=== PATIENT | male | born 1930 | race Caucasian/White ===

== ENCOUNTER 2017-04-05 08:04 | Outpatient (CLI) | payer MEDICARE, BC ==
--- OUTSIDE RECORDS SUMMARY | 2017-04-05 08:07 | XMS | Clinical Summary ---
:1930 Author Organization [facility] Address [address] [place] [address] Phone Care Team Providers Name Role Phone , Primary Care Provider Unavailable Allergies Not on File Current Medications Not on file Active Problems Not on file Social History Tobacco Use Types Packs/Day Years Used Date Never Assessed Sex Assigned at Date Recorded Not on file Last Filed Vital Signs Not on file Plan of Treatment Not on file Results Not on filefrom Last 3 Months
--- OUTSIDE RECORDS SUMMARY | 2017-04-05 08:07 | XMS | Clinical Summary ---
:1930 Author Organization [facility] Address [address] [place] [address] Phone Care Team Providers Name Role Phone [...]
[2017-04-05 09:35] LABS: Hematocrit 47.5 % (42.0-52.0); Mean Platelet Volume 8.3 fL (7.4-10.4); Red Blood Cell (RBC) Count 5.05 mill/uL (4.70-6.10); White Blood Cell (WBC) Count 9.6 thou/uL (4.8-10.8)
[2017-04-05 09:42] LABS: PTT 30.8 SEC (22.9-36.1); Prothrombin Time 14.2 SEC (12.0-14.7)
[2017-04-05 09:47] LABS: Anion Gap 14 mmol/L (10-20); BUN (Urea Nitrogen) 27 mg/dL (8.4-25.7); Calc. Creatinine Clearance 0 mL/min (70-130); Carbon Dioxide 26 mmol/L (23-31); Chloride 105 mmol/L (98-107); Estimated GFR-MDRD 48
== END 2017-04-05 08:05 | disposition home or self-care (01) ==
LOC: LABBT 08:04
PROVIDERS: ATTEND Urology
DX: Z01.812 Encounter for preprocedural laboratory examination (principal); N28.1 Cyst of kidney, acquired; Z87.442 Personal history of urinary calculi
CPT/HCPCS: 80048; 84153; 85027; 85610; 85730

== ENCOUNTER 2017-04-08 06:50 | Day surgery (SDC) | payer MEDICARE, BC ==
[2017-04-05 08:28] VITALS: BMI 26.6
--- OUTSIDE RECORDS SUMMARY | 2017-04-08 06:53 | XMS | Clinical Summary ---
:1930 Author Organization [facility] Address [address] [place] [address] Phone Care Team Providers Name Role Phone [...]
--- OUTSIDE RECORDS SUMMARY | 2017-04-08 06:53 | XMS | Clinical Summary ---
:1930 Author Organization [facility] Address [address] [place] [address] Phone Care Team Providers Name Role Phone [...]
[2017-04-08] MEDS ORDERED: Levofloxacin 500 mg/D5W 100 ml Premix Bag ONE (08:14)
[2017-04-08] MEDS ORDERED: Iothalamate Meglumine 60% 50 ML VIAL FS ONE (08:57)
[2017-04-08] MEDS ORDERED: Fentanyl 100 MCG/2 ML VIAL ONE (09:27)
[2017-04-08] MEDS ORDERED: Ondansetron HCl/PF 4 MG/2 ML Vial ONE (09:42)
[2017-04-08] MEDS ORDERED: PHENYLEPHRINE-NS 100 MCG/ML 10 ML SYRINGE ONE (09:42)
[2017-04-08] MEDS ORDERED: Dexamethasone 20 MG/5 ML VIAL ONE (09:42)
[2017-04-08] MEDS ORDERED: Propofol 200 MG/20 ML VIAL ONE (09:42)
[2017-04-08] MEDS ORDERED: mitoMYcin 40 MG, Mitomycin 10 MG in Sodium Chloride 0.9% 50 ML I-VESIC SCH (10:15)
--- NOTE | 2017-04-08 11:26 | RAD ---
RETROGRADE IVP: Date: 04/08/17 HISTORY: Bladder tumor. COMPARISON: 01/14/17. FINDINGS: There is retrograde opacification of both ureters. No obvious filling defects. No evidence of calice al dilatation. IMPRESSION: Fluoroscopy as above. POS: HARRY
--- NOTE | 2017-04-08 11:48 | OP ---
DATE OF PROCEDURE: 04/08/2017 PREOPERATIVE DIAGNOSIS: History of transitional cell carcinoma of the bladder. POSTOPERATIVE DIAGNOSIS: Recurrent tumor. PROCEDURES PERFORMED: Cystoscopy of bilateral retrogrades, transurethral resection of bladder tumor , and transurethral resection of prostate. SURGEON: Ayan Dickson M.D. ANESTHETIC: General. ESTIMATED BLOOD LOSS: Probably 50 mL. FINDINGS: He had some meatal stenosis and was gently dilated up to 26 Azerbaijani with Valentin sounds. 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 He had a 0.5 cm tumor on the anterior wall, a 1 cm tumor on the posterior wall, a tiny tumor in the mid trigone and then normal retrograde studies. OPERATIVE TECHNIQUE: After obtaining written and verbal consent from the patient after receiving IV antibiotics, he was taken to the operating suite. He was placed in the supine position on the [facility] table. PlexiPulses were placed on his lower extremities and turned on. He was given a genera l anesthetic and oral obturator intubation. He was placed in the dorsal lithotomy position and ster ilely prepped and draped. He was gently dilated with Valentin sounds from 18 up to 26 Azerbaijani and t hen the 22-Azerbaijani resectoscope sheath was placed under direct vision and well lubricated through the male urethra into the bladder with aid of 30-degree lens and video camera and monitor. The bladder was filled and emptied a number of times and examined with both the 30- and the 70-degree lenses wi th the findings above. The 30-degree lens was then used again and a 5 Azerbaijani Pollack catheter was f lushed with contrast. A tube fitter KUB was taken with the fluoroscopy unit and catheter was placed in th e left ureteral orifice and contrast was injected in a retrograde manner filling out the left ureter and renal pelvis and caliceal system slowly about 12 mL used. Right side was done in the same way. There were no persistent filling defects noted and each side drained well. At this point, the ins truments were removed. A 24-Azerbaijani resectoscope sheath with Lincoln obturator was passed through the male urethra into the bladder. An SpokenLayer resectoscope with a bladder tumor currently and a g yrus generator and 30-degree lens were used. We resected the anterior wall tumor, sent this specime n off, the posterior wall tumor sent this specimen off, the tiny tumor on the trigone was resected, but not sent off because of the size. We then resected the prostatic urethra where these tumors wer e involved and then elliked these specimen out and sent that off and then cauterized to obtain moi aponte. At this point, Felipe catheter was placed. It was hand irrigated and was light pink and then cleared up nicely. Mitomycin C was placed 50 mg in 50 mL of saline and the catheter was plugged. A rectal exam was done. There was no prosthetic induration or nodularity noted. The patient was ta perry out of dorsal lithotomy position, awakened, extubated, and taken by stretcher to the recovery ro om.
== END 2017-04-08 14:00 | disposition home or self-care (01) ==
LOC: SDC 06:50
PROVIDERS: ATTEND Urology
PROC: 0TBB8ZZ Excision of Bladder, Via Natural or Artificial Opening Endoscopic (ICD-10-PCS; principal; 2017-04-08)
PROC: 0VT08ZZ Resection of Prostate, Via Natural or Artificial Opening Endoscopic (ICD-10-PCS; 2017-04-08)
DX: C67.8 Malignant neoplasm of overlapping sites of bladder (principal); N40.0 Benign prostatic hyperplasia without lower urinary tract symptoms; N41.0 Acute prostatitis; N41.1 Chronic prostatitis; Z90.49 Acquired absence of other specified parts of digestive tract; Z98.42 Cataract extraction status, left eye; Z98.41 Cataract extraction status, right eye; Z98.890 Other specified postprocedural states
CPT/HCPCS: 52354; 52601; 74420; 82962; 88305; 88307; C1758; J9280 ×2; 36416; J1100; J1956; J2405; J2704; J3010; J7050; Q9961

== ENCOUNTER 2017-10-11 09:38 | Outpatient (CLI) | payer MEDICARE, BC ==
[2017-10-11 11:02] LABS: Hemoglobin 15.2 g/dL (14.0-18.0); Mean Corpuscular HGB CONC 33.5 g/dL (32.0-36.0); Mean Corpuscular Hemoglobin 31.5 pg (27.0-31.0); Mean Corpuscular Volume 94.2 fl (80.0-94.0); Mean Platelet Volume 8.2 fL (7.4-10.4); Platelet Count 207 thou/uL (130-400); Red Blood Cell (RBC) Count 4.83 mill/uL (4.70-6.10); White Blood Cell (WBC) Count 8.4 thou/uL (4.8-10.8)
[2017-10-11 11:11] LABS: PTT 30.4 SEC (22.9-36.1); Prothrombin Time 13.5 SEC (12.0-14.7)
[2017-10-11 11:12] LABS: Anion Gap 11 mmol/L (10-20); BUN (Urea Nitrogen) 21 mg/dL (8.4-25.7); Calc. Creatinine Clearance 0 mL/min (70-130); Calcium 9.9 mg/dL (7.8-10.44); Carbon Dioxide 27 mmol/L (23-31); Chloride 106 mmol/L (98-107); Estimated GFR-MDRD 43; Glucose 215 mg/dL (83-110); Potassium 4.1 mmol/L (3.5-5.1); Sodium 140 mmol/L (136-145)
== END 2017-10-11 09:39 | disposition home or self-care (01) ==
LOC: LABBT 09:38
PROVIDERS: ATTEND Urology
DX: Z01.818 Encounter for other preprocedural examination (principal); C67.9 Malignant neoplasm of bladder, unspecified
CPT/HCPCS: 80048; 85027; 85610; 85730; 93005; 93010

== ENCOUNTER 2017-10-14 06:39 | Day surgery (SDC) | payer MEDICARE, BC ==
[2017-10-11 10:15] VITALS: BMI 25.8
[2017-10-14] MEDS ORDERED: CEFAZOLIN/Water 2 GM/20 ML SYRINGE ONE (08:20)
[2017-10-14] MEDS ORDERED: Fentanyl 100 MCG/2 ML VIAL ONE (08:22)
--- NOTE | 2017-10-14 11:24 | OP ---
DATE OF PROCEDURE: 10/14/2017 PREOPERATIVE DIAGNOSES: History of transitional cell carcinoma of the bladder, recent positive FISH and bladder lesion. POSTOPERATIVE DIAGNOSES: History of transitional cell carcinoma of the bladder, recent positive FISH and bladder lesion. PROCEDURE PERFORMED: Cystoscopy, biopsy, TURBT. SURGEON: Dr. Ayan Dickson ANESTHETIC: General. ESTIMATED BLOOD LOSS: Minimal. DRAINS PLACED: An 18-New Zealander Felipe 15 mL. PATH SENT: Right wall 1 cm TURBT. Two tiny lesions near left ureteral orifice and then random biops ies, 3 separate specimens. OPERATIVE TECHNIQUE: After obtaining written and verbal consent from the patient after receiving IV antibiotics, he was taken the operating suite. He was placed in the supine position on the treatment table. PlexiPulses were placed on his lower extremities and turned on. He was given a general anes thetic, oral intubation. He was placed in the dorsal lithotomy position, sterilely prepped and drape d. Cystoscopy was performed with a 22-New Zealander sheath. This was well lubricated and passed in direct vision through the male urethra into the urinary bladder with aid of a 30-degree lens and video camer a and monitor. The bladder was filled and emptied a number of times and examined with both a 30 and a 70 lens. The lesions were identified. We used a cold cup biopsy forceps to get the 2 lesions by t galina left UO and then to do some random biopsies. We then removed the instruments, gently dilated him up to 26 New Zealander with Valentin sounds and passed a 24-New Zealander resectoscope with visual obturator and a 30-degree lens through the urethra and into the bladder. We used initially the gyrus to cauterize jeremy mojica biopsy sites and then to resect the tumor high in the right wall and these specimens were sent off . We controlled hemostasis, found it to be good, removed the instruments, passed a Felipe catheter, i nflated the balloon. It was draining a clear to light pink urine. He was awakened, extubated, and t terra by stretcher to recovery room.
[2017-10-14] MEDS ORDERED: Lidocaine 1% PF 5 ML VIAL ONE (16:19)
[2017-10-14] MEDS ORDERED: PROPOFOL 200 MG/20 ML VIAL ONE (16:19)
[2017-10-14] MEDS ORDERED: PHENYLEPHRINE-NS 100 MCG/ML 10 ML SYRINGE ONE (16:19)
[2017-10-14] MEDS ORDERED: Ondansetron HCl/PF 4 MG/2 ML Vial ONE (16:19)
== END 2017-10-14 12:09 | disposition home or self-care (01) ==
LOC: SDC 06:39
PROVIDERS: ATTEND Urology
PROC: 0TBB8ZX Excision of Bladder, Via Natural or Artificial Opening Endoscopic, Diagnostic (ICD-10-PCS; principal; 2017-10-14)
DX: Z98.890 Other specified postprocedural states; C67.9 Malignant neoplasm of bladder, unspecified
CPT/HCPCS: 36416; 88305; J2001; J2405; J2704; J3010

== ENCOUNTER 2018-07-16 08:27 | Outpatient (CLI) | payer MEDICARE, BC ==
[2018-07-16 09:30] LABS: Hemoglobin 16.2 g/dL (14.0-18.0); Mean Corpuscular HGB CONC 33.6 g/dL (32.0-36.0); Mean Corpuscular Hemoglobin 30.8 pg (27.0-31.0); Mean Corpuscular Volume 91.7 fL (78.0-98.0); Mean Platelet Volume 8.4 fL (7.4-10.4); Platelet Count 208 thou/uL (130-400); RBC Distribution Width 13.1 % (11.5-14.5); Red Blood Cell (RBC) Count 5.26 mill/uL (4.70-6.10); White Blood Cell (WBC) Count 7.7 thou/uL (4.8-10.8)
[2018-07-16 09:38] LABS: PTT 31.1 SEC (22.9-36.1)
[2018-07-16 09:52] LABS: Anion Gap 12 mmol/L (10-20); BUN (Urea Nitrogen) 36 mg/dL (8.4-25.7); Calc. Creatinine Clearance 0 mL/min (70-130); Calcium 9.8 mg/dL (7.8-10.44); Carbon Dioxide 27 mmol/L (23-31); Chloride 105 mmol/L (98-107); Estimated GFR-MDRD 45; Glucose 168 mg/dL (83-110); Potassium 4.3 mmol/L (3.5-5.1); Sodium 140 mmol/L (136-145)
== END 2018-07-16 08:28 | disposition home or self-care (01) ==
LOC: LABBT 08:27
PROVIDERS: ATTEND Urology
DX: Z01.812 Encounter for preprocedural laboratory examination (principal); C67.9 Malignant neoplasm of bladder, unspecified

== ENCOUNTER 2018-07-21 05:35 | Day surgery (SDC) | payer MEDICARE, BC ==
[2018-07-16 08:53] VITALS: BMI 27.3
[2018-07-21] MEDS ORDERED: Levofloxacin 500 mg/D5W 100 ml Premix Bag ONE (06:19)
[2018-07-21] MEDS ORDERED: Fentanyl 100 MCG/2 ML VIAL ONE (06:41)
[2018-07-21] MEDS ORDERED: Iothalamate Meglumine 60% 50 ML VIAL FS ONE (07:10)
--- NOTE | 2018-07-21 09:10 | RAD ---
RETROGRADE URETEROGRAM: History: Bladder tumor. FINDINGS: Intraoperative fluoroscopy was provided for retrograde study as performed by Dr. Marte. Spot fluoros copic images show contrast opacification of each nondilated renal collecting system and ureter. No ev idence of leak. POS: HARRY
--- NOTE | 2018-07-21 15:26 | OP ---
DATE OF PROCEDURE: 07/21/2018 PREOPERATIVE DIAGNOSES: 1. Bladder lesion. 2. History of transitional cell carcinoma of the bladder. POSTOPERATIVE DIAGNOSES: 1. Bladder lesion. 2. History of transitional cell carcinoma of the bladder. PROCEDURE PERFORMED: Cysto bilateral retrogrades and biopsy and fulguration of bladder lesions, right wall ANESTHESIA: General. ESTIMATED BLOOD LOSS: Minimal. DRAINS: None. PATHOLOGY SENT: Right wall biopsies x4. FINDINGS: There is an area in the right wall that is raised and inflamed mucosa that was biopsied with a cold cup biopsy and then cauterized. Retrograde studies showed no evidence of persistent filling defects or obstruction hydronephrosis. DESCRIPTION OF PROCEDURE: Obtained written and verbal consent from the patient, after receiving IV antibiotics, he was taken to the OR and placed in a supine position on the treatment table.Cystoscopy was performed witha 22 fr sheath and 30 degree lens. It was passed well lubricated through the male urethra and into the bladder. The bladder was filled and emptied number of times and examined both the 30 and the 70-degree lens. The above findings are as mentioned. A 5-Nepali cone-tipped catheter was brought in and flushed with contrast. it was placed into the right uo and contrast was slowly injected in a retrograde manner. Images were taken with fluoroscopy unit. There was a little bit of reflex of the left side. The left side was done and in a similiar manner and drainage films were taken on both sides. At this point, a cold cup biopsy forceps was used to biopsy the area on the right wall and then a Bugbee was used to cauterize the biopsy sites and this surrounding area. The patient did not have a catheter left in. The instruments were removed. He was awakened and extubated and taken by a stretcher to the recovery room. Job ID: [id number] [facility]
[2018-07-21] MEDS ORDERED: Ondansetron PF 4 MG/2 ML Vial ONE (16:05)
[2018-07-21] MEDS ORDERED: Metoclopramide HCl 10 MG/2 ML VIAL ONE (16:05)
[2018-07-21] MEDS ORDERED: Rocuronium Bromide 10 MG/ML (10ML VIAL) ONE (16:05)
[2018-07-21] MEDS ORDERED: PHENYLEPHRINE-NS 100 MCG/ML 10 ML SYRINGE ONE (16:05)
[2018-07-21] MEDS ORDERED: Lidocaine 1% PF 5 ML VIAL ONE (16:05)
[2018-07-21] MEDS ORDERED: PROPOFOL 200 MG/20 ML VIAL ONE (16:05)
[2018-07-21] MEDS ORDERED: Glycopyrrolate 0.2 MG/ML 5 ML SYRINGE ONE (16:05)
== END 2018-07-21 13:00 | disposition home or self-care (01) ==
LOC: SDC 05:35
PROVIDERS: ATTEND Urology
PROC: 0TBB8ZX Excision of Bladder, Via Natural or Artificial Opening Endoscopic, Diagnostic (ICD-10-PCS; principal; 2018-07-21)
DX: N30.00 Acute cystitis without hematuria (principal); N30.20 Other chronic cystitis without hematuria; N32.89 Other specified disorders of bladder; I10 Essential (primary) hypertension; E11.9 Type 2 diabetes mellitus without complications; Z85.51 Personal history of malignant neoplasm of bladder; Z79.4 Long term (current) use of insulin; Z79.82 Long term (current) use of aspirin; Z79.899 Other long term (current) drug therapy
CPT/HCPCS: 52204; 74420; 82962; 88305; C1758; 36416; J1956; J2001; J2405; J2704; J2765; J3010; Q9961

== ENCOUNTER 2019-04-28 07:18 | Inpatient (IN) | payer MEDICARE, BC ==
[2019-04-28 08:08] LABS: #Basophils 0.1 thou/uL (0.0-0.2); #Eosinphils 0.1 thou/uL (0.0-0.7); #Monocytes 1.1 thou/uL (0.11-0.59); #Neutrophils 6.6 thou/uL (1.40-6.50); %Basophils 0.7 % (0.0-1.0); %Eosinophils 0.6 % (0.0-10.0); %Lymphocytes 20.1 % (21.0-51.0); %Monocytes 11.1 % (0.0-10.0); %Neutrophils 67.6 % (42.0-75.0); Hemoglobin 14.4 g/dL (14.0-18.0); Mean Corpuscular HGB CONC 33.1 g/dL (32.0-36.0); Mean Corpuscular Hemoglobin 30.5 pg (27.0-31.0); Mean Corpuscular Volume 92.2 fL (78.0-98.0); Platelet Count 224 thou/uL (130-400); RBC Distribution Width 12.8 % (11.5-14.5); Red Blood Cell (RBC) Count 4.71 mill/uL (4.70-6.10); White Blood Cell (WBC) Count 9.7 thou/uL (4.8-10.8)
[2019-04-28 08:18] LABS: PTT 33.5 SEC (22.9-36.1); Prothrombin Time 13.5 SEC (12.0-14.7)
[2019-04-28 08:38] LABS: ALT (SGPT) 10 U/L (8-55); AST (SGOT) 14 U/L (5-34); Alkaline Phosphatase 145 U/L (40-110); Anion Gap 10 mmol/L (10-20); BUN (Urea Nitrogen) 25 mg/dL (8.4-25.7); Bilirubin, Total 0.7 mg/dL (0.2-1.2); Calc. Creatinine Clearance 0 mL/min (70-130); Carbon Dioxide 30 mmol/L (23-31); Chloride 103 mmol/L (98-107); Estimated GFR-MDRD 53; Glucose 121 mg/dL (83-110); Potassium 3.7 mmol/L (3.5-5.1); Sodium 139 mmol/L (136-145)
[2019-04-28] MEDS ORDERED: Senokot S 8.6-50 MG TAB PO PRN (13:10)
[2019-04-28] MEDS ORDERED: Acetaminophen 325 MG TAB PO PRN (13:10)
--- NOTE | 2019-04-28 14:13 | HP ---
PRIMARY CARE PHYSICIAN: Dr. Yuen. CHIEF COMPLAINT: Hematochezia. HISTORY OF PRESENT ILLNESS: Mr. Espino is a very pleasant 89-year-old man who reported to the emergency room for hematochezia x1 week. Reports that he has gotten worse in the last 3 days. Describes bright red blood intermittent throughout the day and reports abdominal fullness, but denies any particular pain. Denies any dizziness or shortness of breath. He denies any symptoms of anything similar and denies a history of hemorrhoids. Reports that he has had a colonoscopy in the past, but it was quite some time ago. He denies taking any blood thinners. Reports that he was on Eliquis at some point, but has been taken off it by the EP doctor in [place]. The patient has a past medical history pertinent for diabetes type 2, hypertension, cardiac arrhythmias status post pacemaker, bladder cancer surgery x2. The patient was found to have normal hemoglobin 14.4, hematocrit 43.4, and platelet count is 224. Occult blood positive. Comprehensive metabolic panel unremarkable and PT and PTT also within normal limits. The patient was admitted to the medical floor for further management. REVIEW OF SYSTEMS: The patient denies any fever or chills. Reports hematochezia, stool changes. Denies any nausea, vomiting, or abdominal pain. Reports fullness. Denies any dysuria or hematuria. All other systems reviewed and negative unless mentioned in the HPI. PAST MEDICAL HISTORY: Diabetes, hypertension, arrhythmia status post pacemaker, gout, high cholesterol bladder cancer. PAST SURGICAL HISTORY: Bladder cancer x2, left leg surgery, pacemaker placement, cholecystectomy. PSYCHIATRIC HISTORY: None. SOCIAL HISTORY: Denies any alcohol or drug use. No smoking history. PHYSICAL EXAMINATION: VITAL SIGNS: Blood pressure 142/61, pulse 61, respirations 24, temperature 98.2, and O2 sats are 96% on room air. CONSTITUTIONAL: The patient is in no distress. He is alert and oriented to person, place, and time. Appears pain-free. HEENT: Head is atraumatic and normocephalic. Eyes, pupils are equally round and reactive to light. Extraocular muscles are intact. ENT, mouth exam is normal. Mucous membranes are moist. NECK: Normal range of motion. Trachea is midline. RESPIRATORY: Chest, breath sounds are clear. Chest expansion is equal. CARDIOVASCULAR: Regular rate and rhythm. Has a systolic murmur 2/6. ABDOMEN: Nontender. Bowel sounds are heard. Rectal exam performed in the ER. Stool red, prostate firm, no hemorrhoids were noted. BACK: Normal range of motion. No tenderness. EXTREMITIES: Upper extremity, normal inspection, normal range of motion. Motor strength is normal. Radial pulses are normal. Lower extremity, normal range of motion. Motor strength is normal. Pedal pulses are normal. There is no edema noted. NEUROLOGIC: The patient is oriented to person, place, and time. Speech is normal. SKIN: Warm, dry, normal in color. PLAN/ASSESSMENT: 1. Lower gastrointestinal bleed. Ask GI to consult. Iron studies have been placed. Repeat hemoglobin and hematocrit in 6 hours. 2. Protonix 40 mg q.12 hours. Hold any medications such as aspirin, clear liquid diet starting at dinner. 3. Diabetes, type 2. Restart home medications. Accu-Cheks before meals and at bedtime. Sliding scale as needed. 4. Hypertension. Restart home medications. We will trend. 5. Hospital course dependent on clinical findings. Job ID: [id number]
[2019-04-28 14:50] LABS: Iron 63 ug/dL (65-175); Iron Binding Capacity, Total 223 mcg/dL (261-462)
[2019-04-28] MEDS: Sodium Chloride 0.9% 1,000 ML IV SCH (16:05)
[2019-04-28 16:54] VITALS: BMI 23.3
[2019-04-28] MEDS ORDERED: traMADol HCl 50 MG TAB PO PRN (18:32)
[2019-04-28] MEDS ORDERED: HumaLOG 300 UNITS/3 ML VIAL SC PRN ×2 (18:32)
[2019-04-28] MEDS ORDERED: Dextrose 50% Abboject 50 ML SYRINGE SLOW IVP PRN (18:32)
[2019-04-28] MEDS ORDERED: Dextrose 5% in Water 1,000 ML IV PRN (18:32)
[2019-04-28 19:21] LABS: Hemoglobin 14.1 g/dL (14.0-18.0)
[2019-04-28] MEDS ORDERED: Non-Formulary Item 1 EACH (Amlodipine/Atorvastatin [Caduet] 1 TABLET) PO SCH (21:00)
[2019-04-28] MEDS: Allopurinol 300 MG TAB PO SCH (21:06)
[2019-04-28] MEDS: Atenolol 25 MG TAB PO SCH (21:06)
[2019-04-28] MEDS: Atorvastatin Calcium 10 MG TAB PO SCH (21:07)
[2019-04-28] MEDS: Famotidine 20 MG TAB PO SCH (21:07)
[2019-04-28] MEDS: Amlodipine 5 MG TAB PO SCH (21:07)
[2019-04-28] MEDS: Pantoprazole 40 MG VIAL IVP SCH (21:09)
[2019-04-29] MEDS: Sodium Chloride 0.9% 1,000 ML IV SCH ×4 (02:00→15:40)
[2019-04-29 07:27] LABS: #Eosinphils 0.1 thou/uL (0.0-0.7); #Monocytes 0.9 thou/uL (0.11-0.59); #Neutrophils 6.5 thou/uL (1.40-6.50); %Basophils 0.3 % (0.0-1.0); %Eosinophils 1.1 % (0.0-10.0); %Lymphocytes 21.3 % (21.0-51.0); %Monocytes 9.7 % (0.0-10.0); %Neutrophils 67.6 % (42.0-75.0); Hemoglobin 13.6 g/dL (14.0-18.0); Mean Corpuscular Hemoglobin 31.2 pg (27.0-31.0); Mean Corpuscular Volume 91.7 fL (78.0-98.0); Mean Platelet Volume 8.3 fL (7.4-10.4); Platelet Count 214 thou/uL (130-400); RBC Distribution Width 12.9 % (11.5-14.5); Red Blood Cell (RBC) Count 4.37 mill/uL (4.70-6.10); White Blood Cell (WBC) Count 9.6 thou/uL (4.8-10.8)
[2019-04-29 07:57] LABS: ALT (SGPT) 9 U/L (8-55); AST (SGOT) 13 U/L (5-34); Albumin 3.6 g/dL (3.4-4.8); Alkaline Phosphatase 127 U/L (40-110); Anion Gap 14 mmol/L (10-20); BUN (Urea Nitrogen) 20 mg/dL (8.4-25.7); Bilirubin, Total 1.3 mg/dL (0.2-1.2); Calc. Creatinine Clearance 56 mL/min (70-130); Calcium 9.1 mg/dL (7.8-10.44); Carbon Dioxide 25 mmol/L (23-31); Chloride 103 mmol/L (98-107); Estimated GFR-MDRD 67; Globulin 2.8 g/dL (2.4-3.5); Glucose 119 mg/dL (83-110); Potassium 3.9 mmol/L (3.5-5.1); Protein, Total 6.4 g/dL (5.8-8.1); Sodium 138 mmol/L (136-145)
[2019-04-29] MEDS: Famotidine 20 MG TAB PO SCH ×2 (08:54→20:42)
[2019-04-29] MEDS: Pantoprazole 40 MG VIAL IVP SCH ×2 (08:55→20:43)
[2019-04-29] MEDS: Hydrochlorothiazide 25 MG TAB PO SCH (08:55)
[2019-04-29] MEDS: Valsartan 80 MG TAB PO SCH (08:58)
[2019-04-29] MEDS ORDERED: Non-Formulary Item 1 EACH (Valsartan/Hydrochlorothiazide [Valsartan-Hctz 160-12.5 Mg Tab] PO SCH (09:00)
--- NOTE | 2019-04-29 13:58 | PDOC.HOSPP ---
- Subjective Encounter Date: 04/29/19 Encounter Time: 10:15 Subjective: Patient seen and examined. No new complaints. No overnight events now no bleeding but has urge to go but do not have BM - Objective Vital Signs & Weight: Vital Signs (12 hours) Temp Pulse Resp BP Pulse Ox 04/29/19 08:00 95 04/29/19 06:55 97.8 F 67 18 105/61 95 04/29/19 04:00 97.5 F L 60 15 123/65 95 Weight Weight 176 lb 9.6 oz Result Diagrams: 04/29/19 06:41 04/29/19 06:41 Additional Labs: Accuchecks 04/29/19 04/29/19 04/28/19 11:59 05:11 20:41 POC Glucose 134 H 109 166 H Hospitalist ROS - Review of Systems Constitutional: denies: fever, chills, sweats, weakness, malaise, other Eyes: denies: pain, vision change, conjunctivae inflammation, eyelid inflammation, redness, other ENT: denies: ear pain, ear discharge, nose pain, nose discharge, nose congestion , mouth pain, mouth swelling, throat pain, throat swelling, other Respiratory: denies: cough, dry, shortness of breath, hemoptysis, SOB with excertion, pleuritic pain, sputum, wheezing, other Cardiovascular: denies: chest pain, palpitations, orthopnea, paroxysmal noc. dyspnea, edema, light headedness, other Gastrointestinal: denies: nausea, vomiting, abdominal pain, diarrhea, constipation, melena, hematochezia, other Genitourinary: denies: dysuria, frequency, incontinence, hematuria, retention, other Musculoskeletal: denies: neck pain, shoulder pain, arm pain, back pain, hand pain, leg pain, foot pain, other Skin: denies: rash, lesions, jeny, bruising, other - Medication Medications: Active Medications Generic Name Dose Route Start Last Admin Trade Name Freq PRN Reason Stop Dose Admin Allopurinol 300 mg 04/28/19 21:00 04/28/19 21:06 Zyloprim PO 300 mg QPM TAMMY Administration Amlodipine Besylate 5 mg 04/28/19 21:00 04/28/19 21:07 Norvasc PO 5 mg HS TAMMY Administration Atenolol 25 mg 04/28/19 21:00 04/28/19 21:06 Tenormin PO 25 mg HS TAMMY Administration Atorvastatin Calcium 10 mg 04/28/19 21:00 04/28/19 21:07 Lipitor PO 10 mg HS TAMMY Administration Famotidine 20 mg 04/28/19 21:00 04/29/19 08:54 Pepcid PO 20 mg BID TAMMY Administration Hydrochlorothiazide 12.5 mg 04/29/19 09:00 04/29/19 08:55 Hydrochlorothiazide PO Not Given DAILY TAMMY Sodium Chloride 1,000 mls @ 75 mls/hr 04/28/19 13:15 04/29/19 05:05 Normal Saline 0.9% IV 1,000 mls .[id number] TAMMY Administration Pantoprazole Sodium 40 mg 04/28/19 21:00 04/29/19 08:55 Protonix IVP 40 mg Q12HR TAMMY Administration Valsartan 160 mg 04/29/19 09:00 04/29/19 08:58 Diovan PO Not Given DAILY TAMMY - Exam General Appearance: NAD, awake alert Eye: PERRL, anicteric sclera ENT: normocephalic atraumatic, no oropharyngeal lesions Neck: supple, symmetric, no JVD, no thyromegaly Heart: RRR, no murmur, no gallops, no rubs Respiratory: CTAB, no wheezes, no rales, no ronchi Gastrointestinal: soft, non-tender, non-distended, normal bowel sounds Extremities: no cyanosis, no clubbing, no edema Skin: normal turgor, no lesions, no rashes Neurological: cranial nerve grossly intact, normal sensation to touch, no focal deficits Musculoskeletal: normal tone, normal strength Psychiatric: normal affect, normal behavior Hosp A/P (1) Lower GI bleed Code(s): K92.2 - GASTROINTESTINAL HEMORRHAGE, UNSPECIFIED Status: Acute (2) Diabetes type 2, controlled Code(s): E11.9 - TYPE 2 DIABETES MELLITUS WITHOUT COMPLICATIONS Status: Chronic Qualifiers: Diabetes mellitus senior care insulin use: with intermediate accountant use Diabetes mellitus complication status: without complication Qualified Code(s): E11.9 - Type 2 diabetes mellitus without complications; Z79.4 - retirement (current) use of insulin (3) Gout Code(s): M10.9 - GOUT, UNSPECIFIED Status: Chronic Qualifiers: Laterality: unspecified laterality Presence of tophus: without tophus (4) HTN (hypertension) Code(s): I10 - ESSENTIAL (PRIMARY) HYPERTENSION Status: Chronic Qualifiers: Hypertension type: essential hypertension Qualified Code(s): I10 - Essential (primary) hypertension - Plan old records reviewed/req 04/29/19 H & H mild drop, no need for blood transfusion GI consulted May need colonoscopy continue IVF, clear liquid diet medication reviewed as above symptomatic treatment
[2019-04-29] MEDS ORDERED: GoLYTELY 4,000 ml Bottle PO SCH (15:00)
--- NOTE | 2019-04-29 16:39 | CON ---
DATE OF CONSULTATION: REASON FOR CONSULT: Rectal bleeding. HISTORY OF PRESENT ILLNESS: Mr. Espino is an 89-year-old man, who was admitted to the hospital with chief complaint of having rectal bleeding for the last 2 weeks. He reports having had rectal bleeding characterized as mostly bright red blood per rectum associated with bowel movement over the last 2 weeks. The stool frequency has increased 3 to 4 times daily during this time. He denies any diarrhea. He denies having any bloody diarrhea or passing clots. Other than having some fullness in the lower abdomen, he denies any localizing pain. Otherwise, he has been eating well with good appetite. There is no nausea or vomiting. There is no weight loss. He did have a colonoscopy by Dr. Forest Fleming 10 years ago, at which time, diffuse diverticulosis was noted. A benign transverse polyp was removed. PAST MEDICAL HISTORY: 1. Hypertension. 2. Diabetes. 3. Hyperlipidemia. 4. History of bladder cancer. 5. Status post pacemaker placement. 6. Status post cholecystectomy. FAMILY HISTORY: Negative for any known GI problem, liver disease, or GI malignancy. SOCIAL HISTORY: The patient has no tobacco or alcohol usage. REVIEW OF SYSTEMS: Ten-point review of systems did not show any other pertinent positives or negatives. ALLERGIES: NO KNOWN DRUG ALLERGY. MEDICATIONS: At home include; 1. Insulin. 2. Tenormin 25 mg at bedtime. 3. Allopurinol 200 mg daily. 4. Multivitamin. 5. Valsartan/hydrochlorothiazide 160/12.5 daily. 6. Aspirin 81 mg daily. 7. Caduet one p.o. at bedtime. 8. Tramadol p.r.n. pain. PHYSICAL EXAMINATION: VITAL SIGNS: Temperature is 97.8, blood pressure 105/61, and pulse of 67. GENERAL: He is alert, conversant, no distress. HEENT: Anicteric sclerae. Oropharynx is clear. NECK: Supple. CV: Shows normal S1 and S2. Regular rate and rhythm. CHEST: Shows a breath sounds. ABDOMEN: Mildly protuberant, but soft and nontender. No distention. No tympany. He has active bowel sounds. EXTREMITIES: Shows no edema. LABORATORY DATA: WBCs 9.6, hemoglobin 13.6, MCV of 91.7, and platelet count of 214. Electrolytes within normal range. Creatinine is 1.05, bilirubin 1.3, alkaline phosphatase 127, AST 13, and ALT 9. ASSESSMENT: Rectal bleeding x2 weeks with some change in bowel function during this time. He did have history of diverticulosis coli; however, his current bleeding is not typical for diverticular bleed. With history of having adenomatous polyp, a more aggressive process is a possibility. Alternatively, he could just have benign rectal outlet bleeding. The patient is not anemic. Currently, he feels fine without any bleeding over the last 36 hours. RECOMMENDATION: 1. Bowel prep today. 2. Proceed with colonoscopy in a.m. Job ID: [id number]
[2019-04-29] MEDS: Allopurinol 300 MG TAB PO SCH (20:41)
[2019-04-29] MEDS: Amlodipine 5 MG TAB PO SCH (20:42)
[2019-04-29] MEDS: Atenolol 25 MG TAB PO SCH (20:42)
[2019-04-29] MEDS: Atorvastatin Calcium 10 MG TAB PO SCH (20:43)
[2019-04-30] MEDS: Sodium Chloride 0.9% 1,000 ML IV SCH ×2 (05:41→17:25)
[2019-04-30] MEDS: Valsartan 80 MG TAB PO SCH (10:12)
[2019-04-30] MEDS: Pantoprazole 40 MG VIAL IVP SCH ×2 (10:12→20:33)
[2019-04-30] MEDS: Famotidine 20 MG TAB PO SCH ×2 (10:12→20:32)
[2019-04-30] MEDS: Hydrochlorothiazide 25 MG TAB PO SCH (10:12)
--- NOTE | 2019-04-30 10:35 | PDOC.HOSPP ---
- Subjective Encounter Date: 04/30/19 Encounter Time: 09:10 Subjective: Patient seen and examined. No new complaints. No overnight events - Objective Vital Signs & Weight: Vital Signs (12 hours) Temp Pulse Resp BP Pulse Ox 04/30/19 08:00 95 04/30/19 07:42 98.1 F 64 16 122/62 95 04/30/19 05:19 97.6 F 62 18 131/62 94 L 04/30/19 00:25 97.4 F L 59 L 18 114/60 94 L Weight Weight 176 lb 9.6 oz Result Diagrams: 04/29/19 06:41 04/29/19 06:41 Additional Labs: Accuchecks 04/30/19 04/29/19 04/29/19 04:47 19:11 15:35 POC Glucose 117 H 238 H 130 H 04/29/19 11:59 POC Glucose 134 H Hospitalist ROS - Review of Systems Eyes: denies: pain, vision change, conjunctivae inflammation, eyelid inflammation, redness, other ENT: denies: ear pain, ear discharge, nose pain, nose discharge, nose congestion , mouth pain, mouth swelling, throat pain, throat swelling, other Respiratory: denies: cough, dry, shortness of breath, hemoptysis, SOB with excertion, pleuritic pain, sputum, wheezing, other Cardiovascular: denies: chest pain, palpitations, orthopnea, paroxysmal noc. dyspnea, edema, light headedness, other Gastrointestinal: reports: hematochezia. denies: nausea, vomiting, abdominal pain, diarrhea, constipation, melena, other Genitourinary: denies: dysuria, frequency, incontinence, hematuria, retention, other Musculoskeletal: denies: neck pain, shoulder pain, arm pain, back pain, hand pain, leg pain, foot pain, other Skin: denies: rash, lesions, jeny, bruising, other - Medication Medications: Active Medications Generic Name Dose Route Start Last Admin Trade Name Freq PRN Reason Stop Dose Admin Allopurinol 300 mg 04/28/19 21:00 04/29/19 20:41 Zyloprim PO 300 mg QPM TAMMY Administration Amlodipine Besylate 5 mg 04/28/19 21:00 04/29/19 20:42 Norvasc PO 5 mg HS TAMMY Administration Atenolol 25 mg 04/28/19 21:00 04/29/19 20:42 Tenormin PO 25 mg HS TAMMY Administration Atorvastatin Calcium 10 mg 04/28/19 21:00 04/29/19 20:43 Lipitor PO 10 mg HS TAMMY Administration Famotidine 20 mg 04/28/19 21:00 04/30/19 10:12 Pepcid PO Not Given BID TAMMY Hydrochlorothiazide 12.5 mg 04/29/19 09:00 04/30/19 10:12 Hydrochlorothiazide PO Not Given DAILY TAMMY Sodium Chloride 1,000 mls @ 75 mls/hr 04/28/19 13:15 04/30/19 05:41 Normal Saline 0.9% IV 1,000 mls .[id number] TAMMY Administration Pantoprazole Sodium 40 mg 04/28/19 21:00 04/30/19 10:12 Protonix IVP Not Given Q12HR TAMMY Valsartan 160 mg 04/29/19 09:00 04/30/19 10:12 Diovan PO Not Given DAILY TAMMY - Exam General Appearance: NAD, awake alert Eye: PERRL, anicteric sclera ENT: normocephalic atraumatic, no oropharyngeal lesions Neck: supple, symmetric, no JVD, no thyromegaly Heart: RRR, no murmur, no gallops, no rubs Respiratory: CTAB, no wheezes, no rales, no ronchi Gastrointestinal: soft, non-tender, non-distended, normal bowel sounds Extremities: no cyanosis, no clubbing, no edema Skin: normal turgor, no lesions Neurological: cranial nerve grossly intact, no focal deficits Musculoskeletal: normal tone, normal strength Psychiatric: normal affect, normal behavior Hosp A/P (1) Lower GI bleed Code(s): K92.2 - GASTROINTESTINAL HEMORRHAGE, UNSPECIFIED Status: Acute (2) Diabetes type 2, controlled Code(s): E11.9 - TYPE 2 DIABETES MELLITUS WITHOUT COMPLICATIONS Status: Chronic Qualifiers: Diabetes mellitus mold yard worker insulin use: with mold yard worker use Diabetes mellitus complication status: without complication Qualified Code(s): E11.9 - Type 2 diabetes mellitus without complications; Z79.4 - tile sprayer (current) use of insulin (3) Gout Code(s): M10.9 - GOUT, UNSPECIFIED Status: Chronic Qualifiers: Laterality: unspecified laterality Presence of tophus: without tophus (4) HTN (hypertension) Code(s): I10 - ESSENTIAL (PRIMARY) HYPERTENSION Status: Chronic Qualifiers: Hypertension type: essential hypertension Qualified Code(s): I10 - Essential (primary) hypertension - Plan old records reviewed/req 04/29/19 H & H mild drop, no need for blood transfusion GI consulted May need colonoscopy continue IVF, clear liquid diet medication reviewed as above symptomatic treatment 04/30/19 today colonoscopy medication reviewed as above symptomatic treatment
[2019-04-30] MEDS ORDERED: ISOVUE-370 76%-LOCM 1 ML ONE (11:30)
[2019-04-30] MEDS ORDERED: HYDROmorphone 2 MG/ML VIAL SLOW IVP PRN (15:05)
[2019-04-30] MEDS ORDERED: Meperidine HCl/PF 25 MG/ML VIAL SLOW IVP PRN (15:05)
[2019-04-30] MEDS ORDERED: Promethazine HCl 25 MG/ML VIAL SLOW IVP PRN (15:05)
[2019-04-30] MEDS ORDERED: Morphine Sulfate 2 MG/ML SYRINGE SLOW IVP PRN (15:05)
[2019-04-30] MEDS ORDERED: Ondansetron HCl/PF 4 MG/2 ML Vial IVP PRN (15:05)
[2019-04-30] MEDS ORDERED: Ketorolac Tromethamine 30 MG/ML VIAL IVP PRN (15:05)
[2019-04-30] MEDS ORDERED: Promethazine HCl 25 MG/ML VIAL IM PRN (15:05)
[2019-04-30] MEDS ORDERED: PACU-Morphine 4MG/ML VIAL SLOW IVP PRN (15:05)
--- NOTE | 2019-04-30 18:22 | OP ---
DATE OF PROCEDURE: 04/30/2019 PREPROCEDURE DIAGNOSES: 1. Rectal bleeding for 2 weeks. 2. Associated change in bowel function. 3. Fullness in lower abdomen with pain. 4. History of bladder cancer. POSTPROCEDURE DIAGNOSES: 1. A 10-mm pedunculated polyp in the ascending colon, removed with snare polypectomy. 2. Rectal mass with induration and firmness in the anterior and left lateral wall of the rectum endoscopically. This extended for a distance of about 10 cm and showed a very contracted rectum with a feeling of induration of the rectal wall. It is unclear if this is a primary rectal lesion or something invading from the exterior or some type of radiation effect. Multiple biopsies were obtained. RECOMMENDATIONS: 1. CT scan of the abdomen and pelvis. 2. Transfuse. 3. Await biopsies. ANESTHESIA: TIVA. PROCEDURE IN DETAIL: After the patient was informed of the risks, benefits, and possible complications of endoscopy including perforation, bleeding, reaction to medication, and aspiration, informed consent was obtained. The patient was brought to endoscopy suite, where he was sedated in gradual fashion. He was placed in left lateral decubitus position. A rectal exam was performed. Rectal exam was grossly abnormal with narrowed constricted lumen, which was hard and fibrotic with a feeling of hardness and infiltration of the anterior and left lateral wall of the rectum. The posterior and right side were more soft. There was some scant blood on the examining glove. The endoscope was advanced to the anal canal for a distance of about 10 cm. Rectum was contracted with some signs of submucosal edema and hemorrhage. There was abnormal tissue in the very distal rectum and the appearance of a primary rectal cancer, something infiltrating in the wall. Again, the radiation effect or invading malignancy would be a concern for the prostate or bladder, although primary rectal cancer would be a thought as well. Multiple biopsies were taken from this area. The endoscope was then advanced to remainder of the colon, which was prepped well. There were a few small polyps in the ascending and cecal area, but these were not removed. There was a 1 cm semi-pedunculated polyp in the ascending colon, which was removed with a hot snare polypectomy. No other polyps, masses, or lesions were seen. Retroflexed views were not able to be obtained in the rectum due to the extreme compression. The scope was returned to forward position and removed. There was no evidence of perianal lesions. Job ID: [id number]
--- NOTE | 2019-04-30 19:09 | CT ---
CT ABDOMEN AND PELVIS WITH IV CONTRAST 04/30/2019 CLINICAL INFORMATION: Rectal mass COMPARISON: None. Technique: Multiple contiguous axial CT images are obtained through the abdomen and pelvis with IV contrast. Cor onal reformatted images are provided. FINDINGS: Lower Chest: There is prominent fat density at the right lung base which likely represents a pleural lipoma. Linear areas of atelectasis are seen at each lung base. There is a very tiny nonspecific 3 mm nodular density in the anterior aspect of the right middle lobe. Vessels: A dual-lead subclavian artery pacemaking device is noted in place. Vascular calcifications a nd atherosclerotic plaque are seen in the abdominal aorta and involving the iliac arteries. There is an infrarenal abdominal aortic aneurysm just above the level of the aortic bifurcation which measu res 3.9 cm x 3.5 cm with eccentric atherosclerotic plaque present. The aneurysm does not extend into the iliac arteries. Abdomen: Portal vein:Patent Gallbladder: Surgically absent. Liver: No focal hepatic lesions are seen. Spleen: Multiple splenic granulomata present. Pancreas: within normal limits. Adrenals: within normal limits. Kidneys: A 2.2 cm exophytic low-density lesion is seen at the posteromedial aspect superior pole righ t kidney which cannot be characterized as a simple cyst on this exam. There is a fluid attenuation approximately 2.2 cm hypodense lesion superior pole left kidney compatible with a cyst. Subcentimeter too small to characterize hypodense lesions are seen involving the kidneys bilaterally. There is no hydronephrosis. Bowel: There is a large rectal mass with extension of the mass into the adjacent perirectal fat with adjacent perirectal inflammatory changes. This large rectal mass measures approximately 11.4 cm craniocaudal x 4.9 cm transverse x 6.2 cm AP. The mass does not result in obstruction. There is colon ic diverticulosis present involving the descending colon. Appendix: The appendix is visualized and normal in caliber. Peritoneum: No ascites or free air; no fluid collection. Mesentery and Retroperitoneum: There is an enlarged lymph node to the right of the large rectal mass measuring 1.4 cm with enlarged lymph nodes along each iliac chain also measuring 1.4 cm in short axis dimension. There is an enlarged right paracaval lymph node seen inferiorly measuring 1.3 cm in s hort axis dimension. Additional small but nonenlarged aortocaval lymph nodes are present. Abdominal Wall: There is a small right inguinal hernia containing a small amount of fluid. Pelvis: Reproductive Organs: No pelvic masses. Pelvis within normal limits. Bladder: Minimal wall thickening, this is likely related to incomplete distention. Bones: Degenerative changes are seen in the visualized thoracic as well as lumbar spine. No suspiciou s lytic or sclerotic osseous lesions are seen. IMPRESSION: 1. Large irregular rectal mass with extension into the perirectal fat especially on the left and post erolaterally on the left with adjacent perirectal inflammatory stranding and fluid. Also an enlarged right perirectal lymph node with enlarged lymph nodes along each iliac chain and adjacent to the IVC. 2. Infrarenal abdominal aortic aneurysm. 3. Difficult to characterize hypodense superior pole right renal lesion. Follow-up CT scan following renal mass protocol is recommended. 4. Additional findings as described above.
[2019-04-30] MEDS: Atenolol 25 MG TAB PO SCH (20:31)
[2019-04-30] MEDS: Amlodipine 5 MG TAB PO SCH (20:32)
[2019-04-30] MEDS: Atorvastatin Calcium 10 MG TAB PO SCH (20:32)
[2019-04-30] MEDS: Allopurinol 300 MG TAB PO SCH (20:32)
[2019-05-01] MEDS: Pantoprazole 40 MG VIAL IVP SCH ×2 (09:22→20:13)
[2019-05-01] MEDS: Sodium Chloride 0.9% 1,000 ML IV SCH ×2 (09:29→20:18)
[2019-05-01] MEDS: Valsartan 80 MG TAB PO SCH (09:31)
[2019-05-01] MEDS: Hydrochlorothiazide 25 MG TAB PO SCH (09:31)
[2019-05-01] MEDS: Famotidine 20 MG TAB PO SCH ×2 (09:31→20:13)
[2019-05-01 10:17] LABS: Hemoglobin 13.7 g/dL (14.0-18.0)
--- NOTE | 2019-05-01 10:20 | PRG ---
DATE OF SERVICE: 05/01/2019 SUBJECTIVE: Mr. Espino is resting in bed. He is feeling well. He states that he is still having a little bit of rectal bleeding on and off. OBJECTIVE: VITAL SIGNS: Temperature is 97, pulse 65, and blood pressure 150/86. ABDOMEN: Soft and nontender. There is no suprapubic tenderness. LABORATORY DATA: None except for CEA of 9.6 yesterday. ASSESSMENT: 1. Rectal bleeding, ongoing. 2. Rectal mass, seems to be infiltrating from exterior, which favor either metastatic bladder cancer or primary rectal/anal squamous cancer. There was 11 cm mass in the pelvis on CT. RECOMMENDATIONS: 1. Consult Oncology. Consult Radiation/Oncology. I have done both. 2. Monitor H and H. 3. Await pathology. 4. We will follow from a distance from a GI standpoint. Dr. Keen be on-call over the weekend if needed. I have talked directly both with Radiation/Oncology and Oncology as they can evaluate him here or at least set up followup in the outpatient if his hemoglobin remained stable. He can probably go home and see them in the outpatient setting Saturday, however his fifth pathology comes back this evening that may be helpful. 5. If the patient has recurrent bleeding, he would need to stay in the hospital until he can have definitive treatment. Job ID: [id number]
--- NOTE | 2019-05-01 11:43 | PDOC.HOSPP ---
- Subjective Encounter Date: 05/01/19 Encounter Time: 09:15 Subjective: Patient seen and examined. No new complaints. No overnight events - Objective Vital Signs & Weight: Vital Signs (12 hours) Temp Pulse Resp BP Pulse Ox 05/01/19 08:00 95 05/01/19 07:22 97.8 F 65 18 150/86 H 95 05/01/19 05:14 97.5 F L 61 18 114/63 93 L 05/01/19 00:09 98.0 F 67 19 97/59 L 92 L Weight Weight 176 lb 9.6 oz Result Diagrams: 05/01/19 10:09 04/29/19 06:41 Additional Labs: Accuchecks 05/01/19 04/30/19 04/30/19 04:07 19:02 16:44 POC Glucose 189 H 134 H 97 04/30/19 11:26 POC Glucose 114 H Hospitalist ROS - Review of Systems Eyes: denies: pain, vision change, conjunctivae inflammation, eyelid inflammation, redness, other ENT: denies: ear pain, ear discharge, nose pain, nose discharge, nose congestion , mouth pain, mouth swelling, throat pain, throat swelling, other Respiratory: denies: cough, dry, shortness of breath, hemoptysis, SOB with excertion, pleuritic pain, sputum, wheezing, other Cardiovascular: denies: chest pain, palpitations, orthopnea, paroxysmal noc. dyspnea, edema, light headedness, other Gastrointestinal: denies: nausea, vomiting, abdominal pain, diarrhea, constipation, melena, hematochezia, other Genitourinary: denies: dysuria, frequency, incontinence, hematuria, retention, other Musculoskeletal: denies: neck pain, shoulder pain, arm pain, back pain, hand pain, leg pain, foot pain, other Skin: denies: rash, lesions, jeny, bruising, other - Medication Medications: Active Medications Generic Name Dose Route Start Last Admin Trade Name Freq PRN Reason Stop Dose Admin Allopurinol 300 mg 04/28/19 21:00 04/30/19 20:32 Zyloprim PO 300 mg QPM TAMMY Administration Amlodipine Besylate 5 mg 04/28/19 21:00 04/30/19 20:32 Norvasc PO 5 mg HS TAMMY Administration Atenolol 25 mg 04/28/19 21:00 04/30/19 20:31 Tenormin PO 25 mg HS TAMMY Administration Atorvastatin Calcium 10 mg 04/28/19 21:00 04/30/19 20:32 Lipitor PO 10 mg HS TAMMY Administration Famotidine 20 mg 04/28/19 21:00 05/01/19 09:31 Pepcid PO 20 mg BID TAMMY Administration Hydrochlorothiazide 12.5 mg 04/29/19 09:00 05/01/19 09:31 Hydrochlorothiazide PO 12.5 mg DAILY TAMMY Administration Sodium Chloride 1,000 mls @ 75 mls/hr 04/28/19 13:15 05/01/19 09:29 Normal Saline 0.9% IV 1,000 mls .[id number] TAMMY Administration Pantoprazole Sodium 40 mg 04/28/19 21:00 05/01/19 09:22 Protonix IVP 40 mg Q12HR TAMMY Administration Valsartan 160 mg 04/29/19 09:00 05/01/19 09:31 Diovan PO 160 mg DAILY TAMMY Administration - Exam General Appearance: NAD, awake alert Eye: PERRL, anicteric sclera ENT: normocephalic atraumatic, no oropharyngeal lesions Neck: supple, symmetric, no JVD, no thyromegaly Heart: RRR, no murmur, no gallops, no rubs Respiratory: CTAB, no wheezes, no rales, no ronchi Gastrointestinal: soft, non-tender, non-distended, normal bowel sounds Extremities: no cyanosis, no clubbing, no edema Skin: normal turgor, no lesions, no rashes Neurological: cranial nerve grossly intact, no focal deficits Musculoskeletal: normal tone, normal strength Hosp A/P (1) Lower GI bleed Code(s): K92.2 - GASTROINTESTINAL HEMORRHAGE, UNSPECIFIED Status: Acute (2) Diabetes type 2, controlled Code(s): E11.9 - TYPE 2 DIABETES MELLITUS WITHOUT COMPLICATIONS Status: Chronic Qualifiers: Diabetes mellitus assisted insulin use: with assisted use Diabetes mellitus complication status: without complication Qualified Code(s): E11.9 - Type 2 diabetes mellitus without complications; Z79.4 - custodial (current) use of insulin (3) Gout Code(s): M10.9 - GOUT, UNSPECIFIED Status: Chronic Qualifiers: Laterality: unspecified laterality Presence of tophus: without tophus (4) HTN (hypertension) Code(s): I10 - ESSENTIAL (PRIMARY) HYPERTENSION Status: Chronic Qualifiers: Hypertension type: essential hypertension Qualified Code(s): I10 - Essential (primary) hypertension (5) Rectal mass Code(s): K62.89 - OTHER SPECIFIED DISEASES OF ANUS AND RECTUM Status: Acute - Plan old records reviewed/req, plan discussed w/ family 04/29/19 H & H mild drop, no need for blood transfusion GI consulted May need colonoscopy continue IVF, clear liquid diet medication reviewed as above symptomatic treatment 04/30/19 today colonoscopy medication reviewed as above symptomatic treatment 05/01/19 oncology and radiation oncology consulted follow up on pathology report discharge later on
--- NOTE | 2019-05-01 13:54 | DIS ---
DATE OF ADMISSION: 04/28/2019 DATE OF DISCHARGE: 05/01/2019 PRIMARY CARE PHYSICIAN: Ramsey Yuen MD DISCHARGE DISPOSITION: Home. PRIMARY DISCHARGE DIAGNOSES: 1. Rectal bleeding due to rectal mass. 2. Ascending colon polyps, status post snare polypectomy. SECONDARY DISCHARGE DIAGNOSES: 1. Diabetes type 2. 2. Gout. 3. Hypertension. PRIMARY PROCEDURE/OPERATION: The patient underwent colonoscopy and found with a 10 mm pedunculated polyp in ascending colon, which was removed with snare polypectomy and rectal mass with induration and firmness in anterior and left lateral wall of the rectum, which was biopsied. RADIOLOGICAL INVESTIGATION: CT abdomen and pelvis was done, which showed large irregular rectal mass with extension into perirectal fat especially on the left with positive lymph node, infrarenal abdominal aortic aneurysm, difficult to characterize hypodense superior pole right renal lesion and that is why the patient will need a CT renal mass protocol after discharge. SIGNIFICANT LABORATORY DATA: WBC 9.6, hemoglobin 13.7, platelets 214. INR 1.0. CEA 9.68. Sodium 138, creatinine 1.05. LFT unremarkable. Stool for guaiac positive. DISCHARGE MEDICATIONS: 1. Allopurinol 300 mg p.o. daily. 2. Caduet (amlodipine with Lipitor) 5/10 one tablet at bedtime. 3. Aspirin 81 mg daily. 4. Tenormin 25 mg at bedtime. 5. NovoLog insulin 9 units subcutaneous in the evening and Tresiba 28 units subcutaneous at bedtime. 6. Multivitamin 1 tablet p.o. daily. 7. Potassium gluconate 1 tablet daily. 8. Tramadol 50 mg q.6 hourly p.r.n. 9. Valsartan with hydrochlorothiazide 1 tablet p.o. daily. CONTRAINDICATION: None. CODE STATUS: Full code. INPATIENT CASING FINISHER AND STUFFER: Gastroenterology, Dr. Humphries and Dr. Conley was following while in hospital. TEST RESULTS PENDING ON DISCHARGE: Pathology report for rectal mass and colon polyp. DISCHARGE PLAN: Posthospital, the patient is discharged to home and subsequently, he will need followup with Oncology and Radiation Oncology as well as primary care physician and GI as instructed. HOSPITAL COURSE: An 89-year-old male, who was admitted by Asha Sousa. The patient was having lower abdominal fullness, increased frequency of stool, but without any significant results and the patient was also having hematochezia and that is why he was admitted in the hospital. The patient was evaluated by [facility], and they did colonoscopy. Colonoscopy showed ascending colon polyp, which was removed with snare polypectomy, but also found with rectal mass and he also had a surrounding perirectal fat involvement as well as positive lymph node. The patient had CT abdomen and pelvis that confirmed above finding. The patient is waiting for pathology report before discharge. We are doing Oncology consultation and Radiation Oncology consultation. After confirmed pathology report, the patient will get appropriate treatment as an outpatient basis. Plan of care discussed with the patient and the patient's son. The patient is seen and examined at bedside today. At this point, after consultation with Oncology and Radiation Oncology, we will consider discharging him home and he will follow up with them as an outpatient basis. The patient is seen and examined at bedside today. Please see my progress note from today for further detail. Job ID: [id number]
--- NOTE | 2019-05-01 16:28 | CON ---
DATE OF CONSULTATION: 05/01/2019 REASON FOR CONSULTATION: Mr. Espino is an 89-year-old gentleman, who appears to have a possible rectal cancer. I was asked to see him to discuss his treatment options. HISTORY OF PRESENT ILLNESS: Mr. Espino has a history of a superficial bladder cancer. He apparently has been on maintenance intravesicular BCG. This last treatment was done several weeks ago by Dr. Dickson. Shortly after that last treatment, he began experiencing some rectal bleeding. He was having at least 4 to 5 bowel movements per day, and the bleeding was fairly significant. He subsequently came to the emergency room, where he was admitted for workup and evaluation. He did undergo a CT scan of the abdomen and pelvis. This showed an approximate 11.4 cm rectal mass that appeared to extend into the adjacent perirectal fat with perirectal inflammatory changes. Colonic diverticulosis was present. There was an enlarged lymph node to the right of the rectal mass as well as enlarged lymph nodes along each iliac chain measuring about 1.4 cm. There was a right common iliac lymph node measuring 1.3 cm. He did undergo a colonoscopy by Dr. Conley. This showed a contracted rectum for a distance of about 10 cm with induration of the rectal wall. Biopsies were obtained, which are currently pending. He has several polyps removed as well. The biopsy is currently pending. I have been asked to see him by Dr. Conley to discuss his treatment options. Presently, he reports that the bleeding has been less during the last 2 days, especially today. He has not had a bowel movement today. He denies any pain in the pelvis or any other areas of pain. He has no shortness of breath and denies any weight loss. He voices no other complaints. PAST MEDICAL HISTORY: 1. Hypertension. 2. Diabetes. 3. Hypercholesterolemia. 4. History of superficial bladder cancer with recurrence in the past 20 years, which have been treated with TURBT and BCG. He denies ever having had chemotherapy or radiation. 5. Status post pacemaker placement. 6. Status post cholecystectomy. 7. Status post ORIF of the left ankle from traumatic fracture. MEDICATIONS: 1. . 2. Tenormin. 3. Lipitor. 4. Pepcid. 5. Hydrochlorothiazide. 6. Protonix. 7. Senokot S. 8. Ultram. 9. Diovan. ALLERGIES: NO KNOWN MEDICAL ALLERGIES. SOCIAL HISTORY: He lives in [place], [place], very close to the hospital. He has no tobacco or alcohol use. He is retired. FAMILY HISTORY: His mother at age 85 from a perforated colon. His father at age 80 from a malignant brain tumor. There is no other family history of malignancy. REVIEW OF SYSTEMS: A 12-system review of systems is otherwise negative. PHYSICAL EXAMINATION: VITAL SIGNS: Height 61 inches. Weight 176 pounds. Blood pressure is 138/65, pulse is 61, respirations are 26, temperature is 98.2, and O2 saturation is 97% on room air. CONSTITUTIONAL: He is alert and oriented and in no apparent distress. He is well developed and well nourished. Karnofsky performance status is a 90%. HEENT: Eyes; pupils are equal, round, and reactive to light. Extraocular movements are intact. ENT, oral cavity and oropharynx normal without lesion or erythema. Palate elevates symmetrically. Gingiva is intact. NECK: Supple without preauricular, submandibular, cervical, or supraclavicular adenopathy. No thyromegaly. Larynx is midline. LUNGS: Breathing nonlabored. Clear to auscultation and percussion. CARDIOVASCULAR: Regular rate and rhythm with a 3/6 systolic murmur. No lower extremity edema. BACK: No tenderness on fist percussion of the spine. LYMPHATIC: No axillary or inguinal adenopathy. ABDOMEN: Bowel sounds present. Soft, nontender, nondistended without mass or hepatosplenomegaly. Liver percusses normal size. RECTAL: Deferred. SKIN: Without rash or purpura. NEUROLOGIC: Cranial nerves 2 through 12 are grossly intact. Motor strength is 5/5 in both upper and lower extremities in all muscle groups tested. Gait was not tested. LABORATORY DATA: Pathology is currently pending. CBC on 04/29/2019 revealed a white blood cell count of 9600 with a hemoglobin of 13.6, hematocrit of 40.1, and platelet count of 214,000. Hemoglobin today was 13.7. Chemistry group showed normal electrolytes on admission with a glucose of 119. Total bilirubin was 1.3. Alkaline phosphatase was 127. CEA was elevated at 9.68. RADIOLOGIC DATA: CT scan of the abdomen and pelvis on 04/30/2019 was personally reviewed. Again, he appears to have an 11.6 cm rectal mass with extension into the adjacent perirectal fat. This mass does not appear to be arising off the bladder. He does have colonic diverticulosis. He has a lymph node adjacent to the rectal mass measuring 1.4 cm. He also has a right external iliac and left external iliac lymph node measuring 1.4 cm. There is a right common iliac lymph node measuring 1.3 cm. No definite evidence of metastatic disease. He incidentally had a 3.9 cm abdominal aortic aneurysm. ASSESSMENT: Mr. Espino is an 89-year-old gentleman, who has been diagnosed with a rectal mass that is suspicious for malignancy. Whether this is a primary rectal cancer or not is unknown at this time as the biopsy is currently pending. There is some concern because the mass did not appear to be arising from the mucosa, but rather appeared to be more extrinsic and infiltrating into the rectum. By CT scan, it does look to be a primary rectal mass. It does not appear to be arising off the bladder. PLAN: I had a long discussion with Mr. Espino and his family regarding his diagnosis, prognosis, prognostic factors, and treatment options. We discussed significance of the CT findings. We discussed the concern for this being a rectal cancer. I did explain to them that we will need to await the biopsy report before determining how best to proceed. If the biopsy confirms malignancy, then we would proceed with the appropriate treatment for the malignancy. If the biopsy was to show some other cause for the rectal mass, then of course it would be treated appropriately according to the cause. The enlarged lymph nodes could be from the rectal mass and could represent metastatic disease to the lymph nodes or alternatively there can be some enlargement of the lymph nodes because of his recent treatment with BCG. If the biopsy confirms rectal cancer, then I think likely we are going to obtain a PET scan as an outpatient to help stage his disease before making a final treatment decision. I did discuss with them that if this is rectal cancer, the typical treatment is usually concurrent chemotherapy and radiation followed by surgical resection. If this was to show some other unusual histology such as lymphoma or something of that nature, then the treatment might be entirely different. I did briefly discuss with them that radiation is typically a daily treatment and may go over a number of weeks depending on what type of cancer it was to be. So, we will await the biopsy results before making a final determination on how best to proceed and how best to complete his staging. He does not from my perspective had to stay in the hospital until the biopsy results are known. His hemoglobin seems to be fairly stable. We can certainly follow him up as an outpatient next week once the biopsy results are obtained to make a final decision about his treatment. Time was taken to answer all of their questions regarding the present situation regarding our present knowledge of his situation. They are agreeable to follow up as an outpatient. These arrangements will be made after discharge. Thank you for this interesting consultation. Job ID: [id number]
[2019-05-01] MEDS: Allopurinol 300 MG TAB PO SCH (20:12)
[2019-05-01] MEDS: Atorvastatin Calcium 10 MG TAB PO SCH (20:13)
[2019-05-01] MEDS: Amlodipine 5 MG TAB PO SCH (20:13)
[2019-05-01] MEDS: Atenolol 25 MG TAB PO SCH (20:14)
[2019-05-02] MEDS: Valsartan 80 MG TAB PO SCH (07:59)
[2019-05-02] MEDS: Famotidine 20 MG TAB PO SCH (07:59)
[2019-05-02] MEDS: Hydrochlorothiazide 25 MG TAB PO SCH (07:59)
[2019-05-02] MEDS: Pantoprazole 40 MG VIAL IVP SCH (07:59)
--- NOTE | 2019-05-02 10:05 | PDOC.HOSPP ---
- Subjective Encounter Date: 05/02/19 Encounter Time: 08:45 Subjective: Patient seen and examined. No new complaints. No overnight events - Objective Vital Signs & Weight: Vital Signs (12 hours) Temp Pulse Resp BP Pulse Ox 05/02/19 07:37 96 05/02/19 07:20 97.7 F 60 18 119/56 L 96 Weight Weight 176 lb 9.6 oz I&O: 05/01/19 05/02/19 05/03/19 06:59 06:59 06:59 Intake Total 1140 Balance 1140 Result Diagrams: 05/01/19 10:09 04/29/19 06:41 Additional Labs: Accuchecks 05/02/19 05/01/19 05/01/19 04:37 19:36 18:11 POC Glucose 136 H 181 H 156 H 05/01/19 11:47 POC Glucose 155 H Hospitalist ROS - Review of Systems Eyes: denies: pain, vision change, conjunctivae inflammation, eyelid inflammation, redness, other ENT: denies: ear pain, ear discharge, nose pain, nose discharge, nose congestion , mouth pain, mouth swelling, throat pain, throat swelling, other Respiratory: denies: cough, dry, shortness of breath, hemoptysis, SOB with excertion, pleuritic pain, sputum, wheezing, other Cardiovascular: denies: chest pain, palpitations, orthopnea, paroxysmal noc. dyspnea, edema, light headedness, other Gastrointestinal: denies: nausea, vomiting, abdominal pain, diarrhea, constipation, melena, hematochezia, other Genitourinary: denies: dysuria, frequency, incontinence, hematuria, retention, other Musculoskeletal: denies: neck pain, shoulder pain, arm pain, back pain, hand pain, leg pain, foot pain, other Skin: denies: rash, lesions, jeny, bruising, other - Medication Medications: Active Medications Generic Name Dose Route Start Last Admin Trade Name Freq PRN Reason Stop Dose Admin Allopurinol 300 mg 04/28/19 21:00 05/01/19 20:12 Zyloprim PO 300 mg QPM TAMMY Administration Amlodipine Besylate 5 mg 04/28/19 21:00 05/01/19 20:13 Norvasc PO 5 mg HS TAMMY Administration Atenolol 25 mg 04/28/19 21:00 05/01/19 20:14 Tenormin PO Not Given HS TAMMY Atorvastatin Calcium 10 mg 04/28/19 21:00 05/01/19 20:13 Lipitor PO 10 mg HS TAMMY Administration Famotidine 20 mg 04/28/19 21:00 05/02/19 07:59 Pepcid PO 20 mg BID TAMMY Administration Hydrochlorothiazide 12.5 mg 04/29/19 09:00 05/02/19 07:59 Hydrochlorothiazide PO 12.5 mg DAILY TAMMY Administration Sodium Chloride 1,000 mls @ 75 mls/hr 04/28/19 13:15 05/01/19 20:18 Normal Saline 0.9% IV 1,000 mls .[id number] TAMMY Administration Insulin Human Lispro 0 units 04/28/19 18:32 05/01/19 18:36 Humalog SC 2 unit .MILD SLIDING SCALE PRN Administration Mild Correctional Scale Pantoprazole Sodium 40 mg 04/28/19 21:00 05/02/19 07:59 Protonix IVP 40 mg Q12HR TAMMY Administration Valsartan 160 mg 04/29/19 09:00 05/02/19 07:59 Diovan PO 160 mg DAILY TAMMY Administration - Exam General Appearance: NAD, awake alert Eye: PERRL, anicteric sclera ENT: normocephalic atraumatic, no oropharyngeal lesions Neck: supple, symmetric, no JVD, no thyromegaly Heart: RRR, no murmur, no gallops, no rubs, normal peripheral pulses Respiratory: CTAB, no wheezes, no rales, no ronchi Gastrointestinal: soft, non-tender, non-distended, normal bowel sounds Extremities: no cyanosis, no clubbing, no edema Skin: normal turgor, no lesions, no rashes Neurological: cranial nerve grossly intact, no focal deficits Musculoskeletal: normal tone, normal strength Psychiatric: normal affect, normal behavior, A&O x 3 Hosp A/P (1) Lower GI bleed Code(s): K92.2 - GASTROINTESTINAL HEMORRHAGE, UNSPECIFIED Status: Acute (2) Diabetes type 2, controlled Code(s): E11.9 - TYPE 2 DIABETES MELLITUS WITHOUT COMPLICATIONS Status: Chronic Qualifiers: Diabetes mellitus boom operator insulin use: with usp use Diabetes mellitus complication status: without complication Qualified Code(s): E11.9 - Type 2 diabetes mellitus without complications; Z79.4 - family services assistant (current) use of insulin (3) Gout Code(s): M10.9 - GOUT, UNSPECIFIED Status: Chronic Qualifiers: Laterality: unspecified laterality Presence of tophus: without tophus (4) HTN (hypertension) Code(s): I10 - ESSENTIAL (PRIMARY) HYPERTENSION Status: Chronic Qualifiers: Hypertension type: essential hypertension Qualified Code(s): I10 - Essential (primary) hypertension (5) Rectal mass Code(s): K62.89 - OTHER SPECIFIED DISEASES OF ANUS AND RECTUM Status: Acute - Plan old records reviewed/req 04/29/19 H & H mild drop, no need for blood transfusion GI consulted May need colonoscopy continue IVF, clear liquid diet medication reviewed as above symptomatic treatment 04/30/19 today colonoscopy medication reviewed as above symptomatic treatment 05/01/19 oncology and radiation oncology consulted follow up on pathology report discharge later on 05/02/19 medication reviewed as above symptomatic treatment see my discharge summery will discharge today
[2019-05-02 10:18] VITALS: BP 147/74; TEMP 97.6
--- NOTE | 2019-05-04 07:41 | DIS ---
DATE OF ADMISSION: 04/28/2019 DATE OF DISCHARGE: 05/02/2019 ADDENDUM: Please see my discharge summary dictated yesterday for more detail. After my discharge summary dictated, Dr. Maximilian Dumont saw this patient and he recommended outpatient radiation therapy. We have also received pathology report from rectal biopsy and that is consistent with squamous cell carcinoma well differentiated and polyp pathology is consistent with tubular adenoma. Rest of my discharge summary has not changed. The patient will continue all his previous medication as per discharge summary and he has already appointment with Oncology after discharge. Job ID: [id number]
--- NOTE | 2019-05-04 09:10 | CON ---
DATE OF CONSULTATION: REASON FOR CONSULT: Rectal mass. HISTORY OF PRESENT ILLNESS: Mr. Espino is a pleasant 89-year-old gentleman, who presented to the emergency room with hematochezia x1 week. He had intermittent episodes of rectal bleeding over the last several days. His hemoglobin was normal at 14.4, but his occult blood was positive. He was admitted for further workup. GI was consulted. He underwent a colonoscopy. There was a rectal mass with induration in the anterolateral wall of the rectum. Biopsies were taken. He then underwent a CT scan confirming the 11 cm mass. The patient has a history of bladder cancer being treated by Dr. Dickson. He had a treatment approximately 2 weeks ago. The patient states his bleeding has significantly decreased. He has no complaints of pain. PAST MEDICAL HISTORY: 1. Bladder cancer. 2. Hypertension. 3. Diabetes. 4. Hyperlipidemia. PAST SURGICAL HISTORY: 1. Pacemaker placement. 2. Cholecystectomy. ALLERGIES: NO KNOWN DRUG ALLERGIES. HOME MEDICATIONS: 1. Insulin. 2. Tenormin. 3. Allopurinol. 4. Valsartan/hydrochlorothiazide. 5. Aspirin. 6. Caduet. 7. Tramadol. FAMILY HISTORY: No history of GI malignancies. SOCIAL HISTORY: , [place] with his . No alcohol, tobacco, or illicit drug use. REVIEW OF SYSTEMS: A 10-point review of systems is negative except for noted in HPI. PHYSICAL EXAMINATION: VITAL SIGNS: Temperature is 98.2, pulse is 61, respiratory rate 18, blood pressure is 138/65, he is 97% on room air. GENERAL: This is a well-developed, well-nourished male, who appears younger than his stated age, in no acute distress. HEENT: Normocephalic, atraumatic. Pupils are equal and reactive to light. NECK: Supple. CARDIOVASCULAR: Regular rate and rhythm. He has a 3/6 murmur. LUNGS: Clear to anterior. ABDOMEN: Soft and nontender. Bowel sounds are positive. EXTREMITIES: No clubbing or cyanosis or edema. SKIN: No rash. HEMATOLOGICAL: There is no petechiae or purpura. NEUROLOGIC: Nonfocal. PSYCHIATRIC: He is alert, oriented, and appropriate. PERTINENT LABORATORY DATA AND X-RAYS: Current WBCs 9.6, hemoglobin 13.7, hematocrit 40.5, platelet count is 214,000, 67% neutrophils, 21% lymphocytes. PT 13.5, INR is 1.0, PTT 33.5. Sodium is 138, potassium 3.9, chloride 103, CO2 is 25, BUN is 20, creatinine 1.05, calcium 9.1, iron 263, TIBC is 223, iron saturation is 28, ferritin is 206, bilirubin is 1.3, AST is 13, ALT is 9, alkaline phosphatase is 127, serum total protein 6.4, albumin 3.6, globulin 2.8. CEA is 9.68. Radiology per HPI. ASSESSMENT: 1. Rectal mass consistent with malignancy. 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 DISCUSSION: The patient's pathology is currently pending. His bleeding is very minimal. He will likely be discharged within the next 24 hours. He will follow up in our clinic on May 11 to discuss treatment options. He has been seen by Dr. Dumont of Radiation Oncology, most likely have radiation with chemotherapy either Xeloda oral medication or infusional 5-FU. This was discussed briefly with the patient, who will see us in the outpatient setting. The patient has had biopsy of his rectal mass. He will have . Job ID: [id number]
== END 2019-05-02 10:15 | disposition home or self-care (01) | DRG 375 ==
LOC: ERS 07:18 → ERHOLD 09:44 → T4-B 13:27
PROVIDERS: ADMIT Internal Medicine; ATTEND Internal Medicine
PROC: 0DBH8ZZ Excision of Cecum, Via Natural or Artificial Opening Endoscopic (ICD-10-PCS; principal; 2019-04-30)
PROC: 0DBP8ZX Excision of Rectum, Via Natural or Artificial Opening Endoscopic, Diagnostic (ICD-10-PCS; 2019-04-30)
DX: C20 Malignant neoplasm of rectum (principal); K92.1 Melena; I10 Essential (primary) hypertension; E11.9 Type 2 diabetes mellitus without complications; M10.9 Gout, unspecified; E78.5 Hyperlipidemia, unspecified; C67.9 Malignant neoplasm of bladder, unspecified; D12.0 Benign neoplasm of cecum; Z95.0 Presence of cardiac pacemaker; Z90.49 Acquired absence of other specified parts of digestive tract
CPT/HCPCS: 36415; 36416; 74177; 80053; 82274; 82378; 82728; 83540; 83550; 85014; 85018; 85025; 85610; 85730; 86850; 86900; 86901; 88305; 99284; C9113; Q9966

== ENCOUNTER 2019-05-14 13:00 | Outpatient (CLI) | payer MEDICARE, BC ==
--- NOTE | 2019-05-14 16:17 | PET ---
Nuclear medicine FDG PET/CT: (Positron emission tomography and computed tomography) DATE: 05/14/2019 HISTORY: 89-year-old male with anal cancer ICD-10: C 21.1 Initial staging COMPARISON: none TECHNIQUE: IV injection of F-18 fluorodeoxyglucose (FDG) dose: 10.3 mCi. PET scan and attenuation correction CT performed from skull base to proximal thighs. FINDINGS: SUV (standard uptake values) numbers given are maximum SUVs. QCLR used. Approximately 1 cm right para-aortic retroperitoneal lymph node at L3-4 level, SUV 10.8. At L4-5 level, right common iliac enlarged lymph node, SUV 16.0.. Distal to that, right proximal external iliac chain lymph node, SUV 5.7. More inferiorly and more distally, 2 right external iliac chain lymph nodes clustered. The larger one SUV 11.1. On same axial image slice, right internal iliac chain lymph node SUV 5.1. More posteriorly, right obturator internus internal iliac chain lymph node SUV 3.8. Left proximal external iliac chain lymph node SUV 10.3. Large confluent region of high uptake contiguously involving much of the rectum and anus, with SUV 14 .7. 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 No evidence of hepatic metastasis, intrathoracic metastasis, or neck metastasis. IMPRESSION: 1. Large confluent malignant neoplastic tumor involving rectum and anus. 2. Metastatic iliac chain lymphadenopathy, numerous on the right, and one on the left. 3. A small, slightly enlarged right para-aortic retroperitoneal metastatic lymph node.
== END 2019-05-14 13:01 | disposition home or self-care (01) ==
LOC: PET 13:00
PROVIDERS: ATTEND Radiology Radiation Oncology
DX: C21.1 Malignant neoplasm of anal canal (principal); R59.0 Localized enlarged lymph nodes
CPT/HCPCS: 78815; A9552

== ENCOUNTER 2019-10-07 13:46 | Inpatient (IN) | payer MEDICARE, BC ==
[~2019-10-07 13:46] MED LIST: Heparin 1,000 UNITS/ML VIAL ONE; Iopamidol 370 76% 50 ML VIAL FS ONE
[2019-10-07 14:16] LABS: #Lymphocytes 1.4 thou/uL (1.20-3.40); #Monocytes 1.4 thou/uL (0.11-0.59); #Neutrophils 8.4 thou/uL (1.40-6.50); %Basophils 0.2 % (0.0-1.0); %Eosinophils 0.2 % (0.0-10.0); %Lymphocytes 12.2 % (21.0-51.0); %Monocytes 12.1 % (0.0-10.0); %Neutrophils 75.4 % (42.0-75.0); Mean Corpuscular HGB CONC 33.3 g/dL (32.0-36.0); Mean Corpuscular Hemoglobin 30.4 pg (27.0-31.0); Mean Corpuscular Volume 91.2 fL (78.0-98.0); Mean Platelet Volume 7.3 fL (7.4-10.4); Platelet Count 218 thou/uL (130-400); RBC Distribution Width 14.9 % (11.5-14.5); Red Blood Cell (RBC) Count 4.28 mill/uL (4.70-6.10); White Blood Cell (WBC) Count 11.2 thou/uL (4.8-10.8)
[2019-10-07 14:44] LABS: ALT (SGPT) 7 U/L (8-55); AST (SGOT) 9 U/L (5-34); Albumin 3.3 g/dL (3.4-4.8); Alkaline Phosphatase 88 U/L (40-110); Anion Gap 10 mmol/L (10-20); BUN (Urea Nitrogen) 36 mg/dL (8.4-25.7); Bilirubin, Total 0.3 mg/dL (0.2-1.2); Calc. Creatinine Clearance 0 mL/min (70-130); Calcium 9.4 mg/dL (7.8-10.44); Carbon Dioxide 30 mmol/L (23-31); Chloride 103 mmol/L (98-107); Estimated GFR-MDRD 48; Globulin 2.4 g/dL (2.4-3.5); Glucose 193 mg/dL (83-110); Lipase 4 U/L (8-78); Potassium 3.4 mmol/L (3.5-5.1); Protein, Total 5.7 g/dL (5.8-8.1); Sodium 140 mmol/L (136-145)
--- NOTE | 2019-10-07 15:52 | CT ---
CT OF THE BRAIN WITHOUT CONTRAST: 10/07/19 COMPARISON: 08/27/19 HISTORY: Change in mental status. History of colon cancer. TECHNIQUE: Multiple contiguous axial images were obtained in a CT of the brain without contrast. FINDINGS: Cerebral atrophy is seen. There is scattered hypodensities in the subcortical and periventricular whi te matter, likely secondary to small vessel ischemic disease. No large confluent infarction is seen. There is no evidence of hydrocephalus, intracranial hemorrhage or extra-axial fluid collection. The calvarium and overlying soft tissues are unremarkable. The visualized paranasal sinuses and masto id air cells are well aerated. IMPRESSION: No evidence of acute intracranial abnormality. POS: EAA
--- NOTE | 2019-10-07 16:03 | CT ---
CT OF THE ABDOMEN AND PELVIS WITH CONTRAST: 10/07/19 HISTORY: Altered mental status and abdominal pain. COMPARISON: 04/30/19 TECHNIQUE: Multiple contiguous axial images were obtained in a CT of the abdomen and pelvis with contrast. Sagit nazario and coronal reformats were performed. FINDINGS: The patient is status post cholecystectomy. Scattered calcified granulomas are seen in the spleen. Th ere are hypodensities in the bilateral kidneys which are stable in size and likely represent cysts. T he adrenal glands and pancreas are unremarkable. Mild intrahepatic biliary dilatation is likely a res ervoir effect from prior cholecystectomy. Moderate stool is seen throughout the colon. There is circumferential thickening of the wall of the r ectum. This has significantly improved compared to the prior examination. There are distended loops of small bowel measuring up to 4.3 cm in greatest dimension. No obvious decompression of the distal s mall bowel loops is seen. There is a normal appendix. There are a few scattered diverticula in the co yvrose. There is a stable ectasia of the infrarenal aorta which measures 3.9 cm in greatest dimension. Athero sclerotic calcifications are seen in the aorta. No abdominal or pelvic lymphadenopathy are seen. The patient has a small right inguinal hernia containing a small amount of fluid. No free air or free fluid are seen in the abdomen or pelvis. Degenerative changes are seen in the spine. The visualized inferior thorax is unremarkable. IMPRESSION: 1. There is a large amount of stool retention throughout the colon. This likely causes partial s mall bowel obstruction secondary to incomplete emptying of the small bowel. There may be narrowing of the rectum as a cause for the significant stool retention in the colon. Correlate with physical exam ination. The patient has a history of colonic malignancy in the rectal region. 2. Diverticulosis. 3. Bilateral renal cysts. 4. Ectasia of the infrarenal aorta. POS: EAA
[2019-10-07] MEDS ORDERED: Ondansetron PF 4 MG/2 ML Vial ONE (16:23)
[2019-10-07 17:00] LABS: Bilirubin Negative (Negative); Blood, Urine Trace (Negative); Clarity Clear (Clear); Glucose, Urine (Dipstick) Normal (Negative); Leukocyte Negative Leu/uL (Negative); Nitrite Negative (Negative); Protein, Urine (Dipstick) 30 mg/dL (Neg-Trace); Squamous Epithelial None Seen HPF (0-3)
[2019-10-07 17:10] LABS: Bacteria/HPF 2+ HPF (None Seen)
[2019-10-07] MEDS ORDERED: Dextrose 5% in Water 1,000 ML IV PRN (17:29)
[2019-10-07] MEDS ORDERED: Ondansetron PF 4 MG/2 ML Vial IVP PRN (17:29)
[2019-10-07] MEDS ORDERED: Acetaminophen 650 MG Suppository PR PRN (17:29)
[2019-10-07] MEDS ORDERED: HumaLOG 300 UNITS/3 ML VIAL SC PRN (17:29)
[2019-10-07] MEDS ORDERED: Zolpidem Tartrate 5 MG TAB PO PRN (17:29)
[2019-10-07] MEDS ORDERED: Dextrose 50% Abboject 50 ML SYRINGE SLOW IVP PRN (17:29)
--- NOTE | 2019-10-07 18:17 | HP ---
PRIMARY CARE PROVIDER: Dr. Yuen. ONCOLOGIST: Dr. Gonzalez. HISTORY OF PRESENT ILLNESS: The patient with a history of colon cancer, diagnosed in April of the last year. He has had chemotherapy, radiation therapy, but no surgery. Two weeks ago, he has had some nausea and vomiting, became anorectic with minimal fluids, solids. His weight is down 35 pounds with the present illness. Nausea and vomiting resolved. For about 4 to 5 days, he did take in some fluids and calories. Then for the past 12+ hours, he has had nausea and vomiting, he has had a distended abdomen. He has been vomiting up a brown liquid. He has had some BM. He has had diarrhea with his chemotherapy and has been receiving antidiarrheals. PAST MEDICAL HISTORY: Pertinent for diabetes mellitus, type 2; hypertension; arrhythmia, post pacemaker; dyslipidemia; bladder cancer. PAST SURGICAL HISTORY: Bladder cancer surgery x2, left leg surgery, pacemaker placement, cholecystectomy. CURRENT MEDICATIONS: 1. Flomax 0.4 mg a day. 2. [id number] Imodium. 3. He is off his antihypertensives and diabetes medicines. FAMILY HISTORY: No history of GI carcinoma. SOCIAL HISTORY: No tobacco. No alcohol. DNR code status, per his power of general utility maintenance repairer, his daughter, Mckenna, whom I have spoken with. ALLERGIES: NO KNOWN DRUG ALLERGIES. REVIEW OF SYSTEMS: Unobtainable. The patient is oriented to name only. PHYSICAL EXAMINATION: GENERAL: Chronic ill-appearing man, in no distress. VITAL SIGNS: Blood pressure 106/67, pulse 89, respirations 16, temperature 97.6. HEENT: Examination of his head, eyes, ears, nose, and throat reveals pupils are equal and round. Extraocular movements are intact. Sclerae are white. Tympanic membranes are clear. Nose is clear. Oral mucous membranes are very dry. NECK: No jugular venous distention, adenopathy, or thyromegaly. CHEST: Clear to auscultation and percussion. HEART: Had a regular rate and rhythm. First and second heart sounds are masked by 3/6 systolic murmur. ABDOMEN: Distended, tympanitic with increased bowel sounds. No bruits were heard. There is no palpable mass. There are no peritoneal findings. EXTREMITIES: No cyanosis, clubbing, or edema. PULSES: Carotid, radial, femoral, and dorsalis pedis pulses are intact. HEME/LYMPH: No tender or swollen lymph nodes in the axilla, inguinal, or cervical area. NEUROLOGIC: Cranial nerves 2 through 12 are intact. Deep tendon reflexes symmetric. Moves all extremities. IMAGING STUDIES: CT of his abdomen reveals evidence of a bowel obstruction with constipation as the findings, the induration in his rectal area is considered improved. Brain CT was done, which revealed no brain abnormality. Both were reviewed by me. EKG is pending. LABORATORY DATA: Hemoglobin 13.0, white count 11.2, platelet count 218,000. Creatinine 1.39, BUN 36, sodium 140, potassium 3.4. Lactic acid 2.3, followup 2.0. Blood sugar 193. Liver function test unremarkable. ADMITTING DIAGNOSES: 1. Bowel obstruction. 2. Colon cancer, post radiotherapy and chemotherapy. 3. Acute renal failure. 4. Leukocytosis. 5. Decreased mental status. PLAN: 1. Three-view abdomen to better evaluate the bowel obstruction and to get a chest x-ray. 2. Blood and urine cultures will be obtained. IV fluids will be given. CBC, basic metabolic profile will be repeated in the morning. I have had a discussion with the family, with power of general utility maintenance repairer, Mckenna, who confirms he is DNAR. We will attempt a Fleet Enema tonight, review in the morning. Job ID: [id number]
--- NOTE | 2019-10-07 18:41 | RAD ---
TWO VIEWS OF THE ABDOMEN AND UPRIGHT VIEW OF THE CHEST: 10/07/19 HISTORY: Abdominal pain with nausea and vomiting. Small bowel obstruction. COMPARISON: CT abdomen/pelvis 10/07/19. FINDINGS: Supine and decubitus views of the abdomen and upright view of the chest shows multiple air filled loo ps of small bowel. This is consistent with the findings on CT. No free air is seen on the decubitus f ilm. Multiple air fluid levels are seen consistent with a complete or partial small bowel obstruction . The heart is normal in size. There is a pacemaker with its leads in the right atrium and ventricle. IMPRESSION: Distended loops of small bowel are secondary to small bowel obstruction. POS: C
[2019-10-07] MEDS: cefTRIAXone\\ROCEPHIN 1 GM in Sodium Chloride 0.9% 100 ML IVPB SCH (19:00)
[2019-10-07] MEDS: Sodium Chloride 0.9% 1,000 ML IV SCH (19:01)
[2019-10-08] MEDS: Sodium Chloride 0.9% 1,000 ML IV SCH ×4 (03:20→20:41)
[2019-10-08 05:33] LABS: #Lymphocytes 1.2 thou/uL (1.20-3.40); #Monocytes 1.1 thou/uL (0.11-0.59); #Neutrophils 6.4 thou/uL (1.40-6.50); %Eosinophils 0.6 % (0.0-10.0); %Lymphocytes 14.1 % (21.0-51.0); %Monocytes 12.2 % (0.0-10.0); %Neutrophils 73.2 % (42.0-75.0); Hemoglobin 11.6 g/dL (14.0-18.0); Mean Corpuscular HGB CONC 33.4 g/dL (32.0-36.0); Mean Corpuscular Hemoglobin 31.1 pg (27.0-31.0); Mean Corpuscular Volume 93.2 fL (78.0-98.0); Mean Platelet Volume 7.5 fL (7.4-10.4); Platelet Count 192 thou/uL (130-400); Red Blood Cell (RBC) Count 3.73 mill/uL (4.70-6.10); White Blood Cell (WBC) Count 8.7 thou/uL (4.8-10.8)
[2019-10-08 05:57] LABS: Anion Gap 12 mmol/L (10-20); BUN (Urea Nitrogen) 37 mg/dL (8.4-25.7); Calc. Creatinine Clearance 41 mL/min (70-130); Calcium 8.6 mg/dL (7.8-10.44); Carbon Dioxide 23 mmol/L (23-31); Chloride 108 mmol/L (98-107); Estimated GFR-MDRD 55; Glucose 146 mg/dL (83-110); Potassium 3.7 mmol/L (3.5-5.1); Sodium 139 mmol/L (136-145)
--- NOTE | 2019-10-08 10:26 | PDOC.HOSPP ---
- Subjective Encounter Date: 10/08/19 Encounter Time: 10:21 Subjective: awake, oriented to person - Objective Vital Signs & Weight: Vital Signs (12 hours) Temp Pulse Resp BP Pulse Ox 10/08/19 07:18 97.4 F L 71 18 116/66 95 10/08/19 04:56 97.5 F L 77 18 105/60 94 L 10/08/19 00:53 98 F 82 18 125/64 92 L Weight Weight 152 lb 1.903 oz Result Diagrams: 10/08/19 04:56 10/08/19 04:56 Additional Labs: Accuchecks 10/08/19 10/07/19 05:00 21:14 POC Glucose 158 H 169 H Radiology Reviewed by me: Yes (cxr- SBO) Hospitalist ROS - Medication Medications: Active Medications Generic Name Dose Route Start Last Admin Trade Name Freq PRN Reason Stop Dose Admin Ceftriaxone Sodium 1 gm/ 100 mls @ 200 mls/hr 10/07/19 18:00 10/07/19 19:00 Sodium Chloride IVPB 100 mls Q24HR TAMMY Administration Sodium Chloride 1,000 mls @ 150 mls/hr 10/07/19 17:30 10/08/19 03:20 Normal Saline 0.9% IV 1,000 mls .[id number] TAMMY Administration Sodium Chloride 10 ml 10/07/19 21:00 10/07/19 21:24 Flush - Normal Saline IVF 10 ml Q12HR TAMMY Administration - Exam General Appearance: awake alert Neck: no JVD Heart: RRR, no murmur Respiratory: CTAB Gastrointestinal: no guarding, no rigidity, distended Gastrointestinal - other findings: hyperactive BS Extremities: no edema Hosp A/P (1) SBO (small bowel obstruction) Code(s): K56.609 - UNSP INTESTNL OBST, UNSP TO PARTIAL VERSUS COMPLETE OBST Status: Acute (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, UNSPECIFIED Status: Chronic (3) Acute kidney injury Code(s): N17.9 - ACUTE KIDNEY FAILURE, UNSPECIFIED Status: Acute (4) Diabetes mellitus Code(s): E11.9 - TYPE 2 DIABETES MELLITUS WITHOUT COMPLICATIONS Status: Chronic Qualifiers: Diabetes mellitus type: type 2 Diabetes mellitus intermediate insulin use: with document preparation specialist use Diabetes mellitus complication status: with kidney complications Diabetes mellitus complication detail: with chronic kidney disease Chronic kidney disease stage: stage 3 (moderate) Qualified Code(s): E11.22 - Type 2 diabetes mellitus with diabetic chronic kidney disease; N18.3 - Chronic kidney disease, stage 3 (moderate); Z79.4 - detention (current) use of insulin (5) HTN (hypertension) Code(s): I10 - ESSENTIAL (PRIMARY) HYPERTENSION Status: Chronic Qualifiers: Hypertension type: essential hypertension Qualified Code(s): I10 - Essential (primary) hypertension - Plan NGT to suction. enemas cont accu/ss cont iv fluids renal fcn improved with fluids Cultures neg to date- cont rocephin discussed with oncology
--- NOTE | 2019-10-08 12:20 | CON ---
DATE OF CONSULTATION: REASON FOR CONSULTATION: Anal cancer. HISTORY OF PRESENT ILLNESS: Mr. 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 He struggled with both diarrhea and constipation during treatment and was taking Imodium and milk of magnesia. He was last seen in July by Dr. Gonzalez. Apparently over the last week, he began to have some nausea and vomiting with increased weight loss. He had some abdominal distention and was brought to the ER for evaluation. He underwent an abdominal and pelvis CT, which showed circumferential thickening of the wall of the rectum significantly improved from the prior exam in April. He had distended loops of small bowel. There was a large amount of stool retention , possibly causing a small bowel obstruction. The patient was confused so a brain CT was performed that showed no evidence of acute intracranial abnormality. He was admitted for treatment, started on IV fluids. Last night, he had one episode of a small amount of diarrhea. He was seen at bedside. He denies any significant complaints. He is oriented to person only. He is on IV fluids. He has distention of his abdomen with only mild tenderness to palpation. PAST MEDICAL HISTORY: 1. 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 2. History of bladder cancer. 3. Diabetes mellitus, type 2. 4. Hypertension. 5. Hyperlipidemia. 6. Atrial fibrillation. PAST SURGICAL HISTORY: 1. Pacemaker placement. 2. Cholecystectomy. 3. Ankle surgery. ALLERGIES: NO KNOWN DRUG ALLERGIES. HOME MEDICATIONS: Imodium, Megace, Milk of magnesia, Flomax, and tramadol. FAMILY HISTORY: His father had brain cancer. SOCIAL HISTORY: and has 3 children. Lives with his spouse. No alcohol , tobacco, or illicit drug use. REVIEW OF SYSTEMS: Ten-point review of systems is negative except for noted in HPI. PHYSICAL EXAMINATION: VITAL SIGNS: Temperature 97.4, pulse is 71, respiratory rate 18, blood pressure is 116/66. He is 95% on room air. GENERAL: Thin male, in no acute distress. HEENT: Normocephalic, atraumatic. Pupils are equal and reactive to light. CV: Regular rate and rhythm. LUNGS: Clear. ABDOMEN: Distended. Hypoactive bowel sounds. Mildly tender to palpation. EXTREMITIES: No clubbing or cyanosis. SKIN: No rash. HEMATOLOGIC: He has scattered bruising. NEUROLOGIC: Nonfocal. PSYCH: He is oriented to person only. PERTINENT LABS AND X-RAYS: Current WBCs are 8.7, hemoglobin 11.6, hematocrit 34.7, platelet count is 192,000. He has 73% neutrophils, 14% lymphocytes, 12% monocytes. Sodium 139, potassium 3.7, chloride 108, CO2 is 23, BUN is 37, creatinine 1.24, lactic acid is 2, calcium 8.6, bilirubin is 0.3, AST is 9, ALT 7, and alkaline phosphatase is 88. albumin 3.3, globulin 2.4, lipase 4. Urine showed 2+ bacteria. Radiology, per HPI. ASSESSMENT: 1. 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 2. Partial small bowel obstruction, possibly secondary to retained stool. DISCUSSION: The case has been discussed with Dr. Gonzalez and Dr. Brian. The patient's CT shows no evidence of disease. He does have a large amount of retained stool causing a bowel obstruction as well as occasional nausea and vomiting. Fleet Enema and NG tube have been ordered. IV fluids continue. It is unclear why he has altered mental status, hopefully it is metabolic and once his abdominal distention improves so his mentation. Thank you for the consult. We will follow along with his hospitalization. Job ID: [id number] [facility]
[2019-10-08 14:15] VITALS: BMI 21.8
[2019-10-08] MEDS ORDERED: Fleet Enema 133 ML BOT PR PRN (16:21)
[2019-10-08] MEDS: cefTRIAXone\\ROCEPHIN 1 GM in Sodium Chloride 0.9% 100 ML IVPB SCH (18:49)
[2019-10-08] MEDS ORDERED: Metoclopramide HCl 10 MG/2 ML VIAL IVP SCH (23:59)
[2019-10-09] MEDS: Sodium Chloride 0.9% 1,000 ML IV SCH ×3 (03:38→15:52)
[2019-10-09] MEDS ORDERED: Metoclopramide HCl 10 MG/2 ML VIAL IVP SCH (05:00)
[2019-10-09] MEDS ORDERED: chlorproMAZINE HCl 25 MG in Sodium Chloride 0.9% 50 ML IVPB SCH (05:30)
--- NOTE | 2019-10-09 10:19 | PDOC.HOSPP ---
- Subjective Encounter Date: 10/09/19 Encounter Time: 10:12 Subjective: awake, no complaints, orientad to person - Objective Vital Signs & Weight: Vital Signs (12 hours) Temp Pulse Resp BP Pulse Ox 10/09/19 07:56 95 10/09/19 07:36 98.2 F 90 18 135/67 95 10/09/19 04:00 97.4 F L 82 20 114/56 L 95 10/09/19 00:00 97.4 F L 84 20 125/66 93 L Weight Admit Weight 152 lb 1.903 oz Weight 152 lb 1.903 oz I&O: 10/08/19 10/09/19 10/10/19 06:59 06:59 06:59 Intake Total 1800 Output Total 325 Balance 1475 Result Diagrams: 10/08/19 04:56 10/08/19 04:56 Additional Labs: Accuchecks 10/09/19 10/08/19 10/08/19 04:26 19:19 15:30 POC Glucose 126 H 139 H 130 H 10/08/19 10:54 POC Glucose 157 H Hospitalist ROS - Medication Medications: Active Medications Generic Name Dose Route Start Last Admin Trade Name Freq PRN Reason Stop Dose Admin Ceftriaxone Sodium 1 gm/ 100 mls @ 200 mls/hr 10/07/19 18:00 10/08/19 18:49 Sodium Chloride IVPB 100 mls Q24HR TAMMY Administration Sodium Chloride 1,000 mls @ 150 mls/hr 10/07/19 17:30 10/09/19 10:01 Normal Saline 0.9% IV 1,000 mls .Q6H40M TAMMY Administration Sodium Biphosphate/Sodium Phosphate 133 ml 10/08/19 16:21 10/08/19 17:30 Fleet Enema IA 10/09/19 16:22 133 ml NOW PRN Administration . 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, UNSPECIFIED Status: Chronic (3) Acute kidney injury Code(s): N17.9 - ACUTE KIDNEY FAILURE, UNSPECIFIED Status: Acute (4) Diabetes mellitus Code(s): E11.9 - TYPE 2 DIABETES MELLITUS WITHOUT COMPLICATIONS Status: Chronic Qualifiers: Diabetes mellitus type: type 2 Diabetes mellitus fpc insulin use: with buttermaker helper use Diabetes mellitus complication status: with kidney complications Diabetes mellitus complication detail: with chronic kidney disease Chronic kidney disease stage: stage 3 (moderate) Qualified Code(s): E11.22 - Type 2 diabetes mellitus with diabetic chronic kidney disease; N18.3 - Chronic kidney disease, stage 3 (moderate); Z79.4 - care home (current) use of insulin (5) HTN (hypertension) Code(s): I10 - ESSENTIAL (PRIMARY) HYPERTENSION Status: Chronic Qualifiers: Hypertension type: essential hypertension Qualified Code(s): I10 - Essential (primary) hypertension - Plan cont accu/ss cont iv fluids renal fcn improved with fluids Cultures neg to date- cont rocephin discussed with oncologWill attempt to resolve impaction with lactulose per NGT
--- NOTE | 2019-10-09 10:25 | PDOC.EVN ---
Event Note - Event Note Event Note: discussed status, plans with POA
--- NOTE | 2019-10-09 12:05 | RAD ---
Radiograph abdomen one view: DATE: 10/09/2019 Time: 11:20 AM HISTORY: 89-year-old male status post NG tube placement. FINDINGS: Pacemaker leads are noted at the left thoracic base. There is no NG tube in the stomach or duodenum. A portion of a vertically oriented linear density projects over the left thoracoabdominal junction. It is uncertain whether this is artifact or the distal tip of the nasogastric tube at the esophagogas tric junction. Multiple dilated small bowel loops are present. IMPRESSION: 1. NG tube is not in the stomach. Recommend chest radiograph for location of nasogastric tube. 2. Abnormal bowel gas pattern with multiple dilated small bowel loops.
--- NOTE | 2019-10-09 12:43 | RAD ---
EXAM: XR Abdomen 1 View/KUB PROVIDED CLINICAL HISTORY: Nasogastric tube placement. COMPARISON: 10/09/2019 at 1120 hours. FINDINGS: The nasogastric tube has been advanced with tip overlying left upper quadrant and overlying the expec cris location of the fundus of the stomach. Partial visualization of cardiac pacemaking leads are noted. Surgical clips are again seen overlying the right upper quadrant. Dilated and distended gas-fi lled loops of small bowel are seen throughout the visualized abdomen similar to prior exam. IMPRESSION: Interval advancement of the nasogastric tube with tip overlying expected location of the gastric fund us. Multiple dilated loops of small bowel are again seen worrisome for partial small bowel obstruction.
--- NOTE | 2019-10-09 15:00 | PDOC.MOPN ---
Interval History: Patient doesn't like NGT, still disoriented. - Vital Signs Vital Signs: Vital Signs (12 hours) Temp Pulse Resp BP Pulse Ox 10/09/19 07:56 95 10/09/19 07:36 98.2 F 90 18 135/67 95 10/09/19 04:00 97.4 F L 82 20 114/56 L 95 Weight Admit Weight 152 lb 1.903 oz Weight 152 lb 1.903 oz - Physical Exam General: Alert HEENT: Atraumatic, PERRLA, EOMI, Mucous membr. moist/pink Lungs: Clear to auscultation, Normal air movement Cardiovascular: Regular rate, Normal S1, Normal S2, No murmurs, Gallops, Rubs Abdomen: Other (distended) Neurological: Normal speech - Labs Result Diagrams: 10/08/19 04:56 10/08/19 04:56 Lab results: Laboratory Results - last 24 hr 10/09/19 11:35: POC Glucose 130 H 10/09/19 04:26: POC Glucose 126 H 10/08/19 19:19: POC Glucose 139 H 10/08/19 15:30: POC Glucose 130 H Status: lab reviewed by me A/P - Problem (1) SBO (small bowel obstruction) Current Visit: Yes Code(s): K56.609 - UNSP INTESTNL OBST, UNSP TO PARTIAL VERSUS COMPLETE OBST Status: Acute (2) Anal carcinoma Current Visit: Yes Code(s): C21.0 - MALIGNANT NEOPLASM OF ANUS, UNSPECIFIED Status: Chronic - Plan Plan: appreciate Hospitalists management of constipation no evidence of disease will follow along remotely.
--- NOTE | 2019-10-09 15:45 | PQF ---
Date: 10-09-19 ATTN : DR. CALIN MATA Please exercise your independent, professional judgment in responding to the clarification form. Clinical indicators are provided on the bottom of this form for your review Please check appropriate box(s): [ ] Protein Calorie Malnutrition: [ ] Mild [ ] Moderate [ ] Severe [ ] Other Malnutrition (please specify) __ [ x ] Other diagnosis ____acute weight loss due to 2 weeks minimal intake [ ] Unable to determine In addition, please specify: Present on Admission (POA): [ ] Yes [ ] No [ ] Unable to determine CLINICAL INDICATORS - SIGNS / SYMPTOMS / LABS / RESULTS AND LOCATION IN MR: CONSULT NOTE ZIGGY HERZOG 10-08-19: BEGAN TO HAVE SOME NAUSEA AND VOMITING WITH INCREASED WEIGHT LOSS CONSTRUCTION ADMINISTRATIVE ASSISTANT CONSULT 10-08-19: Per MD note, the past week pt has had emesis and during cancer treatment struggled with diarrhea/constipation. CONSTRUCTION ADMINISTRATIVE ASSISTANT CONSULT 10-08-19: -19% x wt loss x 5 months per MD note; -5% x 1 mo per pt report; mild to moderate orbital fat loss and temporalis muscle wasting; limited intake the past 1 week likely meeting less than 50% estimated nutrient needs suggesting severe malnutrition in the context of chronic illness RISK FACTORS / RESULTS AND LOCATION IN MR: CONSTRUCTION ADMINISTRATIVE ASSISTANT CONSULT 10-08-19: PMH: BLADDER CA SX X2, LEFT LEG SX, POOR APPETITE , UNSURE WEIGHT LOSS H&P 10-07-19: HX DM 2, BLADDER CA, HIS WEIGHT IS DOWN 35 POUNDS WITH THE PRESENT ILLNESS, N, V FOR THE PAST 12 HRS, HE HAS HAD DIARRHEA WITH CHEMO TREATMENT / RESULTS AND LOCATION IN MR: CONSTRUCTION ADMINISTRATIVE ASSISTANT CONSULT 10-08-19: 1. Continue NPO status. Once medically feasible, recommend ADAT Fiber Restricted/2000 Consistent Carbohydrate diet. Leave off Heart Healthy restrictions to promote intake. 2. Once diet advanced, recommend adding Glucerna Shakes PRN for meal trays less than 75%. 3. As pt has not been meeting needs for ~week ASSISTANT EDITOR per MD note, consider initiating PN. Standard bag of TPN at rate 70 mL/hr is adequate to meet needs. Moderate Malnutrition (in acute illness) Energy Intake: <75% of estimated energy requirement for > 7 days SAP Administrative Support Specialist Crystal Reports Winform ViewerWeight Loss: 1-2%/1 week; 5%/ 1 month; 7.5%/3 months Other: mild body fat loss; mild muscle mass loss; mild fluid accumulation; Severe Malnutrition (in acute illness) Energy Intake: < 50% of estimated energy requirement for > 5 days Weight Loss: >1-2%/1 week; >5%/1 month; >7.5%/3 months Other: moderate body fat loss; moderate muscle mass loss; moderate- severe fluid accumulation; measurably reduced financial writer strength Moderate Malnutrition (in chronic illness) Energy Intake: <75% of estimated energy requirement for >1 month Weight Loss: 5%/1 month; 7.5%/3 months; 10%/6 months; 20%/1 year Other: mild body fat loss; mild muscle mass loss; mild fluid accumulation Severe Malnutrition (in chronic illness) Energy Intake: <75% of estimated energy requirement for >1 month Weight Loss: >5%/1 month; >7.5%/3 months; >10%/6 months; >20%/1 year Other: severe body fat loss; severe muscle mass loss; severe fluid accumulation ; measurably reduced financial writer strength (This form is maintained as a part of the permanent medical record) 2014 [employer] All Rights Reserved [email or web address]
[2019-10-09] MEDS: Morphine 2 MG/ML SYRINGE SLOW IVP PRN (15:52)
[2019-10-09] MEDS: cefTRIAXone\\ROCEPHIN 1 GM in Sodium Chloride 0.9% 100 ML IVPB SCH (17:05)
[2019-10-10] MEDS: Sodium Chloride 0.9% 1,000 ML IV SCH ×4 (00:09→19:34)
[2019-10-10] MEDS: Morphine 2 MG/ML SYRINGE SLOW IVP PRN ×2 (00:36→23:43)
--- NOTE | 2019-10-10 14:32 | PDOC.HOSPP ---
- Subjective Encounter Date: 10/10/19 Encounter Time: 10:40 Subjective: abd discomfort, received pain med. NGT putting out bilious over 100ml, pt looks quite fatigued. talk to RN, will consult GI. - Objective Vital Signs & Weight: Vital Signs (12 hours) Temp Pulse Resp BP Pulse Ox 10/10/19 12:00 98.4 F 86 16 159/82 H 96 10/10/19 09:00 94 L 10/10/19 08:00 98.0 F 84 20 152/77 H 94 L Weight Admit Weight 152 lb 1.903 oz Weight 152 lb 1.903 oz I&O: 10/09/19 10/10/19 10/11/19 06:59 06:59 06:59 Intake Total 1800 1650 Output Total 325 900 Balance 1475 750 Result Diagrams: 10/08/19 04:56 10/08/19 04:56 Additional Labs: Accuchecks 10/10/19 10/09/19 10/09/19 11:38 19:54 16:03 POC Glucose 88 107 105 Hospitalist ROS - Medication Medications: Active Medications Generic Name Dose Route Start Last Admin Trade Name Freq PRN Reason Stop Dose Admin Ceftriaxone Sodium 1 gm/ 100 mls @ 200 mls/hr 10/07/19 18:00 10/09/19 17:05 Sodium Chloride IVPB 100 mls Q24HR TAMMY Administration Sodium Chloride 1,000 mls @ 150 mls/hr 10/07/19 17:30 10/10/19 12:45 Normal Saline 0.9% IV 1,000 mls .Q6H40M TAMMY Administration Lactulose 20 gm 10/09/19 13:00 10/10/19 14:08 Lactulose PER TUBE 20 gm QID TAMMY Administration Morphine Sulfate 2 mg 10/07/19 17:30 10/10/19 00:36 Morphine SLOW IVP 2 mg Q4H PRN Administration Pain Sodium Chloride 10 ml 10/07/19 21:00 10/10/19 08:58 Flush - Normal Saline IVF Not Given Q12HR TAMMY - Exam General Appearance: ill appearing Eye: PERRL ENT: normocephalic atraumatic Neck: supple Heart: RRR Respiratory: CTAB, normal chest expansion Gastrointestinal: distended, diminished bowl sounds Hosp A/P - Plan (1) SBO (small bowel obstruction) Code(s): K56.609 - UNSP INTESTNL OBST, UNSP TO PARTIAL VERSUS COMPLETE OBST Status: Acute -NGT -NPO _IVF - Cultures neg to date- cont rocephin (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 constipation/impaction - tired lactulose via NGT. (3) Acute kidney injury -improving (4) Diabetes mellitus - SSI (5) HTN (hypertension) --not on BP meds
--- NOTE | 2019-10-10 15:13 | CON ---
DATE OF CONSULTATION: 10/10/2019 HISTORY OF PRESENT ILLNESS: Mr. Espino is an 89-year-old man, who was admitted several days ago with what appeared to be a bowel obstruction, he has been treated with intravenous fluids and nasogastric suction. He has not made any significant improvement in that time. A Surgical consultation was requested regarding the possibility of operative intervention. Mr. Espino has a history of colon cancer and had chemotherapy and radiation therapy, but no operative procedure. He has been loosing weight and has lost about 35 pounds. His past history is remarkable for diabetes, hypertension, arrhythmia, pacemaker, hyperlipidemia, bladder cancer, and colon cancer, type not specified. He has also had a cholecystectomy. ALLERGIES: NONE KNOWN. PHYSICAL EXAMINATION: GENERAL: He appears to be comfortable. He does respond to my speaking with him. He appears to be chronically ill. LUNGS: Clear. HEART: Regular rhythm. ABDOMEN: Markedly distended. Bowel sounds are present. No tenderness. RECTAL: I do not find any obstruction at the anal orifice. EXTREMITIES: Muscle wasting, no edema. NEUROLOGIC: No focal findings. DIAGNOSTIC STUDIES: Lab studies were reviewed. X-rays were reviewed. IMPRESSION: This gentleman is currently a do not resuscitate status. His current findings and his history would suggest that operative intervention is possible, but the likelihood of improving his overall condition or even the possibility of his surviving the operative procedure to return to a functional status is extremely low. I have called his and have explained all of this to her. She is in agreement that operation in the current situation would be futile. As such, I would recommend continuing nasogastric suction, intravenous fluids, and providing comfort measures to Mr. Espino. Job ID: [id number]
[2019-10-10] MEDS: cefTRIAXone\\ROCEPHIN 1 GM in Sodium Chloride 0.9% 100 ML IVPB SCH (17:18)
[2019-10-11] MEDS: Sodium Chloride 0.9% 1,000 ML IV SCH ×3 (02:42→13:45)
[2019-10-11] MEDS ORDERED: hydrALAZINE 20 MG/ML VIAL SLOW IVP SCH (10:00)
--- NOTE | 2019-10-11 13:15 | PDOC.HOSPP ---
- Subjective Encounter Date: 10/11/19 Encounter Time: 10:40 Subjective: Looks slightly better than y'day, NGT still putting out bilious, abd. distension less than y'day, pt talking to the family over the phone, BP high, d/ w RN, will provide hydralazine PRN as pt mostly NPO. - Objective Vital Signs & Weight: Vital Signs (12 hours) Temp Pulse Resp BP Pulse Ox 10/11/19 12:00 97.5 F L 98 20 144/84 H 97 10/11/19 11:24 92 10/11/19 08:00 94 L 10/11/19 07:41 97.6 F 92 18 137/77 94 L Weight Admit Weight 152 lb 1.903 oz Weight 152 lb 1.903 oz I&O: 10/10/19 10/11/19 10/12/19 06:59 06:59 06:59 Intake Total 1650 3430 Output Total 900 2600 Balance 750 830 Result Diagrams: 10/08/19 04:56 10/08/19 04:56 Additional Labs: Accuchecks 10/11/19 10/11/19 10/10/19 12:16 04:03 19:21 POC Glucose 119 H 99 99 10/10/19 16:33 POC Glucose 90 Hospitalist ROS - Medication Medications: Active Medications Generic Name Dose Route Start Last Admin Trade Name Freq PRN Reason Stop Dose Admin Ceftriaxone Sodium 1 gm/ 100 mls @ 200 mls/hr 10/07/19 18:00 10/10/19 17:18 Sodium Chloride IVPB 100 mls Q24HR TAMMY Administration Sodium Chloride 1,000 mls @ 150 mls/hr 10/07/19 17:30 10/11/19 09:08 Normal Saline 0.9% IV 1,000 mls .Q6H40M TAMMY Administration Lactulose 20 gm 10/09/19 13:00 10/11/19 09:10 Lactulose PER TUBE 20 gm QID TAMMY Administration Morphine Sulfate 2 mg 10/07/19 17:30 10/10/19 23:43 Morphine SLOW IVP 2 mg Q4H PRN Administration Pain Sodium Chloride 10 ml 10/07/19 21:00 10/11/19 09:10 Flush - Normal Saline IVF Not Given Q12HR TAMMY - Exam General Appearance: ill appearing General - other findings: NGT --bilious Eye: PERRL, anicteric sclera ENT: normocephalic atraumatic Neck: supple Heart: RRR Respiratory: CTAB, rhonchi Gastrointestinal: distended, diminished bowl sounds Neurological: no focal deficits Hosp A/P - Plan (1) SBO (small bowel obstruction) Code(s): K56.609 - UNSP INTESTNL OBST, UNSP TO PARTIAL VERSUS COMPLETE OBST Status: Acute -NGT -NPO _IVF5th - -NGT still putting out bilious, abd. distension less than y'day, -appreciate the sux input. 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 --though pt may be a sux candidate, given his current functional status, that option not explored further - both pt and family are agreeable in this matter. constipation/impaction - tried lactulose via NGT. (3) Acute kidney injury -improving (4) Diabetes mellitus - SSI (5) HTN (hypertension) --not on BP meds --BP high prob stress induced, d/w RN, will provide hydralazine PRN as pt mostly NPO. Given the severe comorbidity, overall not so good prognosis, palliative consult placed to consider for either home or inpt hospice. DNR
[2019-10-11] MEDS: cefTRIAXone\\ROCEPHIN 1 GM in Sodium Chloride 0.9% 100 ML IVPB SCH (17:00)
[2019-10-11] MEDS: hydrALAZINE 20 MG/ML VIAL SLOW IVP PRN (17:39)
[2019-10-11] MEDS: Morphine 2 MG/ML SYRINGE SLOW IVP PRN ×2 (17:46→22:21)
[2019-10-12] MEDS: Sodium Chloride 0.9% 1,000 ML IV SCH ×4 (00:43→20:43)
--- NOTE | 2019-10-12 09:20 | PQF ---
DATE: 10-12-19 ATTN: DR. INDRA FUNEZ Please exercise your independent, professional judgment in responding to the clarification form. Clinical indicators are provided on the bottom of this form for your review Please check appropriate box(s): [ x ] Encephalopathy: Type: [ x] Acute [ ] Subacute [ ] Chronic Etiology: [ ] Metabolic [ ] Toxic [ ] Other (please specify) [ ] Transient Alteration of Awareness [ ] Other diagnosis [ ] Unable to determine In addition, please specify: Present on Admission (POA): [ ] Yes [ ] No [ ] Unable to determine For continuity of documentation, please document condition throughout progress notes and discharge summary. Thank You. CLINICAL INDICATORS - SIGNS / SYMPTOMS / LABS / RESULTS AND LOCATION IN EMR: ER NOTES 10-07-19: VOMITING CONFUSION, CHANGES IN MENTATION, NOTED TO HAVE INCREASING CONFUSION AND DIFFICULTY SPEAKING ER DX 10-07-19: BOWEL OBSTRUCTION, ALTERED MENTAL STATUS H&P 10-07-19: PATIENT ORIENTED TO NAME ONLY, DECREASED MENTAL STATUS CONSULT NOTE ZIGGY HERZOG APRN 10-08-19: IT IS UNCLEAR WHY HE HAS ALTERED MENTAL STATUS, HOPEFULLY IT IS METABOLIC AND ONCE HIS ABD DISTENTION IMPROVES SO HIS MENTATION, RISK FACTORS / RESULTS AND LOCATION IN EMR: CONSULT NOTE ZIGGY HERZOG APRN 10-08-19: HX RECTAL SQUAMOUS CELL CARCINOMA, IT IS UNCLEAR WHY HE HAS ALTERED MENTAL STATUS, HOPEFULLY IT IS METABOLIC AND ONCE HIS ABD DISTENTION IMPROVES SO HIS MENTATION, TREATMENTS / RESULTS AND LOCATION IN EMR: CONSULT NOTE ZIGGY HERZOG APRN 10-08-19: IVF CONTINUE MAR: 10-07-19: NS IVF, ROCEPHIN IV MTDD
--- NOTE | 2019-10-12 13:28 | PDOC.HOSPP ---
- Subjective Encounter Date: 10/12/19 Encounter Time: 08:20 Subjective: pt feels no nausea or abd pain and no appetite. NGT has not emptied since y' day am, and it appears almost over 900 ml. abd worse than y'day's distention, d/w nurse about close output monitoring. - Objective Vital Signs & Weight: Vital Signs (12 hours) Temp Pulse Resp BP Pulse Ox 10/12/19 08:00 96 10/12/19 07:40 97.7 F 91 22 H 128/66 96 Weight Admit Weight 152 lb 1.903 oz Weight 152 lb 1.903 oz I&O: 10/11/19 10/12/19 10/13/19 06:59 06:59 06:59 Intake Total 3430 1650 Output Total 2600 450 Balance 830 1200 Result Diagrams: 10/08/19 04:56 10/08/19 04:56 Additional Labs: Accuchecks 10/12/19 10/12/19 10/11/19 11:02 03:45 19:51 POC Glucose 121 H 125 H 125 H 10/11/19 10/10/19 16:22 04:49 POC Glucose 122 H 87 Hospitalist ROS - Medication Medications: Active Medications Generic Name Dose Route Start Last Admin Trade Name Freq PRN Reason Stop Dose Admin Hydralazine HCl 10 mg 10/11/19 11:28 10/11/19 17:39 Apresoline SLOW IVP 10 mg Q4H PRN Administration SBP>150 Ceftriaxone Sodium 1 gm/ 100 mls @ 200 mls/hr 10/07/19 18:00 10/11/19 17:00 Sodium Chloride IVPB 100 mls Q24HR TAMMY Administration Sodium Chloride 1,000 mls @ 150 mls/hr 10/07/19 17:30 10/12/19 07:25 Normal Saline 0.9% IV Not Given .Q6H40M TAMMY Lactulose 20 gm 10/09/19 13:00 10/12/19 08:51 Lactulose PER TUBE 20 gm QID TAMMY Administration Morphine Sulfate 2 mg 10/07/19 17:30 10/11/19 22:21 Morphine SLOW IVP 2 mg Q4H PRN Administration Pain Sodium Chloride 10 ml 10/07/19 21:00 10/12/19 08:52 Flush - Normal Saline IVF Not Given Q12HR TAMMY - Exam General Appearance: ill appearing Eye: PERRL ENT: normocephalic atraumatic Neck: supple Heart: RRR Respiratory: CTAB Gastrointestinal: distended, diminished bowl sounds Hosp A/P - Plan (1) SBO (small bowel obstruction) Code(s): K56.609 - UNSP INTESTNL OBST, UNSP TO PARTIAL VERSUS COMPLETE OBST Status: Acute -NGT -NPO _IVF5th - -NGT still putting out bilious, abd. distension less than y'day, -appreciate the sux input. 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 --though pt may be a sux candidate, given his current functional status, that option not explored further - both pt and family are agreeable in this matter. constipation/impaction - tried lactulose via NGT. - seems not helping, how pt also NPO - will check imaging study to see the extent of fluid and kub to r/o obstipation and if needed, provide enema. (3) Acute kidney injury -improving (4) Diabetes mellitus - SSI (5) HTN (hypertension) --not on BP meds --BP high prob stress induced, d/w RN, will provide hydralazine PRN as pt mostly NPO. Given the severe comorbidity, overall not so good prognosis, palliative consult placed to consider for either home or inpt hospice. DNR
--- NOTE | 2019-10-12 13:58 | RAD ---
Exam: 1 VIEW ABDOMEN COMPARISON: 10/09/2019. HISTORY: Distention. Evaluate for obstruction. FINDINGS: Portable supine radiograph demonstrates a nasogastric tube terminating in the epigastric re gion. Persistent multiple air-filled distended loops of small bowel. Paucity of gas in the colon. IMPRESSION: Radiographic evidence of a high-grade small bowel obstruction. General surgical consultat ion is recommended. CODE T Transcribed Date/Time: 10/12/2019 2:21 PM
--- NOTE | 2019-10-12 15:11 | ULT ---
LIMITED ABDOMINAL ULTRASOUND ASCITS SEARCH: DATE: 10/12/2019. HISTORY: Distention, assess for ascites. FINDINGS: Trace ascites noted in the right upper quadrant and left lower quadrant. Trace amount of right pleur al fluid noted as well. IMPRESSION: Trace right pleural effusion and trace ascites. POS: [facility]
--- NOTE | 2019-10-12 15:42 | PDOC.MOPN ---
Interval History: c/o abdominal pain, thirsty. - Vital Signs Vital Signs: Vital Signs (12 hours) Temp Pulse Resp BP Pulse Ox 10/12/19 08:00 96 10/12/19 07:40 97.7 F 91 22 H 128/66 96 Weight Admit Weight 152 lb 1.903 oz Weight 152 lb 1.903 oz - Physical Exam General: Alert Lungs: Clear to auscultation Cardiovascular: Regular rate Abdomen: Other (distended, ngt in place) Extremities: No clubbing, No cyanosis, No edema, Normal pulses, No tenderness/ swelling Neurological: Normal speech - Labs Result Diagrams: 10/08/19 04:56 10/08/19 04:56 Lab results: Laboratory Results - last 24 hr 10/12/19 11:02: POC Glucose 121 H 10/12/19 03:45: POC Glucose 125 H 10/11/19 19:51: POC Glucose 125 H 10/11/19 16:22: POC Glucose 122 H 10/10/19 04:49: POC Glucose 87 Status: lab reviewed by me A/P - Problem (1) SBO (small bowel obstruction) Current Visit: Yes Code(s): K56.609 - UNSP INTESTNL OBST, UNSP TO PARTIAL VERSUS COMPLETE OBST Status: Acute (2) Anal carcinoma Current Visit: Yes Code(s): C21.0 - MALIGNANT NEOPLASM OF ANUS, UNSPECIFIED Status: Chronic - Plan Plan: 1. agree with comfort care and pain management. 2. will sign off. Call if needed.
[2019-10-12] MEDS: cefTRIAXone\\ROCEPHIN 1 GM in Sodium Chloride 0.9% 100 ML IVPB SCH (17:17)
[2019-10-12] MEDS: Morphine 2 MG/ML SYRINGE SLOW IVP PRN (22:46)
[2019-10-13] MEDS: Sodium Chloride 0.9% 1,000 ML IV SCH ×3 (03:41→12:27)
--- NOTE | 2019-10-13 13:51 | PDOC.HOSPP ---
- Subjective Encounter Date: 10/13/19 Encounter Time: 11:20 Subjective: NGT reinserted, still it is draining bilious, US of abd...trace ascites. pt looks quite fragile and fatigued today than the last few days. no nausea and no appetite. - Objective Vital Signs & Weight: Vital Signs (12 hours) Temp Pulse Resp BP Pulse Ox 10/13/19 08:00 97 10/13/19 07:59 97.6 F 96 16 142/76 H 97 Weight Admit Weight 152 lb 1.903 oz Weight 152 lb 1.903 oz I&O: 10/12/19 10/13/19 10/14/19 06:59 06:59 06:59 Intake Total 1650 1850 Output Total 450 1200 Balance 1200 650 Result Diagrams: 10/08/19 04:56 10/08/19 04:56 Additional Labs: Accuchecks 10/13/19 10/13/19 10/12/19 11:57 05:54 19:42 POC Glucose 107 111 H 115 H 10/12/19 16:42 POC Glucose 115 H Hospitalist ROS - Medication Medications: Active Medications Generic Name Dose Route Start Last Admin Trade Name Freq PRN Reason Stop Dose Admin Hydralazine HCl 10 mg 10/11/19 11:28 10/11/19 17:39 Apresoline SLOW IVP 10 mg Q4H PRN Administration SBP>150 Ceftriaxone Sodium 1 gm/ 100 mls @ 200 mls/hr 10/07/19 18:00 10/12/19 17:17 Sodium Chloride IVPB 100 mls Q24HR TAMMY Administration Sodium Chloride 1,000 mls @ 150 mls/hr 10/07/19 17:30 10/13/19 12:27 Normal Saline 0.9% IV 1,000 mls .Q6H40M TAMMY Administration Lactulose 20 gm 10/09/19 13:00 10/13/19 12:27 Lactulose PER TUBE 20 gm QID TAMMY Administration Morphine Sulfate 2 mg 10/07/19 17:30 10/12/19 22:46 Morphine SLOW IVP 2 mg Q4H PRN Administration Pain Sodium Chloride 10 ml 10/07/19 21:00 10/13/19 07:53 Flush - Normal Saline IVF Not Given Q12HR TAMMY - Exam General Appearance: ill appearing Eye: PERRL ENT: normocephalic atraumatic Neck: supple Heart: RRR Respiratory: CTAB, normal chest expansion Gastrointestinal: distended, diminished bowl sounds Hosp A/P - Plan (1) SBO (small bowel obstruction) Code(s): K56.609 - UNSP INTESTNL OBST, UNSP TO PARTIAL VERSUS COMPLETE OBST Status: Acute -NGT -NPO -NGT still putting out bilious, abd. distension less than y'day, -appreciate the sux input. 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 --though pt may be a sux candidate, given his current functional status, that option not explored further - both pt and family are agreeable in this matter. constipation/impaction - tried lactulose via NGT. - seems not helping, how pt also NPO - will check imaging study to see the extent of fluid and kub to r/o obstipation and if needed, provide enema. (3) Acute kidney injury -improving (4) Diabetes mellitus - SSI (5) HTN (hypertension) --not on BP meds --BP high prob stress induced, d/w RN, will provide hydralazine PRN as pt mostly NPO. as he is NPO many days, need to start him on TPN until hospice on board and/or NGT drain less and pt starts some PO intake. Given the severe comorbidity, overall not so good prognosis, palliative consult placed to consider for either home or inpt hospice. DNR
--- NOTE | 2019-10-13 14:44 | EKG ---
Test Reason : Blood Pressure : / mmHG Vent. Rate : 090 BPM Atrial Rate : 089 BPM P-R Int : 000 ms QRS Dur : 182 ms QT Int : 496 ms P-R-T Axes : 000 -88 077 degrees QTc Int : 606 ms Electronic ventricular pacemaker Confirmed by CALVIN GREENE, MARSHA ([id number]), acquisition editor JODY CHRISTOPHER ([id number]) on 10/13/2019 2:44:05 PM Referred By: CALVIN Confirmed By:MARSHA SIMPSON MD
[2019-10-13 15:11] LABS: #Lymphocytes 0.9 thou/uL (1.20-3.40); #Monocytes 0.5 thou/uL (0.11-0.59); #Neutrophils 2.1 thou/uL (1.40-6.50); %Eosinophils 1.1 % (0.0-10.0); %Lymphocytes 26.5 % (21.0-51.0); %Monocytes 12.7 % (0.0-10.0); %Neutrophils 59.7 % (42.0-75.0); Hemoglobin 13.4 g/dL (14.0-18.0); Mean Corpuscular HGB CONC 32.5 g/dL (32.0-36.0); Mean Corpuscular Hemoglobin 29.9 pg (27.0-31.0); Mean Corpuscular Volume 91.8 fL (78.0-98.0); Mean Platelet Volume 7.5 fL (7.4-10.4); Platelet Count 152 thou/uL (130-400); RBC Distribution Width 14.9 % (11.5-14.5); Red Blood Cell (RBC) Count 4.49 mill/uL (4.70-6.10); White Blood Cell (WBC) Count 3.6 thou/uL (4.8-10.8)
[2019-10-13 15:35] LABS: Anion Gap 12 mmol/L (10-20); BUN (Urea Nitrogen) 24 mg/dL (8.4-25.7); Calc. Creatinine Clearance 43 mL/min (70-130); Calcium 8.3 mg/dL (7.8-10.44); Carbon Dioxide 19 mmol/L (23-31); Estimated GFR-MDRD 59; Glucose 112 mg/dL (83-110); Sodium 155 mmol/L (136-145)
[2019-10-13 15:52] LABS: Chloride 127 mmol/L (98-107); Potassium 2.9 mmol/L (3.5-5.1)
[2019-10-13] MEDS: D5W-AA 4.25% with LYTES 1,000 ML IV SCH (15:56)
[2019-10-13] MEDS: NS 0.9% w/ 20 MEQ KCL 1,000 ML IV SCH (17:22)
[2019-10-14] MEDS: Morphine 2 MG/ML SYRINGE SLOW IVP PRN (10:16)
--- NOTE | 2019-10-14 12:20 | PDOC.HOSPP ---
- Subjective Encounter Date: 10/14/19 Encounter Time: 09:20 Subjective: pt doing well, he had 100 ml NGT drain this am. talk to Palliative. tried to call miko Fitzpatrick. and left a message. had 2 Bms today. - Objective Vital Signs & Weight: Vital Signs (12 hours) Temp Pulse Resp BP Pulse Ox 10/14/19 11:39 97.7 F 84 12 144/83 H 96 10/14/19 08:00 96 10/14/19 07:08 97.4 F L 94 19 116/73 96 10/14/19 03:28 98.1 F 98 18 128/79 97 Weight Admit Weight 152 lb 1.903 oz Weight 152 lb 1.903 oz I&O: 10/13/19 10/14/19 10/15/19 06:59 06:59 06:59 Intake Total 1850 Output Total 1200 Balance 650 Result Diagrams: 10/13/19 15:03 10/13/19 15:03 Additional Labs: Accuchecks 10/14/19 10/13/19 10/13/19 05:31 19:49 16:39 POC Glucose 171 H 162 H 114 H 10/13/19 11:57 POC Glucose 107 Hospitalist ROS - Medication Medications: Active Medications Generic Name Dose Route Start Last Admin Trade Name Freq PRN Reason Stop Dose Admin Hydralazine HCl 10 mg 10/11/19 11:28 10/11/19 17:39 Apresoline SLOW IVP 10 mg Q4H PRN Administration SBP>150 Amino Acids/Electrolytes/Dextrose 1,000 mls @ 80 mls/hr 10/13/19 15:00 15:56 Clinimix E 4.25/5 IV 1,000 mls INF TAMMY Administration Potassium Chloride/Sodium Chloride 1,000 mls @ 40 mls/hr 10/13/19 17:30 10/12 17:22 Ns 0.9% W/ 20 Meq Kcl IV 1,000 mls .Q24H TAMMY Administration Lactulose 20 gm 10/09/19 13:00 10/14/19 09:11 Lactulose PER TUBE 20 gm QID TAMMY Administration Morphine Sulfate 2 mg 10/07/19 17:30 10/14/19 10:16 Morphine SLOW IVP 2 mg Q4H PRN Administration Pain Sodium Chloride 10 ml 10/07/19 21:00 10/14/19 09:11 Flush - Normal Saline IVF Not Given Q12HR TAMMY - Exam General Appearance: ill appearing Eye: PERRL ENT: normocephalic atraumatic Neck: supple Heart: RRR Respiratory: CTAB, normal chest expansion Gastrointestinal: distended, diminished bowl sounds Hosp A/P - Plan (1) SBO (small bowel obstruction) Code(s): K56.609 - UNSP INTESTNL OBST, UNSP TO PARTIAL VERSUS COMPLETE OBST Status: Acute -NGT -NPO -NGT still putting out bilious, abd. distension less than y'day, -appreciate the sux input. 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 --though pt may be a sux candidate, given his current functional status, that option not explored further - both pt and family are agreeable in this matter. constipation/impaction - tried lactulose via NGT. - seems not helping, how pt also NPO - will check imaging study to see the extent of fluid and kub to r/o obstipation and if needed, provide enema. (3) Acute kidney injury -improving (4) Diabetes mellitus - SSI (5) HTN (hypertension) --not on BP meds --BP high prob stress induced, d/w RN, will provide hydralazine PRN as pt mostly NPO. as he is NPO many days, need to start him on TPN until hospice on board and/or NGT drain less and pt starts some PO intake. Given the severe comorbidity, overall not so good prognosis, palliative consult placed to consider for either home or inpt hospice. 8th After talking to his dtr, yesterday, family wants him to be on full medical mgmt. Active hospice mgmt placed on hold. I also updated his PCP last evening. if his NGT ouput reduced to <100ml/8 hr period, we can consider CLD. h.e. not sure he would be able to handle it. PEG also out of qs given complete SBO. H.e. I will check with our GI colleaques on that as well. c/s placed and left a message for GI oncall. constipation -- pt on lactulose qid via NGT, hold if he had 2BMs a day for that day. DNR
[2019-10-14] MEDS ORDERED: MD-Gastroview 120 ML BOT ONE (13:06)
--- NOTE | 2019-10-14 14:31 | PDOC.HOSPP ---
- Objective Vital Signs & Weight: Vital Signs (12 hours) Temp Pulse Resp BP Pulse Ox 10/14/19 11:39 97.7 F 84 12 144/83 H 96 10/14/19 08:00 96 10/14/19 07:08 97.4 F L 94 19 116/73 96 10/14/19 03:28 98.1 F 98 18 128/79 97 Weight Admit Weight 152 lb 1.903 oz Weight 152 lb 1.903 oz I&O: 10/13/19 10/14/19 10/15/19 06:59 06:59 06:59 Intake Total 1850 Output Total 1200 Balance 650 Result Diagrams: 10/13/19 15:03 10/13/19 15:03 Additional Labs: Accuchecks 10/14/19 10/14/19 10/13/19 11:41 05:31 19:49 POC Glucose 158 H 171 H 162 H 10/13/19 16:39 POC Glucose 114 H Hospitalist ROS - Medication Medications: Active Medications Generic Name Dose Route Start Last Admin Trade Name Freq PRN Reason Stop Dose Admin Hydralazine HCl 10 mg 10/11/19 11:28 10/11/19 17:39 Apresoline SLOW IVP 10 mg Q4H PRN Administration SBP>150 Amino Acids/Electrolytes/Dextrose 1,000 mls @ 80 mls/hr 10/13/19 15:00 15:56 Clinimix E 4.25/5 IV 1,000 mls INF TAMMY Administration Potassium Chloride/Sodium Chloride 1,000 mls @ 40 mls/hr 10/13/19 17:30 10/12 17:22 Ns 0.9% W/ 20 Meq Kcl IV 1,000 mls .Q24H TAMMY Administration Lactulose 20 gm 10/09/19 13:00 10/14/19 13:46 Lactulose PER TUBE Not Given QID TAMMY Morphine Sulfate 2 mg 10/07/19 17:30 10/14/19 10:16 Morphine SLOW IVP 2 mg Q4H PRN Administration Pain Sodium Chloride 10 ml 10/07/19 21:00 10/14/19 09:11 Flush - Normal Saline IVF Not Given Q12HR TAMMY Hosp A/P - Plan (1) SBO (small bowel obstruction) Code(s): K56.609 - UNSP INTESTNL OBST, UNSP TO PARTIAL VERSUS COMPLETE OBST Status: Acute -NGT -NPO -NGT still putting out bilious, abd. distension less than y'day, -appreciate the sux input. 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 --though pt may be a sux candidate, given his current functional status, that option not explored further - both pt and family are agreeable in this matter. constipation/impaction - tried lactulose via NGT. - seems not helping, how pt also NPO - will check imaging study to see the extent of fluid and kub to r/o obstipation and if needed, provide enema. (3) Acute kidney injury -improving (4) Diabetes mellitus - SSI (5) HTN (hypertension) --not on BP meds --BP high prob stress induced, d/w RN, will provide hydralazine PRN as pt mostly NPO. as he is NPO many days, need to start him on TPN until hospice on board and/or NGT drain less and pt starts some PO intake. Given the severe comorbidity, overall not so good prognosis, palliative consult placed to consider for either home or inpt hospice. 8th After talking to his dtr, yesterday, family wants him to be on full medical mgmt. Active hospice mgmt placed on hold. I also updated his PCP last evening. if his NGT ouput reduced to <100ml/8 hr period, we can consider CLD. h.e. not sure he would be able to handle it. PEG also out of qs given complete SBO. H.e. I will check with our GI colleaques on that as well. c/s placed and left a message for GI oncall. constipation -- pt on lactulose qid via NGT, hold if he had 2BMs a day for that day. DNR
--- NOTE | 2019-10-14 16:50 | CON ---
DATE OF CONSULTATION: 10/14/2019 REQUESTING PHYSICIAN: Dr. Massey. 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 The patient is undergoing chemoradiation therapy. The patient had developed chemotherapy associated nausea and emesis, which is being managed with antiemetics. Over the last 2 weeks, the patient has had worsening episodes of nausea and emesis and has become intolerant to oral intake. Currently anorexic. He is having intermittent episodes of loose bowel movements. His abdomen has become progressively distended, though no significant abdominal pain. He has had multiple loose bowel movements today. On admission, a CT scan of the abdomen and pelvis was obtained which revealed multiple distended loops of small and large bowel, which appeared to taper in the rectum about the area of his rectal carcinoma. Subsequent x-ray of the abdomen, which was obtained 2 days ago revealed multiple distended loops of small bowel, although no large bowel gas was apparent in the images shown. Nasogastric tube which was placed on admission was initially returning high volume of bilious effluent. Over the last 24 to 36 hours, it has become moderate amount, which is now nonbilious in nature. By the patient and nursing account, there is a decrease in the abdominal distention. PAST MEDICAL HISTORY: Significant for type 2 diabetes mellitus, transition cell bladder cancer, well differentiated rectal and anal cancer, essential hypertension, and hyperlipidemia. PAST SURGICAL HISTORY: Pertinent for transurethral bladder tumor resection x4, transurethral resection of prostate, laparoscopic cholecystectomy, pacemaker insertion, and most recent colonoscopy with ascending colon polypectomy as well as multiple rectal biopsies in April of 2019. PRE-HOSPITAL MEDICATIONS: Includes; 1. Megace 40 mg p.o. daily. 2. Imodium p.r.n. for diarrhea. 3. Flomax 0.4 mg p.o. daily. 4. Tramadol 50 mg p.o. q.i.d. ALLERGIES: THE PATIENT HAS NO KNOWN DRUG ALLERGIES. FAMILY HISTORY: Noncontributory for this patient's age. REVIEW OF SYSTEMS: Ten-point review of systems essentially unremarkable except as stated in past medical history and chief complaint. PHYSICAL EXAMINATION: GENERAL: Reveals an 89-year-old, deconditioned, frail-appearing elderly man, who is otherwise coherent and interactive. He appears to be in no acute distress at the time of my evaluation. VITAL SIGNS: Include blood pressure 144/83, pulse is 84, respiratory rate is 12 , temperature 97.7 degrees Fahrenheit, oxygen saturation 96% on room air. HEENT: Pupils equal, round, reactive to light and accommodation. HEART: Reveals regular rate. No murmurs or gallops auscultated. LUNGS: Clear to auscultation bilaterally. Breathing, regular and nonlabored. ABDOMEN: Soft and distended with no tenderness to palpation. Liver and spleen nonpalpable below costal margin. NEUROLOGIC: Reveals no focal deficits present. LABORATORY FINDINGS: Today include a CBC with 3600 white blood cells, hemoglobin and hematocrit are stable at 13.4 and 41.2 respectively. Platelet count is 152, 000. Metabolic profile yesterday sodium of 155, potassium 2.9, chloride 127, BUN 24, creatinine is 1.17, glucose 112, magnesium 1.8. I have reviewed the CT scan of the abdomen and pelvis, which was obtained on 10/07/2019, which is remarkable for multiple distended loops of small and large bowel with gas, there is a stricture of the rectum which is accountable for the incomplete emptying of the colon resulting in partial small-bowel obstruction. Other findings include diverticulosis coli. Abdominal x-ray obtained on 10/11 as I described above reveals multiple distended loops of small bowel with no clear transition zone. IMPRESSION: Acute partial small and large bowel obstruction, likely secondary to strictured rectum secondary to rectal carcinoma, status post chemoradiation therapy. RECOMMENDATIONS: 1. We will obtain a small bowel follow-through to define a transition zone if any. 2. Continue with bowel rest and nasogastric tube decompression. 3. There is no acute surgical indication for this patient at this time. 4. We will continue with serial physical examination pending, of the small bowel follow-through, at which time, further recommendations will be made. Above findings and plan discussed with the patient in the presence of his nurse at bedside. The patient indicated understanding of information given. Thank you again, Dr. Massey for allowing me the opportunity to participate in the care of this patient. Job ID: [id number] [facility]
[2019-10-14] MEDS ORDERED: Ondansetron PF 4 MG/2 ML Vial IVP PRN (19:58)
[2019-10-14] MEDS: D5W-AA 4.25% with LYTES 1,000 ML IV SCH (20:18)
--- NOTE | 2019-10-14 20:33 | RAD ---
SMALL BOWEL FOLLOW THROUGH 10/14/19 PROVIDED CLINICAL HISTORY: Small bowel obstruction. FINDINGS: The swim instructor radiograph demonstrates numerous gas filled dilated loops of small bowel, compatible with s mall bowel obstruction. Enteric contrast is administered through the patient's enteric catheter. Ther e is insufficient contrast material present within small bowel to adequately evaluate transit though there is no definite evidence for contrast material present within the distal small bowel or colon. IMPRESSION: Findings compatible with small bowel obstruction, incompletely evaluated as insufficient contrast mat erial progress from the stomach into bowel. POS: LEONARDA
[2019-10-14] MEDS: NS 0.9% w/ 20 MEQ KCL 1,000 ML IV SCH (20:42)
[2019-10-14 21:02] LABS: Band 12 % (5-11); Eosinophils 2 % (0-10); Hemoglobin 15.4 g/dL (14.0-18.0); Lymphocytes 28 % (21-51); MDiff Complete? YES; Mean Corpuscular HGB CONC 32.9 g/dL (32.0-36.0); Mean Corpuscular Hemoglobin 30.3 pg (27.0-31.0); Mean Corpuscular Volume 92.1 fL (78.0-98.0); Mean Platelet Volume 8.4 fL (7.4-10.4); Monocytes 11 % (0-10); Neutrophil 47 % (42-75); Platelet Count 159 thou/uL (130-400); Platelet Morphology Comment Appears Adequate; Red Blood Cell (RBC) Count 5.06 mill/uL (4.70-6.10); White Blood Cell (WBC) Count 5.9 thou/uL (4.8-10.8)
--- NOTE | 2019-10-14 22:43 | PRG ---
DATE OF SERVICE: SUBJECTIVE: The patient was seen this evening during rounds. Earlier in the day, a small-bowel follow-through was ordered by Dr. Velasco. The patient was not able to complete the study as his NG tube was hooked up to suction before the study was completed. He did receive a second dose of contrast through the NG tube, but subsequently about 1 to 2 hours later, had about a 200 mL episode of emesis. He reported abdominal pain before emesis, which had improved. At that time, Dr. Velasco was contacted and the patient's small-bowel follow-through study was discontinued. A repeat x-ray of the abdomen for the morning was ordered. OBJECTIVE: VITAL SIGNS: Temperature 97.8, pulse 90, respirations 20, oxygen saturation 97% on room air, and blood pressure 121/78. GENERAL: Well-appearing elderly male, lying in bed with no signs of acute distress. PULMONARY: Equal chest rise and fall. No signs of acute respiratory distress. ABDOMEN: Soft, nontender, and moderately distended. There is no change from previous examination. EXTREMITIES: 2+ pulses in all extremities. Gross motor and sensation intact. No significant swelling noted. NEUROLOGIC: GCS is 15. ASSESSMENT: Acute partial small-bowel obstruction, likely secondary to strictured rectum due to rectal carcinoma, status post chemoradiation therapy. PLAN: The patient's NG tube was placed back to suction this evening after discussion with Dr. Velasco due to the patient's nausea and vomiting during the small-bowel follow-through exam. The patient reports no abdominal pain after emesis. His abdomen is soft, nontender and moderately distended as it was previously. We will continue to closely monitor the patient's abdominal exam. Per Dr. Velasco, we will complete an abdominal x-ray in the morning and he will be evaluated by our team tomorrow as well with updated recommendations at that time. This patient was discussed with Dr. Velasco before this dictation. Job ID: [id number]
[2019-10-15 07:16] LABS: Anion Gap 10 mmol/L (10-20); BUN (Urea Nitrogen) 36 mg/dL (8.4-25.7); Calc. Creatinine Clearance 53 mL/min (70-130); Calcium 8.4 mg/dL (7.8-10.44); Carbon Dioxide 18 mmol/L (23-31); Estimated GFR-MDRD 74; Glucose 142 mg/dL (83-110); Magnesium 2.3 mg/dL (1.6-2.6); Phosphorus 3.4 mg/dL (2.3-4.7); Potassium 3.3 mmol/L (3.5-5.1); Sodium 152 mmol/L (136-145)
[2019-10-15 07:20] LABS: Chloride 127 mmol/L (98-107)
[2019-10-15] MEDS ORDERED: Dextrose 5% in Water 1,000 ML IV SCH (08:30)
--- NOTE | 2019-10-15 08:31 | RAD ---
ABDOMEN 2 VIEWS: Date: 10/15/2019 HISTORY: Follow-up small bowel follow-through from 10/14/2019. FINDINGS: KUB and left lateral decubitus views of the abdomen again demonstrate numerous markedly dilated small bowel loops with air fluid levels throughout. No evidence for free intraperitoneal air. NG tube in p lace. There still appears to be some faint contrast within the more proximal small bowel. I cannot co nfirm a significant amount of contrast to have advanced into the colon off of this study, although th ere was relatively very minimal dilute contrast noted to have advanced into the small bowel on the all bowel examination from yesterday. IMPRESSION: Persistent abnormally dilated small bowel loops with air fluid levels. No convincing evidence for def initive contrast media to have progressed within the colon, although the amount of contrast which ent ered the small bowel on yesterday's exam was limited and not very dense. Continue short-term follow-u p. POS: RRE
[2019-10-15] MEDS: Dextrose 5% in Water 1,000 ML IV SCH ×3 (11:15→23:12)
--- NOTE | 2019-10-15 11:27 | PRG ---
DATE OF SERVICE: 10/15/2019 SUBJECTIVE: Mr. Espino is an 89-year-old man with history of known squamous cell carcinoma of the anus and rectum. The patient is admitted with acute small and large bowel obstruction. CT scan of the abdomen and pelvis, which was obtained on 10/07/2019, revealed multiple distended loops of small and large bowel with transition zone of the rectum and the area of the squamous cell carcinoma. The patient has been managed conservatively with a nasogastric tube decompression. He is having loose small bowel movements. Abdominal x-ray which was obtained on 10/12/2019, revealed multiple distended loops of small bowel, large intestine was not visible, and was presumed to be high-grade small bowel obstruction. We initiated small bowel follow-through yesterday, which was suspended once patient developed nausea, vomiting, and worsening abdominal pain. Repeat abdominal x-ray this morning showed multiple distended loops of small bowel. Large intestine was again not visible. The patient, however, reports no abdominal pain this morning. OBJECTIVE: VITAL SIGNS: Blood pressure of 130/74, pulse 81, respiratory rate is 20, temperature 97.9 degrees Fahrenheit, oxygen saturation is 96% on room air. HEART: Regular rate and rhythm. LUNGS: Clear to auscultation bilaterally. Breathing, regular and nonlabored. ABDOMEN: Soft, distended, though less so. Clearly has no peritoneal signs on examination. NEUROLOGIC: No focal deficits present. LABORATORY FINDINGS: Today include a CBC with 5900 white blood cells, hemoglobin and hematocrit 15.4 and 46.6 respectively. Platelet count is 159,000. Metabolic profile; sodium 152, potassium 3.3, chloride is 127, bicarb is 18, BUN 36, creatinine is 0.96, magnesium 2.3, and phosphorus is 3.4. Note that yesterday's BUN and creatinine were 24 and 1.17 respectively. IMPRESSIONS: 1. Persistent acute small-bowel obstruction, which I suspect is secondary to large bowel obstruction. 2. Acute hypernatremia. 3. Acute hypokalemia. 4. Acute prerenal azotemia with marginal hemoconcentration. PLAN: 1. We will obtain a CT scan of the abdomen and pelvis to rule out obstructive colon, which may require diverting colostomy. On the other hand, if no colonic obstruction is noted, we will continue with conservative management to treat the acute small bowel obstruction failure, which might require exploratory laparotomy. 2. Correct abnormal electrolytes. 3. PICC line will be placed. TPN will be initiated. Adjust him for the current hypernatremia. We will provide optimal free water. In the interim, we will start D5W use with 3 amps of sodium bicarbonate at 100 mL/hours. Above findings and plan have been discussed with the primary service and with the patient's daughter by telephone conversation. Job ID: [id number]
--- NOTE | 2019-10-15 11:38 | CT ---
CT ABDOMEN AND PELVIS WITHOUT CONTRAST: Date; 10/15/2019 COMPARISON: 10/07/2019. Small bowel follow-through 10/14/2019. HISTORY: Small bowel obstruction. TECHNIQUE: Multiple contiguous axial images were obtained in a CT of the abdomen and pelvis without contrast. Sa gittal and coronal reformats were performed. FINDINGS: The gallbladder has been removed. No significant biliary dilatation is seen. Multiple calcified granu easton are seen in the spleen. No focal liver lesions are seen. There are hypodensities in both kidney s which may represent small cysts. The adrenal glands and pancreas are unremarkable, although evaluat ion is limited without IV contrast. A NG tube is seen in the stomach. There is contrast seen in the large bowel and distal small bowel. T he small bowel loops are still distended, measuring up to 3.8 cm in size. No obvious transition point is seen. The appendix is seen in the right lower quadrant of the abdomen and contains air. There is an area of saccular dilatation of the infrarenal aorta which measures 4.0 cm in size. There is a small amount of ascites. Scattered diverticula are seen in the colon. No abdominal or pelvic lym phadenopathy are seen. There are small bilateral pleural effusions with adjacent atelectasis. Degenerative changes are seen in the spine. IMPRESSION: 1. There are still persistent dilated loops of small bowel. This may be secondary to ileus or partia l small bowel obstruction. Complete obstruction is not present because contrast has passed throughout the colon. 2. Diverticulosis. 3. Bilateral renal cysts. 4. Abdominal aortic aneurysm. POS: CARYNDI
--- NOTE | 2019-10-15 12:07 | PDOC.HOSPP ---
- Subjective Encounter Date: 10/15/19 Encounter Time: 12:00 Subjective: f/u for bowel obstruction presumed large bowel etiology given squamous cell carcinoma of the rectum. Plan for potential diverting colostomy and initiate TPN for nutrition and optimization of electrolytes. - Objective Vital Signs & Weight: Vital Signs (12 hours) Temp Pulse Resp BP Pulse Ox 10/15/19 11:00 97.7 F 87 20 125/80 96 10/15/19 09:00 96 10/15/19 08:00 97.9 F 81 20 130/74 96 Weight Admit Weight 152 lb 1.903 oz Weight 152 lb 1.903 oz I&O: 10/14/19 10/15/19 10/16/19 06:59 06:59 06:59 Intake Total 3000 Output Total 2130 Balance 870 Result Diagrams: 10/14/19 20:34 10/15/19 05:50 Additional Labs: Accuchecks 10/15/19 10/15/19 10/14/19 11:33 04:59 21:26 POC Glucose 138 H 125 H 135 H 10/14/19 10/14/19 18:08 11:41 POC Glucose 120 H 158 H Microbiology 10/07/19 19:54 Venous blood - Right Arm Blood Culture - Final NO GROWTH IN 5 DAYS 10/07/19 19:54 Venous blood - Left Arm Blood Culture - Final NO GROWTH IN 5 DAYS 10/07/19 16:35 Urine Straight Catheter Urine Culture - Final NO GROWTH AT 36 HOURS Laboratory Tests 10/07/19 10/08/19 10/08/19 14:06 04:56 04:56 WBC 11.2 H 8.7 Hgb 13.0 L 11.6 L Sodium 139 Potassium 3.7 10/13/19 10/13/19 15:03 15:03 WBC 3.6 L Hgb 13.4 L Sodium 155 H Potassium 2.9 L* Radiology Reviewed by me: Yes (CT abd/pel - persistent small bowel dilation) Hospitalist ROS - Medication Medications: Active Medications Generic Name Dose Route Start Last Admin Trade Name Freq PRN Reason Stop Dose Admin Hydralazine HCl 10 mg 10/11/19 11:28 10/11/19 17:39 Apresoline SLOW IVP 10 mg Q4H PRN Administration SBP>150 Dextrose/Water 1,000 mls @ 100 mls/hr 10/15/19 11:15 10/15/19 11:15 D5w IV Not Given .Q10H [facility] Dextrose/Water 1,000 mls @ 40 mls/hr 10/15/19 11:15 10/15/19 11:16 D5w IV Not Given .Q24H TAMMY Lactulose 20 gm 10/09/19 13:00 10/15/19 09:28 Lactulose PER TUBE Not Given QID [facility] Morphine Sulfate 2 mg 10/07/19 17:30 10/14/19 10:16 Morphine SLOW IVP 2 mg Q4H PRN Administration Pain Ondansetron HCl 4 mg 10/14/19 19:58 10/14/19 20:04 Zofran IVP 4 mg Q6H PRN Administration Nausea/Vomiting Sodium Chloride 10 ml 10/07/19 21:00 10/15/19 09:30 Flush - Normal Saline IVF Not Given Q12HR TAMMY - Exam General Appearance: ill appearing General - other findings: lethargic, opens eyes briefly to name Eye: PERRL, anicteric sclera ENT: normocephalic atraumatic, no oropharyngeal lesions, dry oral mucosa Neck: supple, symmetric, no JVD, no thyromegaly Heart: RRR, no gallops, no rubs, normal peripheral pulses Heart - other findings: S1, S2 Respiratory: CTAB, no wheezes, no rales, no ronchi Gastrointestinal: tender to palpation, distended, diminished bowl sounds, voluntary guarding Extremities: no cyanosis, no clubbing, no edema Skin: normal turgor, no lesions Neurological: cranial nerve grossly intact Musculoskeletal: generalized weakness Psychiatric: oriented to person, flat affect, somnolent, lethargic Hosp A/P (1) Large bowel obstruction Code(s): K56.609 - UNSP INTESTNL OBST, UNSP TO PARTIAL VERSUS COMPLETE OBST Status: Acute Plan: Due to anal carcinoma, plan for potential diverting colostomy, ? conservative mgmt and palliation (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, UNSPECIFIED Status: Chronic Plan: Unable to receive current treatment due to bowel obstruction, poor functional state (3) Acute kidney injury Code(s): N17.9 - ACUTE KIDNEY FAILURE, UNSPECIFIED Status: Acute Plan: Improved, continue IVF's and free-H2O, avoid nephrotoxic meds and limit contrast exposure (4) Hypernatremia Code(s): E87.0 - HYPEROSMOLALITY AND HYPERNATREMIA Status: Acute Plan: Mild improvement, continue free-H2O, D5W IVF (5) Hypokalemia Code(s): E87.6 - HYPOKALEMIA Status: Acute Plan: KCL supplementation, serial K+ monitoring - Plan PT/OT, social professionals, DVT proph w/SCDs Consults: Palliative Care Clinically declining Continue supportive mgmt Continue D5W IVF's Start TPN once PICC line placed Palliative measures KCL supplementation Code Status: DNAR AM lab: BMP
--- NOTE | 2019-10-15 15:30 | SPC ---
Exam: Right upper extremity PICC line with ultrasound guidance HISTORY: TPN Exposure 0.5 minutes, 2083 mg/sq cm FINDINGS: Successful right upper extremity PICC line placement. Distal tip is in the right atrium. Du al lumen 5 Polish catheter flushes and aspirates without difficulty. 40 cm trim length TECHNIQUE: Consent obtained to perform a right upper extremity PICC line with ultrasound guidance. [facility] was prepped and draped in a sterile fashion. 1% lidocaine, buffered with sodium bicarbonate was used for local anesthesia. Under sonographic guidance, a puncture needle was used to access the b asilic vein. A 0.018 guidewire was advanced through the needle to the level of the right atrium. Tract dilatation was performed. A dual lumen 5 Polish catheter was advanced over the wire. Wire is re moved. Both lumens flush and aspirate without difficulty. 40 cm trim length. No immediate or postprocedural complications IMPRESSION: Technically successful right upper extremity PICC line placement with ultrasound guidance
--- NOTE | 2019-10-15 15:37 | CON ---
DATE OF CONSULTATION: 10/15/2019 REQUESTING PHYSICIAN: Dr. Massey. REASON FOR CONSULTATION: Nutritional recommendations, question PEG tube versus other. HISTORY OF PRESENT ILLNESS: Andrews Espino is a very pleasant, but unfortunate 89-year-old gentleman. He has a history of recurrent bladder cancer, diabetes, hypertension, and hyperlipidemia. In April 2019, he presented with rectal bleeding and some change in bowel habits. My colleague, Dr. Humphries performed colonoscopy and this demonstrated an anal squamous cell carcinoma extending 10 cm up into the rectum with significant induration and contraction of the rectal diameter in this area. Imaging demonstrated pelvic lymphadenopathy and the patient was felt to have localized invasive disease, stage IIIC, T3, N1. He was seen by Dr. Gonzalez and Dr. Dumont, who recommended chemotherapy and radiation therapy. He has completed his radiation, still undergoing chemotherapy. He was admitted to the hospital 1 week ago with symptoms of progressive abdominal distention, nausea, and vomiting as well as worsening constipation. Notably, there has been no significant abdominal pain complaint with this. Imaging demonstrated significant obstructive findings with essentially dilation throughout the entire small bowel. He has had a nasogastric tube, which has maintained high output through this admission, though evidently he has had a few bowel movements here. He was evaluated by Dr. Velasco. Small bowel follow-through was essentially aborted due to worsening of nausea and vomiting. Plain film imaging did not initially show contrast in the colon, but a CT of the abdomen and pelvis today demonstrates the contrast has reached all the way to the level of the rectum, and it is thought that this likely all represents obstruction of the rectal outlet. We are consulted for consideration of possible PEG tube or other recommendations for nutrition. The patient is set to be started on TPN today by the primary service at the recommendation of surgical service. Diverting colostomy is being considered. The patient himself is really unable to give me significant details of his history, but he is able to answer questions about current symptoms with the yes or no. REVIEW OF SYSTEMS: Full review of systems including constitutional; head, eyes, ears, nose, and throat; GI; ; cardiovascular; respiratory; musculoskeletal; neurologic systems is negative except as noted in the HPI. 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 ALLERGIES: NO KNOWN DRUG ALLERGIES. OUTPATIENT MEDICATIONS: 1. Megace 40 mg daily. 2. Imodium p.r.n. 3. Flomax 0.4 mg daily. 4. Tramadol 50 mg q.i.d. FAMILY HISTORY: Noncontributory. PHYSICAL EXAMINATION: VITAL SIGNS: Temperature 97.7, pulse 87, blood pressure 123/77, 96% oxygen saturation on room air. GENERAL: Elderly frail 89-year-old man, sitting up in bed comfortably, in no distress. MENTAL: He is a bit confused. He is able to answer yes or no questions with frequent redirection. He is not able to give any details of his history. SKIN: No jaundice. No rashes that were palpable. EYES: No scleral icterus. Extraocular movements are intact. ENT: Nasogastric tube to the right naris, suctioning out some yellow bilious fluid. HEART: Regular rate and rhythm. LUNGS: Clear to auscultation bilaterally. ABDOMEN: Distended, tympanitic to percussion. Bowel sounds are essentially absent. Nontender to palpation throughout. EXTREMITIES: No peripheral edema. VESSELS: Radial pulses 2+ bilaterally. NEURO: Cranial nerves 2 through 12 intact bilaterally. Moves all extremities. LABORATORY DATA: WBC 5.9, hemoglobin 15.4, platelets 159. Sodium 152, potassium 3.3, BUN 36, creatinine 0.96, glucose 138, total bilirubin 0.3, alkaline phosphatase 88, AST 9, ALT 7, lipase 4. IMAGING STUDIES: CT of the abdomen and pelvis from earlier today demonstrates stable circumferential thickening in the lower rectum with contrast extending down to this area of thickening. There is persistently dilated loops of small bowel, but with contrast passing throughout the colon. Small bowel loops measure up to 3.8 cm in size. There is no focal liver lesions or biliary dilation noted. 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 ASSESSMENT AND PLAN: 1. Squamous cell carcinoma of the anus, extending into the rectum, status post radiation and chemotherapy. 2. Bowel obstruction secondary to rectal outlet obstruction from his known rectal cancer. I think today's abdominal CT findings are conclusive that his obstructive process is at the area of his known anorectal cancer, and that this does not represent any more proximal small bowel obstructive process or ileus. In this context, there is no indication for PEG placement. He is being started on TPN and I agree with this for now. Surgery is following, and I suspect he is going to ultimately need a diverting colostomy. No other specific recommendations from a GI standpoint at this time. Please call back anytime with questions or concerns. Job ID: [id number]
[2019-10-15 17:12] LABS: INR-International Normal Ratio 1.2; PTT 30.8 SEC (22.9-36.1); Prothrombin Time 14.9 SEC (12.0-14.7)
[2019-10-15] MEDS ORDERED: SODIUM ACETATE IV SCH ×3 (22:00→23:30)
[2019-10-15] MEDS ORDERED: FAT EMULSION IV SCH ×3 (22:00→23:30)
[2019-10-15] MEDS ORDERED: [UNRECOGNIZED DRUG - OTHER] IV SCH ×3 (22:00→23:30)
[2019-10-15] MEDS ORDERED: SODIUM CHLORIDE IV SCH ×3 (22:00→23:30)
--- NOTE | 2019-10-15 22:43 | PRG ---
DATE OF SERVICE: 10/15/2019 SUBJECTIVE: The patient was seen this evening, lying in bed, asleep with no signs of acute distress. Nursing reported no acute event. NG tube was not working appropriately. It was flushed at that time, and the patient's NG tube was working appropriately before leaving the room. OBJECTIVE: VITAL SIGNS: Temperature 98.1, pulse 79, respirations 16, oxygen saturation 94% on room air, blood pressure 122/74. GENERAL: An ill-appearing elderly male, lying in bed with no signs of acute distress. PULMONARY: Equal chest rise and fall. No signs of acute respiratory distress. ASSESSMENT: 1. Persistent acute small-bowel obstruction, likely secondary to large-bowel obstruction. 2. Acute hypernatremia and hyperkalemia. 3. Acute hypokalemia. PLAN: Continue n.p.o. Continue NG tube to suction. TPN is to start tonight through the PICC line at 70 an hour. At that time, we would decrease the D5W from 100 an hour to 40 an hour. These 2 fluids will total the patient's maintenance fluid requirements. Trauma Surgery to re-evaluate the patient tomorrow with Dr. Velasco. We will make further recommendations at that time. Job ID: [id number]
[2019-10-15] MEDS: Famotidine/PF 20 mg/2ml Vial SLOW IVP SCH (23:11)
[2019-10-15] MEDS: Enoxaparin Sodium 40 MG/0.4 ML SYRINGE SC SCH (23:11)
[2019-10-16] MEDS: Famotidine/PF 20 mg/2ml Vial SLOW IVP SCH ×2 (08:17→21:14)
[2019-10-16] MEDS: Dextrose 5% in Water 1,000 ML IV SCH (08:18)
[2019-10-16 08:19] LABS: ALT (SGPT) 11 U/L (8-55); AST (SGOT) 16 U/L (5-34); Albumin 2.5 g/dL (3.4-4.8); Alkaline Phosphatase 68 U/L (40-110); Anion Gap 10 mmol/L (10-20); BUN (Urea Nitrogen) 35 mg/dL (8.4-25.7); Bilirubin, Total 0.8 mg/dL (0.2-1.2); Calc. Creatinine Clearance 53 mL/min (70-130); Calcium 8.4 mg/dL (7.8-10.44); Carbon Dioxide 18 mmol/L (23-31); Chloride 125 mmol/L (98-107); Estimated GFR-MDRD 75; Globulin 2.3 g/dL (2.4-3.5); Glucose 156 mg/dL (83-110); Magnesium 2.3 mg/dL (1.6-2.6); Potassium 3.4 mmol/L (3.5-5.1); Protein, Total 4.8 g/dL (5.8-8.1); Sodium 150 mmol/L (136-145)
[2019-10-16 08:21] LABS: Phosphorus 2.5 mg/dL (2.3-4.7)
[2019-10-16 08:47] LABS: #Lymphocytes 0.9 thou/uL (1.20-3.40); #Monocytes 0.4 thou/uL (0.11-0.59); #Neutrophils 2.3 thou/uL (1.40-6.50); %Basophils 0.5 % (0.0-1.0); %Eosinophils 0.8 % (0.0-10.0); %Lymphocytes 25.4 % (21.0-51.0); %Monocytes 10.6 % (0.0-10.0); %Neutrophils 62.7 % (42.0-75.0); Hemoglobin 12.7 g/dL (14.0-18.0); Mean Corpuscular HGB CONC 31.5 g/dL (32.0-36.0); Mean Corpuscular Hemoglobin 29.8 pg (27.0-31.0); Mean Corpuscular Volume 94.7 fL (78.0-98.0); Mean Platelet Volume 8.7 fL (7.4-10.4); Platelet Count 118 thou/uL (130-400); Platelet Morphology Comment Appears Decreased; RBC Distribution Width 15.1 % (11.5-14.5); RBC Morphology Normal; Red Blood Cell (RBC) Count 4.26 mill/uL (4.70-6.10); White Blood Cell (WBC) Count 3.7 thou/uL (4.8-10.8)
[2019-10-16] MEDS ORDERED: Potassium Phosphate 30 MMOL in Sodium Chloride 0.9% 500 ML IVPB SCH (09:00)
[2019-10-16] MEDS ORDERED: Fentanyl 250 MCG/5 ML VIAL ONE (10:08)
[2019-10-16] MEDS ORDERED: SUGAMMADEX SODIUM 500 MG/5 ML VIAL ONE (11:29)
[2019-10-16] MEDS ORDERED: Glycopyrrolate 0.2 MG/ML 5 ML SYRINGE ONE (11:37)
[2019-10-16] MEDS ORDERED: EPHEDRINE 25 MG/5 ML SYRINGE ONE ×2 (11:37→12:25)
[2019-10-16] MEDS ORDERED: PHENYLEPHRINE-NS 100 MCG/ML 10 ML SYRINGE ONE (11:37)
[2019-10-16] MEDS ORDERED: Dexamethasone 20 MG/5 ML VIAL ONE (11:37)
[2019-10-16] MEDS ORDERED: PROPOFOL 200 MG/20 ML VIAL ONE (11:37)
[2019-10-16] MEDS ORDERED: Rocuronium Bromide 10 MG/ML (10ML VIAL) ONE (11:37)
[2019-10-16] MEDS ORDERED: Ondansetron PF 4 MG/2 ML Vial ONE (11:37)
[2019-10-16] MEDS ORDERED: Lidocaine 1% PF 5 ML VIAL ONE (11:37)
--- NOTE | 2019-10-16 11:48 | PDOC.HOSPP ---
- Subjective Encounter Date: 10/16/19 Encounter Time: 11:00 Subjective: f/u for large bowel obstruction with planned diverting colostomy today. Receiving TPN for nutritional support. - Objective Vital Signs & Weight: Vital Signs (12 hours) Temp Pulse Resp BP Pulse Ox 10/16/19 08:00 99 10/16/19 07:48 97.8 F 81 20 138/77 99 10/16/19 04:00 98.2 F 86 18 143/83 H 97 10/16/19 00:00 97.7 F 81 16 124/75 96 Weight Admit Weight 152 lb 1.903 oz Weight 152 lb 1.903 oz I&O: 10/15/19 10/16/19 10/17/19 06:59 06:59 06:59 Intake Total 3000 1829 Output Total 2130 1500 Balance 870 329 Result Diagrams: 10/19/19 05:30 10/19/19 05:30 Additional Labs: Accuchecks 10/16/19 10/15/19 10/15/19 04:16 19:49 16:18 POC Glucose 168 H 137 H 134 H Microbiology 10/07/19 19:54 Venous blood - Right Arm Blood Culture - Final NO GROWTH IN 5 DAYS 10/07/19 19:54 Venous blood - Left Arm Blood Culture - Final NO GROWTH IN 5 DAYS 10/07/19 16:35 Urine Straight Catheter Urine Culture - Final NO GROWTH AT 36 HOURS Laboratory Tests 10/07/19 10/08/19 10/08/19 14:06 04:56 04:56 WBC 11.2 H 8.7 Hgb 13.0 L 11.6 L Sodium 139 Potassium 3.7 10/13/19 10/13/19 15:03 15:03 WBC 3.6 L Hgb 13.4 L Sodium 155 H Potassium 2.9 L* Hospitalist ROS - Medication Medications: Active Medications Generic Name Dose Route Start Last Admin Trade Name Freq PRN Reason Stop Dose Admin Enoxaparin Sodium 40 mg 10/15/19 21:00 10/15/19 23:11 Lovenox SC 40 mg 2100 TAMMY Administration Famotidine 20 mg 10/15/19 21:00 10/16/19 08:17 Pepcid SLOW IVP 20 mg BID TAMMY Administration Hydralazine HCl 10 mg 10/11/19 11:28 10/11/19 17:39 Apresoline SLOW IVP 10 mg Q4H PRN Administration SBP>150 Dextrose/Water 1,000 mls @ 40 mls/hr 10/15/19 11:15 10/16/19 08:18 D5w IV 1,000 mls .Q24H TAMMY Administration Fat Emulsion Intravenous 250 2,369.804 mls @ 70 mls/hr 10/15/19 23:30 23:21 ml/ Sodium Acetate 40 meq/ IV 10/16/19 22:00 2,369.804 mls Sodium Chloride 10 meq/ Sodium INF TAMMY Administration Phosphate 26.67 meq/ Potassium Acetate 50 meq/ Potassium Chloride 30 meq/ Potassium Phosphate 10 mmol/ Calcium Gluconate 15 meq/ Magnesium Sulfate 15 meq/ Multivitamins 10 ml/ Chromium/ Copper/Manganese/Seleni/Zn 1 ml/ Amino Acids/Dextrose Potassium Phosphate 30 mmol/ 510 mls @ 83.3 mls/hr 10/16/19 09:00 10/16/19 09 :32 Sodium Chloride IVPB 10/16/19 15:08 510 mls 0900 TAMMY Administration Morphine Sulfate 2 mg 10/07/19 17:30 10/14/19 10:16 Morphine SLOW IVP 2 mg Q4H PRN Administration Pain Ondansetron HCl 4 mg 10/14/19 19:58 10/14/19 20:04 Zofran IVP 4 mg Q6H PRN Administration Nausea/Vomiting Sodium Chloride 10 ml 10/07/19 21:00 10/16/19 08:17 Flush - Normal Saline IVF 10 ml Q12HR TAMMY Administration - Exam General Appearance: ill appearing General - other findings: lethargic, agitated Eye: PERRL, anicteric sclera ENT: normocephalic atraumatic, no oropharyngeal lesions Neck: supple, symmetric, no JVD, no thyromegaly Heart: RRR, no gallops, no rubs, normal peripheral pulses Heart - other findings: S1, S2 Respiratory: CTAB, no wheezes, no rales, no ronchi, normal chest expansion, tachypneic Gastrointestinal: tender to palpation, distended, diminished bowl sounds, voluntary guarding Extremities: no cyanosis, no clubbing, no edema Skin: normal turgor, no lesions Neurological: no new deficit Musculoskeletal: generalized weakness Psychiatric: oriented to person Hosp A/P (1) Large bowel obstruction Code(s): K56.609 - UNSP INTESTNL OBST, UNSP TO PARTIAL VERSUS COMPLETE OBST Status: Acute Plan: Diverting colostomy today, continue TPN/IVF's (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, UNSPECIFIED Status: Chronic Plan: s/p XRT and chemotherapy, obstructive mass/stricture on CT imaging (3) Acute kidney injury Code(s): N17.9 - ACUTE KIDNEY FAILURE, UNSPECIFIED Status: Acute Plan: Resolved, avoid nephrotoxic meds and limit contrast exposure (4) Hypernatremia Code(s): E87.0 - HYPEROSMOLALITY AND HYPERNATREMIA Status: Acute Plan: Slow improvement with increase free-H2O administration, serial Na+ monitoring (5) Hypokalemia Code(s): E87.6 - HYPOKALEMIA Status: Acute Plan: Persistent, KCL supplementation - Plan PT/OT, social sciences professor, speech therapy, DVT proph w/SCDs Consults: Palliative Care Clinically declining Continue supportive mgmt Continue D5W IVF's Continue TPN Palliative measures KCL supplementation Code Status: DNAR AM lab: BMP, CBC, Mg++, PO3
[2019-10-16] MEDS ORDERED: SUGAMMADEX SODIUM 200 MG/2 ML VIAL ONE (12:25)
[2019-10-16] MEDS ORDERED: Ondansetron HCl/PF 4 MG/2 ML Vial IVP PRN (12:50)
[2019-10-16] MEDS ORDERED: Meperidine HCl/PF 25 MG/ML VIAL SLOW IVP PRN (12:50)
[2019-10-16] MEDS ORDERED: Promethazine HCl 25 MG/ML VIAL IM PRN (12:50)
[2019-10-16] MEDS ORDERED: Ketorolac Tromethamine 30 MG/ML VIAL IVP PRN (12:50)
[2019-10-16] MEDS ORDERED: Promethazine HCl 25 MG/ML VIAL SLOW IVP PRN (12:50)
--- NOTE | 2019-10-16 12:51 | OP ---
DATE OF PROCEDURE: 10/16/2019 PREOPERATIVE DIAGNOSIS: Acute small and large bowel obstruction secondary to squamous cell cancer of the rectum and anus. POSTOPERATIVE DIAGNOSIS: Acute small and large bowel obstruction secondary to squamous cell cancer of the rectum and anus. PROCEDURE PERFORMED: Diverting loop transverse colostomy. ANESTHESIA: General endotracheal. ESTIMATED BLOOD LOSS: Less than 20 mL. FLUIDS GIVEN: 700 mL of crystalloids. COUNTS: Sponge and instrument counts were verified as correct x2. COMPLICATIONS: None apparent at the time of operation. INDICATIONS FOR OPERATION: An 89-year-old man with history of squamous cell carcinoma of the anus and rectum. The patient is status post chemoradiation therapy. He has developed narrowing of the rectum causing acute small-bowel obstruction secondary to large bowel obstruction. This has failed conservative management. The patient was brought to the operating room for diverting loop transverse colostomy. DESCRIPTION OF PROCEDURE: Informed consent was obtained from the patient and his daughter, power of contracts attorney. Following this, the patient was brought to the operating room and placed in supine position. General anesthesia was initiated per Anesthesia Department. Following which, the abdomen was sterilely prepped and draped in usual fashion. A small mini-laparotomy incision was made approximately 5 cm below the xiphoid process using a 10 scalpel. Incision was carried through subcutaneous tissues and maintained hemostasis using cautery. Fascia was incised along the line of the incision. Peritoneum was grasped x2 with hemostats. The peritoneal cavity was sharply entered using Metzenbaum scissors. Castillo retractors were put in place to gain exposure. Omentum was identified. This was reflected and a loop of the transverse colon was brought into the operative field, secured with a bridge. The fascia was approximated around the loop of the transverse colon using interrupted sutures of 0 Vicryl. Omentum was returned to the peritoneal cavity. A loop of the transverse colon segment was opened along the tenia using Metzenbaum scissors. A functional Prema colostomy was then perfected using interrupted sutures of 3-0 Vicryl. Next, an ostomy appliance was put in place. The patient tolerated the operation without any apparent complication and was returned to the recovery room in satisfactory condition. Job ID: [id number]
[2019-10-16] MEDS: Morphine 2 MG/ML SYRINGE SLOW IVP PRN ×2 (14:23→18:06)
[2019-10-16] MEDS: Acetaminophen 500 MG TAB PER TUBE SCH (18:06)
[2019-10-16] MEDS ORDERED: Morphine 4 MG/ML VIAL SLOW IVP PRN (20:38)
[2019-10-16] MEDS: Enoxaparin Sodium 40 MG/0.4 ML SYRINGE SC SCH (21:14)
--- NOTE | 2019-10-16 21:43 | PDOC.EVN ---
Event Note - Event Note Event Note: Nurse paged regarding low BP and altered mental status. Trauma PA was in the room while they were taking vitals and ordered a stat bolus of LR. I spoke with ANABELA Lemus and she stated she was ordering the sepsis protocol on him and if he did not perk up, would transfer to CCU. He is post-op today from a colectomy to resolve a obstruction. Will continue to monitor, asked Mariely to let us know if she needed anything from the hospitalist service ethan.
[2019-10-16] MEDS: Piperacillin/Tazobactam 3.375 GM in Sodium Chloride 0.9% 100 ML IVPB SCH (21:54)
--- NOTE | 2019-10-16 21:55 | RAD ---
PORTABLE CHEST: 10/16/19 HISTORY: Mental status change. COMPARISON: 08/28/16. Exam is suboptimal due to positioning and portable projection. I cannot exclude left basilar infiltra te. The left hemidiaphragm is obscured. There is cardiomegaly and vascular congestion. NG tube passes through the EG junction. Pacemaker lead s are again noted. IMPRESSION: Question new left basilar infiltrate and effusion. POS: AGW
[2019-10-16] MEDS ORDERED: [UNRECOGNIZED DRUG - OTHER] IV SCH (22:00)
[2019-10-16] MEDS ORDERED: SODIUM CHLORIDE IV SCH (22:00)
[2019-10-16] MEDS ORDERED: SODIUM ACETATE IV SCH (22:00)
[2019-10-16] MEDS ORDERED: FAT EMULSION IV SCH (22:00)
[2019-10-16 22:32] LABS: Lactic Acid 2.6 mmol/L (0.5-2.2)
[2019-10-16 22:35] LABS: Hemoglobin 11.5 g/dL (14.0-18.0); Mean Corpuscular HGB CONC 32.3 g/dL (32.0-36.0); Mean Corpuscular Hemoglobin 30.1 pg (27.0-31.0); Mean Corpuscular Volume 93.4 fL (78.0-98.0); Mean Platelet Volume 8.4 fL (7.4-10.4); Platelet Count 105 thou/uL (130-400); Red Blood Cell (RBC) Count 3.82 mill/uL (4.70-6.10); White Blood Cell (WBC) Count 6.6 thou/uL (4.8-10.8)
[2019-10-16 22:45] LABS: Anion Gap 14 mmol/L (10-20); BUN (Urea Nitrogen) 37 mg/dL (8.4-25.7); Calc. Creatinine Clearance 39 mL/min (70-130); Calcium 8.2 mg/dL (7.8-10.44); Carbon Dioxide 18 mmol/L (23-31); Chloride 124 mmol/L (98-107); Estimated GFR-MDRD 52; Glucose 184 mg/dL (83-110); Magnesium 2.1 mg/dL (1.6-2.6); Phosphorus 3.9 mg/dL (2.3-4.7); Potassium 3.1 mmol/L (3.5-5.1); Sodium 153 mmol/L (136-145)
[2019-10-16] MEDS ORDERED: Hydrocortisone Sod Succ/PF 100 mg/2 ml Vial IVP SCH (22:45)
[2019-10-16 22:51] LABS: Band 42 % (5-11); Lymphocytes 10 % (21-51); MDiff Complete? YES; Monocytes 8 % (0-10); Neutrophil 40 % (42-75); Platelet Morphology Comment Appears Decreased
[2019-10-16 23:02] LABS: Bacteria/HPF 1+ HPF (None Seen); Bilirubin Negative (Negative); Blood, Urine 1+ (Negative); Clarity Clear (Clear); Glucose, Urine (Dipstick) Normal (Negative); Leukocyte Negative Leu/uL (Negative); Nitrite Negative (Negative); Protein, Urine (Dipstick) 30 mg/dL (Neg-Trace); Squamous Epithelial 0-3 HPF (0-3); Urobilinogen Normal mg/dL (Less than 2)
[2019-10-16] MEDS ORDERED: Lactated Ringer's 1,000 ML IV SCH ×2 (23:15)
[2019-10-16] MEDS ORDERED: Norepinephrine 8 MG/0.9% NS 250 ML IVPB SCH (23:15)
[2019-10-16] MEDS ORDERED: Potassium Phosphate 15 MMOL in Sodium Chloride 0.9% 250 ML 250 ML IVPB SCH (23:15)
[2019-10-16] MEDS ORDERED: Norepinephrine 8 MG in Dextrose 5% in Water 242 ML IVPB PRN (23:20)
[2019-10-17] MEDS ORDERED: Dextrose 5% in Water 1,000 ML IV SCH ×2 (00:13→12:00)
[2019-10-17] MEDS: FAT EMULSION IV SCH ×3 (00:30→21:49)
[2019-10-17] MEDS: [UNRECOGNIZED DRUG - OTHER] IV SCH ×2 (00:30→12:32)
[2019-10-17] MEDS: SODIUM ACETATE IV SCH ×2 (00:30→12:32)
[2019-10-17] MEDS: POTASSIUM ACETATE IV SCH ×3 (00:30→21:49)
[2019-10-17 00:38] LABS: Troponin I 0.092 ng/mL (< 0.028)
[2019-10-17] MEDS ORDERED: Dextrose 5 %-0.45 % NaCl 1,000 ML IV SCH (01:00)
[2019-10-17] MEDS: Acetaminophen 500 MG TAB PER TUBE SCH ×5 (02:06→23:42)
--- NOTE | 2019-10-17 03:02 | PRG ---
DATE OF SERVICE: 10/16/2019 SUBJECTIVE: The patient was seen today during evening rounds. He was postop day 0 after diverting loop transverse colostomy due to a large bowel obstruction, also causing a small bowel obstruction. At the time of my evaluation, the patient was not as alert as the day before. His GCS was 12 at that time. Vital signs were collected by the nurse during my evaluation, which demonstrated the patient was tachycardic with a pulse in the one teens and hypotensive with systolic blood pressures in the 70s. At that time, sepsis workup was initiated. He received 1 L of LR and 100 mg of hydrocortisone. After fluid resuscitation and laboratory studies, the patient's systolic blood pressure had only improved into the 80s. Subsequently, transfer to the CCU was initiated. The patient also received a Felipe, chest x-ray, and EKG along with lab work. At that time, a second liter of LR was also initiated, which completed right around the time the patient was eventually moved to the CCU. At that time, the patient's systolic blood pressures had improved into the 100s and his heart rate was in the 90s. Mentation had also slightly improved from about a GCS of 12 to about a GCS of 14. He was still transferred at that time as it is likely that the patient has developing a sepsis and will need further resuscitation and/or pressors through the evening. He continues to maintain his airway at this time. OBJECTIVE: VITAL SIGNS: Temperature 97.9, pulse 90, respirations 28, oxygen saturation 100% on room air, and blood pressure 109/62. GENERAL: Elderly male, lying in bed with no signs of acute respiratory distress. CARDIAC: Regular rate and rhythm. Paced rhythm. PULMONARY: Equal chest rise and fall. Clear breath sounds bilaterally. No signs of acute respiratory distress. ABDOMEN: Soft, appropriately tender to palpation, and nondistended. There is a colostomy, which is working appropriately. EXTREMITIES: 2+ pulses in all extremities. Gross motor and sensation intact. Nursing noted left lower extremity was slightly cooler than the right. Pulses are equal, however. It is noted that the patient's left lower extremity is shortened more than normal. There is no history of previous hip fracture or recent trauma. NEUROLOGIC: GCS is 14 -1 for eyes. LABORATORY FINDINGS: White count 6.6, hemoglobin 11.5, hematocrit 35.7, platelets 105. Sodium 153, potassium 3.1, chloride 124, bicarb 18, BUN 37, creatinine 1.31, glucose 184. Lactic acid 2.7, phosphorus 3.9, magnesium 2.1. Troponin 0.092. Cortisol 31.4. UA is positive for bacteria, white blood cells. DIAGNOSTIC FINDINGS: Chest x-ray completed this evening demonstrates a questionable new left basilar infiltrate and effusion. ASSESSMENT: 1. Postop day #0, status post diverting loop transverse colostomy due to large bowel obstruction subsequently causing also an acute small-bowel obstruction. This is due to the patient's known squamous cell cancer of the rectum and anus. 2. Acute hyponatremia, worsening. 3. Acute hypokalemia. 4. Acute kidney injury. 5. Hypotension, likely due to sepsis, etiology unknown, but likely abdominal source. 6. History of diabetes, hypertension, pacemaker, bladder cancer, post radiation and chemo. PLAN: The patient's TPN was discontinued and his D5W was increased from 40 to 110 an hour, this is his maintenance rate. We will follow up his hypernatremia and hyperchloremia in the morning. The patient was started on Zosyn this evening, we will follow that up. Also, we will follow up blood, urine, and sputum cultures. Potassium and phosphorus replacement today. Closely monitoring urinary output for goal of greater than or equal to 35 mL an hour, map goal of 65 or better. If the patient becomes hypotensive again, we will consider albumin or starting IV pressors. Continue NG tube to low intermittent wall suction. We will perform an x-ray of the left hip to further evaluate left lower extremity shortening, which is unusual for him. Dr. Velasco was updated about this patient and we will contact him if he becomes further unstable. Job ID: [id number]
[2019-10-17 04:05] LABS: Band 48 % (5-11); Hemoglobin 9.8 g/dL (14.0-18.0); Lactic Acid 1.9 mmol/L (0.5-2.2); Lymphocytes 9 % (21-51); MDiff Complete? YES; Mean Corpuscular HGB CONC 32.4 g/dL (32.0-36.0); Mean Corpuscular Hemoglobin 29.8 pg (27.0-31.0); Mean Corpuscular Volume 92.1 fL (78.0-98.0); Mean Platelet Volume 9.1 fL (7.4-10.4); Metamyelocyte 1 % (0-0); Monocytes 4 % (0-10); Neutrophil 38 % (42-75); Platelet Count 86 thou/uL (130-400); Platelet Morphology Comment Appears Decreased
[2019-10-17 04:10] LABS: Anion Gap 11 mmol/L (10-20); BUN (Urea Nitrogen) 34 mg/dL (8.4-25.7); Calc. Creatinine Clearance 42 mL/min (70-130); Carbon Dioxide 20 mmol/L (23-31); Chloride 122 mmol/L (98-107); Estimated GFR-MDRD 57; Glucose 211 mg/dL (83-110); Phosphorus 4.6 mg/dL (2.3-4.7); Sodium 150 mmol/L (136-145)
[2019-10-17] MEDS: Piperacillin/Tazobactam 3.375 GM in Sodium Chloride 0.9% 100 ML IVPB SCH ×4 (05:42→23:42)
[2019-10-17] MEDS: Morphine 2 MG/ML SYRINGE SLOW IVP PRN ×3 (06:40→13:46)
[2019-10-17] MEDS: Insulin Regular 300 UNITS/3 ML VIAL SC PRN ×2 (06:45→17:15)
[2019-10-17 06:46] LABS: Troponin I 0.092 ng/mL (< 0.028)
[2019-10-17] MEDS ORDERED: Budesonide 0.5 MG/2 ML NEB ONE (07:22)
[2019-10-17 08:52] LABS: Anion Gap 11 mmol/L (10-20); BUN (Urea Nitrogen) 32 mg/dL (8.4-25.7); Calc. Creatinine Clearance 41 mL/min (70-130); Carbon Dioxide 20 mmol/L (23-31); Chloride 122 mmol/L (98-107); Estimated GFR-MDRD 56; Glucose 197 mg/dL (83-110); Phosphorus 4.1 mg/dL (2.3-4.7); Sodium 150 mmol/L (136-145)
--- NOTE | 2019-10-17 09:02 | RAD ---
LEFT HIP TWO VIEWS: 10/17/2019 HISTORY: Left lower extremity shortening. COMPARISON: None. FINDINGS: Moderate degenerative change of the left hip joint noted with superior joint space narrowing as well as subchondral sclerosis of the acetabular roof and mild lateral acetabular osteophyte formation. The re is no acute fracture or evidence of dislocation. There are gas-filled, distended small bowel loops within the left lower quadrant, only partially imaged. IMPRESSION: 1. Degenerative change of the left hip with no acute fracture or dislocation. 2. Small bowel gaseous distention in the left lower quadrant. POS: [facility]
--- NOTE | 2019-10-17 09:05 | RAD ---
FRONTAL RADIOGRAPH CHEST: 10/17/2019 HISTORY: Increased heart rate. COMPARISON: 10/16/19 FINDINGS: Stable nasogastric tube, right upper extremity PICC and left-sided dual-lead transvenous pacing devic e. Stable pulmonary vascular congestion with mild central linear density in the right lung. Stable parker zy nonspecific basilar air space disease on the left with probable small bilateral pleural effusions. IMPRESSION: No significant interval change. POS: [facility]
[2019-10-17] MEDS: Famotidine/PF 20 mg/2ml Vial SLOW IVP SCH (09:19)
[2019-10-17] MEDS ORDERED: Potassium Chloride 40 MEQ in Sodium Chloride 0.9% 250 ML 250 ML IVPB SCH (10:00)
[2019-10-17] MEDS ORDERED: Lactated Ringer's 1,000 ML IV SCH (11:30)
[2019-10-17] MEDS: Lactated Ringer's 1,000 ML IV SCH (12:23)
[2019-10-17] MEDS ORDERED: MD-Gastroview 120 ML BOT ONE (12:28)
--- NOTE | 2019-10-17 13:46 | PRG ---
DATE OF SERVICE: 10/17/2019 SUBJECTIVE: The patient was seen during morning rounds in the critical care unit. The patient is currently awake and alert and follows simple commands. The patient is oriented to person only at this time. The patient is postop day #1, status post diverting loop transverse colostomy due to large bowel obstruction and small- bowel obstruction. The patient was hypotensive overnight, was moved to the critical care unit, and was given IV fluids. The patient is currently on a Levophed drip at 3 mcg. The patient has had a total of 1715 mL of loose brown liquid out of his ostomy since it was placed. Dr. Velasco and Wound Care took down the ostomy site and the site appears viable. The patient has had 250 mL out of his NG tube since postop. The patient continues to have adequate urinary output. The patient's TPN was discontinued overnight while he was getting IV fluids for hydration. The patient was also mcginnis-cultured overnight. OBJECTIVE: VITAL SIGNS: Blood pressure 124/51, respirations 20, SpO2 of 100% on room air, pulse 80, temperature 97.7. GENERAL: Ill-appearing elderly male, lying in hospital bed, in no respiratory distress. The patient has dry mucous membranes. RESPIRATORY: Equal chest rise and fall. Bilateral breath sounds clear in the upper lobes. No wheezing, rales, or rhonchi. The patient has mildly diminished in the lower lobes. CARDIAC: Regular rate and regular rhythm, paced, 3/6 systolic murmur. ABDOMEN: Moderately distended, soft, mild tenderness to palpation. No peritoneal signs. Colostomy in place and working appropriately. EXTREMITIES: Moves all extremities. Distal pulses 2+ in all extremities. The patient has +1 pitting pedal edema in the right lower extremity. LABORATORY DATA: WBC 7.0, RBC 3.30, hemoglobin 9.8, hematocrit 30.4, platelets 86, bands 48. Sodium 150, potassium 3.0, chloride 122, carbon dioxide 20, anion gap 11, BUN 32, creatinine 1.23, estimated GFR 56, glucose 197, lactate 1.9, calcium 8.0 , phosphorus 4.1, magnesium 2.0. DIAGNOSTIC DATA: Chest x-ray, stable pulmonary vascular congestion with mild central linear densities in the right lung probable small bilateral pleural effusions. IMPRESSION: 1. Postop day #1, status post diverting loop transverse colostomy due to large bowel obstruction subsequently causing an acute small-bowel obstruction. 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 2. Acute hypernatremia 3. Acute hypokalemia, 4. Hypotension related to hypovolemia, improved. 5. History of diabetes, Hypertension, Pacemaker and Bladder cancer, post radiation chemotherapy. PLAN: We will obtain a small bowel follow-through. Continue NG tube to low wall suction, n.p.o. IV pain medication, restart TPN. We will change IV fluids to LR. The patient's total fluids per hours should be 110 mL an hour. The goal MAP should be 65 and above. We will replace electrolytes. We will repeat labs later this afternoon. We will continue to monitor urinary output. We will discontinue Levophed drip. We will also give the patient another 500 mL of albumin. The patient was seen this morning by Dr. Velasco. Job ID: [id number] MTDD
[2019-10-17 15:27] LABS: Lactic Acid 1.6 mmol/L (0.5-2.2)
[2019-10-17 15:32] LABS: Anion Gap 8 mmol/L (10-20); BUN (Urea Nitrogen) 29 mg/dL (8.4-25.7); Calc. Creatinine Clearance 43 mL/min (70-130); Calcium 8.1 mg/dL (7.8-10.44); Carbon Dioxide 23 mmol/L (23-31); Chloride 124 mmol/L (98-107); Estimated GFR-MDRD 58; Glucose 174 mg/dL (83-110); Phosphorus 3.1 mg/dL (2.3-4.7); Sodium 152 mmol/L (136-145)
[2019-10-17 15:35] LABS: Band 53 % (5-11); Hemoglobin 9.7 g/dL (14.0-18.0); Lymphocytes 8 % (21-51); MDiff Complete? YES; Mean Corpuscular HGB CONC 34.2 g/dL (32.0-36.0); Mean Corpuscular Hemoglobin 31.5 pg (27.0-31.0); Mean Corpuscular Volume 92.2 fL (78.0-98.0); Mean Platelet Volume 9.6 fL (7.4-10.4); Monocytes 6 % (0-10); Neutrophil 32 % (42-75); Ovalocytes SLIGHT = 2-5 cells (100X) (0-1/hpf); Platelet Count 46 thou/uL (130-400); Platelet Morphology Comment Appears Decreased; Polychromasia SLIGHT = 2-3 cells (100X) (0-2/hpf); RBC Distribution Width 15.1 % (11.5-14.5); Reactive Lymphocytes 1 % (0-10); Red Blood Cell (RBC) Count 3.08 mill/uL (4.70-6.10); Tear Drops SLIGHT = 2-5 cells (100X) (0-1/hpf); White Blood Cell (WBC) Count 5.5 thou/uL (4.8-10.8)
--- NOTE | 2019-10-17 17:17 | RAD ---
SMALL BOWEL FOLLOW THROUGH 10/17/19 HISTORY: Clinical concern for bowel obstruction. FINDINGS: Reed Maker imaging of the abdomen demonstrates numerous gas filled dilated small bowel loops throughout th e abdomen/pelvis, as seen on 10/15/19 CT abdomen and pelvis. The patient was administered gastrografin through their nasogastric tube. Immediate post administration imaging demonstrates contrast medial wi thin the stomach. There is contrast media within the stomach and dilated proximal small bowel at one hour, two hour, three hour, and five hour imaging. These results were relayed to Dr. Velasco at 5 p.m. and the study was terminated. Findings are suspicious for severe ileus or small bowel obstruction. POOJA Lopez advised on the morning of 10/18/19. IMPRESSION: Extensive dilated gas filled small bowel with transit of contrast media only to the proximal small fariba wel after five hours of imaging. Please see above discussion. POS: [facility]
--- NOTE | 2019-10-17 18:05 | PDOC.HOSPP ---
- Subjective Encounter Date: 10/17/19 Encounter Time: 17:50 Subjective: f/u for small/large bowel obstruction s/p diverting transverse colostomy POD # 1. Episodic hypotension post-op requiring CCU transfer with Levophed/IVF's resuscitation. Nursing notes intermittent agitation and mainly sleeping. Restarted on TPN @ 70ml/h. - Objective Vital Signs & Weight: Vital Signs (12 hours) Temp Pulse Ox 10/17/19 16:00 98.7 F 10/17/19 12:00 97.6 F 10/17/19 08:00 97.7 F 100 Weight Admit Weight 152 lb 1.903 oz Weight 152 lb 1.903 oz Most Recent Monitor Data Heart Rate from ECG 72 NIBP 129/59 NIBP BP-Mean 105 Respiration from ECG 18 SpO2 100 I&O: 10/16/19 10/17/19 10/18/19 06:59 06:59 06:59 Intake Total 1829 2253 2495 Output Total 1500 2083 1815 Balance 329 170 680 Result Diagrams: 10/17/19 14:56 10/17/19 14:56 Additional Labs: Accuchecks 10/17/19 10/17/19 10/17/19 17:18 12:32 06:14 POC Glucose 169 H 149 H 231 H 10/16/19 19:28 POC Glucose 150 H Microbiology 10/07/19 19:54 Venous blood - Right Arm Blood Culture - Final NO GROWTH IN 5 DAYS 10/07/19 19:54 Venous blood - Left Arm Blood Culture - Final NO GROWTH IN 5 DAYS 10/07/19 16:35 Urine Straight Catheter Urine Culture - Final NO GROWTH AT 36 HOURS Laboratory Tests 10/07/19 10/08/19 10/08/19 14:06 04:56 04:56 WBC 11.2 H 8.7 Hgb 13.0 L 11.6 L Band Neuts % (Manual) Sodium 139 Potassium 3.7 BUN Creatinine Lactic Acid Phosphorus Magnesium 10/13/19 10/13/19 10/17/19 15:03 15:03 03:30 WBC 3.6 L Hgb 13.4 L Band Neuts % (Manual) 48 H Sodium 155 H Potassium 2.9 L* BUN Creatinine Lactic Acid Phosphorus Magnesium 10/17/19 10/17/19 10/17/19 08:30 14:56 14:56 WBC Hgb Band Neuts % (Manual) Sodium 150 H Potassium 3.0 L BUN 32 H Creatinine 1.23 Lactic Acid 1.6 Phosphorus 3.1 Magnesium 2.0 10/17/19 14:56 WBC Hgb Band Neuts % (Manual) 53 H Sodium Potassium BUN Creatinine Lactic Acid Phosphorus Magnesium Radiology Reviewed by me: Yes (Abd x-ray - retained contrast in fluid/gas filled small bowel) EKG Reviewed by me: Yes (Tele - Paced in 70's) Hospitalist ROS - Medication Medications: Active Medications Generic Name Dose Route Start Last Admin Trade Name Freq PRN Reason Stop Dose Admin Acetaminophen 1,000 mg 10/16/19 18:00 10/17/19 17:01 Tylenol PER TUBE Not Given Q6HR TAMMY Enoxaparin Sodium 40 mg 10/15/19 21:00 10/16/19 21:14 Lovenox SC 40 mg 2100 TAMMY Administration Famotidine 20 mg 10/17/19 09:00 10/17/19 09:19 Pepcid SLOW IVP 20 mg DAILY TAMMY Administration Hydralazine HCl 10 mg 10/11/19 11:28 10/11/19 17:39 Apresoline SLOW IVP 10 mg Q4H PRN Administration SBP>150 Fat Emulsion Intravenous 250 2,350.6365 mls @ 70 mls/hr 10/16/19 22:00 12:32 ml/ Sodium Acetate 40 meq/ IV 2,350.6365 mls Potassium Acetate 50 meq/ 2200 TAMMY Administration Potassium Chloride 10 meq/ Potassium Phosphate 10 mmol/ Calcium Gluconate 15 meq/ Magnesium Sulfate 15 meq/ Multivitamins 10 ml/ Chromium/ Copper/Manganese/Seleni/Zn 1 ml/ Amino Acids/Dextrose Piperacillin Sod/Tazobactam 100 mls @ 200 mls/hr 10/16/19 23:59 10/17/19 17: 09 Sod 3.375 gm/ Sodium Chloride IVPB 10/24/19 00:00 100 mls Q6HR TAMMY Administration Norepinephrine Bitartrate 8 mg 250 mls @ 0 mls/hr 10/16/19 23:20 10/17/19 03: 48 / Dextrose/Water IVPB 250 mls INF PRN Administration TO MAINTAIN MAP > 65 Protocol As Directed Lactated Ringer's 1,000 mls @ 40 mls/hr 10/17/19 11:31 04/11/20 12:23 Lactated Ringer's IV 1,000 mls .Q24H TAMMY Administration Potassium Phosphate 30 mmol/ 260 mls @ 130 mls/hr 10/17/19 16:45 10/17/19 17: 01 Dextrose/Water IVPB 10/17/19 19:00 260 mls NOW TAMMY Administration Insulin Human Regular 0 units 10/17/19 02:31 10/17/19 17:15 Humulin R SC 2 unit .MILD SLIDING SCALE PRN Administration Mild Correctional Scale Morphine Sulfate 2 mg 10/16/19 20:37 10/17/19 13:46 Morphine SLOW IVP 2 mg Q2H PRN Administration Breakthrough Pain Ondansetron HCl 4 mg 10/14/19 19:58 10/14/19 20:04 Zofran IVP 4 mg Q6H PRN Administration Nausea/Vomiting Sodium Chloride 10 ml 10/07/19 21:00 10/17/19 10:37 Flush - Normal Saline IVF 10 ml Q12HR TAMMY Administration - Exam General Appearance: ill appearing General - other findings: somnolent, lethargic Eye: PERRL, anicteric sclera ENT: normocephalic atraumatic, no oropharyngeal lesions, dry oral mucosa Neck: supple, symmetric, no JVD, no thyromegaly Heart: RRR, no gallops, no rubs, III/IV Heart - other findings: S1, S2 Respiratory: CTAB, no rales, no ronchi, normal chest expansion Gastrointestinal: tender to palpation, distended, diminished bowl sounds, voluntary guarding Gastrointestinal - other findings: colostomy in place Extremities: no cyanosis, no clubbing, no edema Skin: normal turgor, no lesions Musculoskeletal: generalized weakness Psychiatric: flat affect, somnolent, lethargic Psychiatric - other findings: minimally responsive to name/tactile Hosp A/P (1) Large bowel obstruction Code(s): K56.609 - UNSP INTESTNL OBST, UNSP TO PARTIAL VERSUS COMPLETE OBST Status: Acute Plan: s/p diverting transverse colostomy POD #1, pain control, monitor ostomy output, IVF's (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, UNSPECIFIED Status: Chronic (3) Acute kidney injury Code(s): N17.9 - ACUTE KIDNEY FAILURE, UNSPECIFIED Status: Acute Plan: Improved, continue volume replacement, avoid nephrotoxic meds and limit contrast (4) Hypernatremia Code(s): E87.0 - HYPEROSMOLALITY AND HYPERNATREMIA Status: Acute Plan: Persistent, likely due to dehydration and bowel obstruction, free-H2O replacement, serial Na+ (5) Hypokalemia Code(s): E87.6 - HYPOKALEMIA Status: Acute Plan: Persistent, KPhos IV, serial K+ - Plan continue antibiotics, social insurance analyst, respiratory therapy, DVT proph w/SCDs continue Zosyn Continue D5W IVF's due to hypernatremia Continue TPN @ 70ml/h Palliative measures KCL supplementation Code Status: DNAR Wean Levophed as clinically indicated AM lab: BMP, CBC, Mg++, PO3
--- NOTE | 2019-10-17 21:22 | PRG ---
DATE OF SERVICE: 10/17/2019 SUBJECTIVE: The patient was seen this evening during rounds. He was resting in bed and asleep with no signs of acute distress. Nursing reported no acute events. He is maintaining his airway and his mentation has improved. He did not sleep much last night, so it is my hope that he will sleep better this evening. He has been hemodynamically stable throughout the day and the Levophed was discontinued today. His urinary output has been adequate and he has been afebrile. His ostomy continues to work appropriately. OBJECTIVE: VITAL SIGNS: Temperature 98.8, pulse 78, respirations 25, oxygen saturation 100% on room air, and blood pressure 124/52. GENERAL: Frail elderly male, lying in bed, with no signs of acute distress. PULMONARY: Equal chest rise and fall. Clear breath sounds bilaterally. No signs of acute respiratory distress. CARDIAC: Regular rate and rhythm. GI: Abdomen soft. Mildly tender to palpation and nondistended. Colostomy is working appropriately and appears to be perfusing well. EXTREMITIES: 2+ pulses in all extremities. Gross motor and sensation intact. He does have some edema to the bilateral lower extremities, which is slightly worse than yesterday. NEUROLOGIC: GCS is 14 to 15. LABORATORY FINDINGS: Completed this afternoon demonstrates a white count of 5.5, hemoglobin 9.7, hematocrit 28.4, and platelets 46. Sodium 152, potassium 3.0, chloride 124, BUN 29, creatinine 1.18, glucose 174. Lactic acid 1.6. Phosphorus 3.1 and magnesium 2.0. DIAGNOSTIC FINDINGS: Small-bowel follow-through was completed today. We will repeat an x-ray of the abdomen in the morning to complete the study. ASSESSMENT: 1. Postop day 1 for diverting loop transverse colostomy secondary to large bowel obstruction caused by known rectal and anal squamous cell cancer. 2. Ileus versus acute small-bowel obstruction. 3. Acute kidney injury, resolved. 4. Acute hypernatremia, worsening. 5. Acute hypophosphatemia, stable. 6. History of diabetes, hypertension, pacemaker, and bladder cancer. PLAN: Continue n.p.o. Continue NG tube to low intermittent wall suction. Continue LR and TPN for a total intake to be at 110. Continue IV antibiotics. Follow up panculture. The patient to receive an x-ray in the morning to complete small bowel follow-through study. He is receiving K-Phos. This evening, we will follow up with additional BMP, mag, and phos laboratory studies this evening after his electrolytes have been replaced. It is my suspicion he will need additional electrolytes. Continue to closely monitor hemodynamics and urinary output as well as mentation. Job ID: [id number]
[2019-10-17] MEDS: POTASSIUM CHLORIDE IV SCH (21:49)
[2019-10-17] MEDS: [UNRECOGNIZED DRUG - OTHER] IV SCH (21:49)
[2019-10-17] MEDS: Enoxaparin Sodium 40 MG/0.4 ML SYRINGE SC SCH (22:26)
[2019-10-17 22:44] LABS: Anion Gap 7 mmol/L (10-20); BUN (Urea Nitrogen) 30 mg/dL (8.4-25.7); Calc. Creatinine Clearance 44 mL/min (70-130); Calcium 8.5 mg/dL (7.8-10.44); Carbon Dioxide 25 mmol/L (23-31); Chloride 122 mmol/L (98-107); Estimated GFR-MDRD 60; Glucose 134 mg/dL (83-110); Magnesium 2.1 mg/dL (1.6-2.6); Phosphorus 3.2 mg/dL (2.3-4.7); Sodium 151 mmol/L (136-145)
[2019-10-17 22:47] LABS: Potassium 2.7 mmol/L (3.5-5.1)
[2019-10-17] MEDS ORDERED: Potassium Phosphate 30 MMOL in Sodium Chloride 0.9% 250 ML 250 ML IVPB SCH (23:30)
[2019-10-18] MEDS: Morphine 2 MG/ML SYRINGE SLOW IVP PRN ×2 (00:03→05:47)
[2019-10-18] MEDS: Piperacillin/Tazobactam 3.375 GM in Sodium Chloride 0.9% 100 ML IVPB SCH ×4 (05:47→23:42)
[2019-10-18] MEDS: Acetaminophen 500 MG TAB PER TUBE SCH ×4 (05:48→23:43)
[2019-10-18 05:52] LABS: Anion Gap 8 mmol/L (10-20); BUN (Urea Nitrogen) 29 mg/dL (8.4-25.7); Calc. Creatinine Clearance 43 mL/min (70-130); Calcium 8.3 mg/dL (7.8-10.44); Carbon Dioxide 24 mmol/L (23-31); Chloride 123 mmol/L (98-107); Estimated GFR-MDRD 59; Glucose 142 mg/dL (83-110); Magnesium 2.2 mg/dL (1.6-2.6); Phosphorus 3.8 mg/dL (2.3-4.7); Sodium 152 mmol/L (136-145)
[2019-10-18 05:57] LABS: Potassium 2.6 mmol/L (3.5-5.1)
[2019-10-18 06:28] LABS: Hemoglobin 9.2 g/dL (14.0-18.0); Mean Corpuscular HGB CONC 33.4 g/dL (32.0-36.0); Mean Corpuscular Hemoglobin 30.8 pg (27.0-31.0); Mean Corpuscular Volume 92.1 fL (78.0-98.0); Mean Platelet Volume 8.6 fL (7.4-10.4); Platelet Count 84 thou/uL (130-400); RBC Distribution Width 15.1 % (11.5-14.5); White Blood Cell (WBC) Count 5.1 thou/uL (4.8-10.8)
[2019-10-18 06:29] LABS: Anisocytosis SLIGHT = 6-15 cells (100X) (0-5/hpf); Band 23 % (5-11); Lymphocytes 11 % (21-51); MDiff Complete? YES; Monocytes 9 % (0-10); Neutrophil 57 % (42-75); Ovalocytes SLIGHT = 2-5 cells (100X) (0-1/hpf)
--- NOTE | 2019-10-18 07:45 | RAD ---
SINGLE VIEW ABDOMEN: Date: 10/18/2019 COMPARISON: 10/12/2019. Small bowel follow-through dated 10/17/2019. HISTORY: Small bowel obstruction. FINDINGS: Anterior view of the abdomen shows contrast still present within small bowel loops. The rectum is exc luded. No obvious contrast is seen in the colon. A NG tube is seen in the stomach. IMPRESSION: Persistent contrast seen in small bowel loops is most concerning for a complete small bowel obstructi on. POS: [facility]
[2019-10-18] MEDS: Famotidine/PF 20 mg/2ml Vial SLOW IVP SCH (09:12)
[2019-10-18] MEDS ORDERED: Tamsulosin HCl 0.4 MG CAP PO SCH (11:00)
[2019-10-18 11:45] LABS: Anion Gap 10 mmol/L (10-20); BUN (Urea Nitrogen) 28 mg/dL (8.4-25.7); Calc. Creatinine Clearance 44 mL/min (70-130); Calcium 8.6 mg/dL (7.8-10.44); Carbon Dioxide 21 mmol/L (23-31); Chloride 123 mmol/L (98-107); Estimated GFR-MDRD 60; Glucose 165 mg/dL (83-110); Magnesium 2.2 mg/dL (1.6-2.6); Phosphorus 4.7 mg/dL (2.3-4.7); Potassium 3.1 mmol/L (3.5-5.1); Sodium 151 mmol/L (136-145)
[2019-10-18] MEDS: Insulin Regular 300 UNITS/3 ML VIAL SC PRN ×3 (12:02→23:48)
--- NOTE | 2019-10-18 13:38 | PRG ---
DATE OF SERVICE: 10/18/2019 SUBJECTIVE: The patient was seen this morning during rounds in the critical care unit. The patient was currently up in the neuro chair, awake, alert, and following simple commands. Nursing staff report he was agitating and cursing the staff overnight. Currently, the patient is appropriate and following commands. The patient denies any abdominal pain when asked. The patient's urinary output continues to be adequate. The patient continues to hypernatremia and hypokalemia. Electrolytes were replaced early this morning. The patient continues to receive TPN. The patient continues to have NG tube in place, output overnight was 225ml. OBJECTIVE: VITAL SIGNS: Blood pressure 138/57, pulse 67, respirations 22, SpO2 of 100% on room air, temperature 97.8. GENERAL: Elderly male, awake, alert, in no distress, follows simple commands. HEENT: Mucous membranes are dry. NECK: No JVD. Trachea midline. RESPIRATORY: Bilateral breath sounds clear. No wheezing, rales, or rhonchi. Respirations are even and nonlabored. ABDOMEN: Moderately distended, soft. Active bowel sounds. No peritoneal signs. Ostomy site viable, healthy appearing, liquid brown stool output. EXTREMITIES: Generalized pitting edema, worse in the right upper and lower extremity. Strength 5/5. LABORATORY DATA: WBC 5.1, RBC 3.0, hemoglobin 9.2, hematocrit 27.6, platelets 84. Sodium 152, potassium 2.6, chloride 123, carbon dioxide 24, BUN 29, creatinine 1.17, estimated GFR 59, glucose 142, calcium 8.3, phosphorus 3.8, magnesium 2.2. DIAGNOSTICS: Small-bowel follow-through and abdominal x-ray reviewed by Dr. Velasco. No obstruction noted. IMPRESSION: 1. Postop day #2 for diverting loop transverse colostomy secondary to large and small bowel obstruction, known rectal and anal squamous cell cancer. Postop ileus, acute small bowel obstruction has been ruled. 2. Acute kidney injury, resolved. 3. Acute hypernatremia. 4. Acute hypokalemia and hypophosphatemia. 5. History of diabetes, hypertension, pacemaker, and bladder cancer. PLAN: Remove NG tube. Speech consult. Advance to clear liquids if the patient passes swallow study. Continue TPN and maintenance fluids for a total intake of 110ml/hr. Continue IV antibiotics. Discontinue the patient's Felipe catheter. Replace electrolytes. Pharmacy to adjust TPN to increase the total potassium as he has been requiring replacement daily. Restart the patient's home Flomax. Increase physical and occupational therapy. We will have the patient up in the neuro chair as much as tolerated. The patient was examined by Dr. Velasco in the critical care unit. We will transfer the patient to a surgical floor. Job ID: [id number] MTDD
[2019-10-18] MEDS: Lactated Ringer's 1,000 ML IV SCH (13:58)
--- NOTE | 2019-10-18 15:42 | PDOC.HOSPP ---
- Subjective Encounter Date: 10/18/19 Encounter Time: 15:35 Subjective: f/u for large/SBO s/p diverting transverse colostomy POD #2. Receiving Zosyn/ TPN. Transferred to surgical floor today. - Objective Vital Signs & Weight: Vital Signs (12 hours) Temp Pulse Resp BP Pulse Ox 10/18/19 12:15 98.3 F 71 20 165/71 H 98 10/18/19 10:00 98.5 F 10/18/19 09:00 97.8 F 10/18/19 08:00 99 10/18/19 07:00 97.8 F 10/18/19 04:00 98.7 F Weight Admit Weight 152 lb 1.903 oz Weight 152 lb 1.903 oz Most Recent Monitor Data Heart Rate from ECG 83 NIBP 161/62 NIBP BP-Mean 76 Respiration from ECG 25 SpO2 100 I&O: 10/17/19 10/18/19 10/19/19 06:59 06:59 06:59 Intake Total 2253 4150 250 Output Total 7052 1929 1410 Balance 170 740 -1160 Result Diagrams: 10/18/19 05:10 10/18/19 11:05 Additional Labs: Accuchecks 10/18/19 10/18/19 10/17/19 11:59 05:26 23:45 POC Glucose 176 H 144 H 135 H 10/17/19 10/17/19 17:18 12:32 POC Glucose 169 H 149 H Microbiology 10/16/19 22:10 Urine paulino catheter Urine Culture - Final NO GROWTH AT 36 HOURS 10/07/19 19:54 Venous blood - Right Arm Blood Culture - Final NO GROWTH IN 5 DAYS 10/07/19 19:54 Venous blood - Left Arm Blood Culture - Final NO GROWTH IN 5 DAYS 10/07/19 16:35 Urine Straight Catheter Urine Culture - Final NO GROWTH AT 36 HOURS 10/16/19 21:48 Venous blood - Right Arm Blood Culture - Preliminary Specimen has been received and culture in progress. No Growth to date. 10/16/19 21:48 Venous blood - Left Arm Blood Culture - Preliminary Specimen has been received and culture in progress. No Growth to date. Laboratory Tests 10/07/19 10/08/19 10/08/19 14:06 04:56 04:56 WBC 11.2 H 8.7 Hgb 13.0 L 11.6 L Band Neuts % (Manual) Sodium 139 Potassium 3.7 BUN Creatinine Lactic Acid Phosphorus Magnesium 10/13/19 10/13/19 10/17/19 15:03 15:03 03:30 WBC 3.6 L Hgb 13.4 L Band Neuts % (Manual) 48 H Sodium 155 H Potassium 2.9 L* BUN Creatinine Lactic Acid Phosphorus Magnesium 10/17/19 10/17/19 10/17/19 08:30 14:56 14:56 WBC Hgb Band Neuts % (Manual) Sodium 150 H Potassium 3.0 L BUN 32 H Creatinine 1.23 Lactic Acid 1.6 Phosphorus 3.1 Magnesium 2.0 10/17/19 10/17/19 10/18/19 14:56 22:00 05:10 WBC Hgb Band Neuts % (Manual) 53 H Sodium 151 H 152 H Potassium 2.7 L* 2.6 L* BUN Creatinine Lactic Acid Phosphorus Magnesium Radiology Reviewed by me: Yes (ABD x-ray - contrast in small bowel) Hospitalist ROS - Medication Medications: Active Medications Generic Name Dose Route Start Last Admin Trade Name Freq PRN Reason Stop Dose Admin Acetaminophen 1,000 mg 10/16/19 18:00 10/18/19 11:26 Tylenol PER TUBE 1,000 mg Q6HR TAMMY Administration Enoxaparin Sodium 40 mg 10/15/19 21:00 10/17/19 22:26 Lovenox SC 40 mg 2100 TAMMY Administration Famotidine 20 mg 10/17/19 09:00 10/18/19 09:12 Pepcid SLOW IVP 20 mg DAILY TAMMY Administration Hydralazine HCl 10 mg 10/11/19 11:28 10/11/19 17:39 Apresoline SLOW IVP 10 mg Q4H PRN Administration SBP>150 Piperacillin Sod/Tazobactam 100 mls @ 200 mls/hr 10/16/19 23:59 10/18/19 11: 26 Sod 3.375 gm/ Sodium Chloride IVPB 10/24/19 00:00 100 mls Q6HR TAMMY Administration Norepinephrine Bitartrate 8 mg 250 mls @ 0 mls/hr 10/16/19 23:20 10/17/19 03: 48 / Dextrose/Water IVPB 250 mls INF PRN Administration TO MAINTAIN MAP > 65 Protocol As Directed Lactated Ringer's 1,000 mls @ 40 mls/hr 10/17/19 11:31 10/18/19 13:58 Lactated Ringer's IV 1,000 mls .Q24H TAMMY Administration Fat Emulsion Intravenous 250 2,333.9699 mls @ 70 mls/hr 10/17/19 22:00 21:49 ml/ Potassium Acetate 50 meq/ IV 2,333.9699 mls Potassium Chloride 10 meq/ 2200 TAMMY Administration Potassium Phosphate 20 mmol/ Calcium Gluconate 15 meq/ Magnesium Sulfate 15 meq/ Multivitamins 10 ml/ Chromium/ Copper/Manganese/Seleni/Zn 1 ml/ Amino Acids/Dextrose Potassium Phosphate 30 mmol/ 260 mls @ 130 mls/hr 10/18/19 13:30 10/18/19 13: 58 Dextrose/Water IVPB 10/18/19 16:00 260 mls NOW TAMMY Administration Insulin Human Regular 0 units 10/17/19 02:31 10/18/19 12:02 Humulin R SC 2 unit .MILD SLIDING SCALE PRN Administration Mild Correctional Scale Morphine Sulfate 2 mg 10/16/19 20:37 10/18/19 05:47 Morphine SLOW IVP 2 mg Q2H PRN Administration Breakthrough Pain Ondansetron HCl 4 mg 10/14/19 19:58 10/14/19 20:04 Zofran IVP 4 mg Q6H PRN Administration Nausea/Vomiting Sodium Chloride 10 ml 10/07/19 21:00 10/18/19 09:12 Flush - Normal Saline IVF 10 ml Q12HR TAMMY Administration - Exam General Appearance: ill appearing General - other findings: responds to questions briefly Eye: PERRL, anicteric sclera ENT: normocephalic atraumatic, no oropharyngeal lesions Neck: supple, symmetric, no JVD, no thyromegaly Heart: RRR, no gallops, no rubs, normal peripheral pulses Heart - other findings: S1, S2 Respiratory: CTAB, no wheezes, no rales, no ronchi, normal chest expansion Gastrointestinal: non-tender, distended, diminished bowl sounds Gastrointestinal - other findings: ostomy in place with fecal drainage Extremities: no cyanosis, no clubbing, no edema Skin: normal turgor, no lesions Neurological: cranial nerve grossly intact, no new deficit Musculoskeletal: generalized weakness Psychiatric: oriented to person, flat affect Hosp A/P (1) Large bowel obstruction Code(s): K56.609 - UNSP INTESTNL OBST, UNSP TO PARTIAL VERSUS COMPLETE OBST Status: Acute Plan: s/p diverting transverse colostomy POD #2, continue supportive mgmt, OOB, TPN for nutritional support (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, UNSPECIFIED Status: Chronic (3) Acute kidney injury Code(s): N17.9 - ACUTE KIDNEY FAILURE, UNSPECIFIED Status: Acute Plan: Improved, continue IVF's, avoid nephrotoxic meds and limit contrast (4) Hypernatremia Code(s): E87.0 - HYPEROSMOLALITY AND HYPERNATREMIA Status: Acute Plan: Slow improvement, continue IVF's, serial Na+ monitoring (5) Hypokalemia Code(s): E87.6 - HYPOKALEMIA Status: Acute Plan: Improving slowly, KCL supplementation - Plan continue antibiotics, PT/OT, social director, speech therapy, incentive spirometry, DVT proph w/SCDs continue Zosyn Continue IVF's due to hypernatremia Continue TPN @ 70ml/h Palliative measures KCL supplementation Code Status: DNAR AM lab: BMP, CBC, Mg++, PO3
[2019-10-18] MEDS: hydrALAZINE 20 MG/ML VIAL SLOW IVP PRN (18:22)
[2019-10-18] MEDS: Enoxaparin Sodium 40 MG/0.4 ML SYRINGE SC SCH (20:36)
[2019-10-18] MEDS: Melatonin 3 MG TAB PO SCH (20:36)
--- NOTE | 2019-10-18 22:06 | PRG ---
DATE OF SERVICE: SUBJECTIVE: The patient was seen this evening, lying in bed, asleep, with no signs of acute distress. Nursing reported no acute events and states that the patient has been cooperative and resting this evening. OBJECTIVE: VITAL SIGNS: Temperature 97.7, pulse 72, respirations 16, oxygen saturation 97% on room air, and blood pressure 144/62. GENERAL: A frail-appearing elderly male, lying in bed, asleep, with no signs of acute distress. PULMONARY: Equal chest rise and fall. No signs of acute respiratory distress. ASSESSMENT: 1. 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 2. Acute small-bowel obstruction versus severe ileus. 3. Acute kidney injury, resolved. 4. Acute hypernatremia and acute hypokalemia, improving. 5. History of diabetes, pacemaker, hypertension, bladder cancer status post chemo and radiation. PLAN: The patient was advanced to a clear liquid nectar thick diet. We will continue that. We will also continue TPN and fluids overnight. We will add melatonin p.r.n. for the patient so he can sleep and we can help improve his mild delirium. Continue IV antibiotics for a total of 7 days. Felipe has been discontinued and the patient has voided since. Our goal this evening is to provide rest for the patient so he can start working more aggressively with physical and occupational therapy. Repeat blood work in the morning. Job ID: [id number]
[2019-10-18] MEDS: POTASSIUM ACETATE IV SCH (22:15)
[2019-10-18] MEDS: POTASSIUM CHLORIDE IV SCH (22:15)
[2019-10-18] MEDS: [UNRECOGNIZED DRUG - OTHER] IV SCH (22:15)
[2019-10-18] MEDS: FAT EMULSION IV SCH (22:15)
[2019-10-19] MEDS: Piperacillin/Tazobactam 3.375 GM in Sodium Chloride 0.9% 100 ML IVPB SCH ×3 (05:27→17:35)
[2019-10-19] MEDS: Acetaminophen 500 MG TAB PER TUBE SCH (05:27)
[2019-10-19] MEDS: Insulin Regular 300 UNITS/3 ML VIAL SC PRN ×3 (05:40→18:11)
[2019-10-19 06:20] LABS: Anion Gap 9 mmol/L (10-20); BUN (Urea Nitrogen) 27 mg/dL (8.4-25.7); Calc. Creatinine Clearance 48 mL/min (70-130); Calcium 8.2 mg/dL (7.8-10.44); Carbon Dioxide 23 mmol/L (23-31); Chloride 118 mmol/L (98-107); Estimated GFR-MDRD 66; Glucose 149 mg/dL (83-110); Magnesium 2.1 mg/dL (1.6-2.6); Phosphorus 3.3 mg/dL (2.3-4.7); Potassium 2.6 mmol/L (3.5-5.1); Sodium 147 mmol/L (136-145)
[2019-10-19 06:29] LABS: Band 15 % (5-11); Eosinophils 1 % (0-10); Hemoglobin 9.7 g/dL (14.0-18.0); Lymphocytes 11 % (21-51); MDiff Complete? YES; Mean Corpuscular HGB CONC 32.5 g/dL (32.0-36.0); Mean Corpuscular Hemoglobin 30.1 pg (27.0-31.0); Mean Corpuscular Volume 92.5 fL (78.0-98.0); Mean Platelet Volume 9.3 fL (7.4-10.4); Myelocyte 2 % (0-0); Neutrophil 71 % (42-75); Platelet Count 90 thou/uL (130-400); Platelet Morphology Comment Appears Decreased; Red Blood Cell (RBC) Count 3.22 mill/uL (4.70-6.10); White Blood Cell (WBC) Count 4.3 thou/uL (4.8-10.8)
[2019-10-19] MEDS ORDERED: traMADol HCl 50 MG TAB PO PRN ×2 (07:53)
[2019-10-19] MEDS: Famotidine/PF 20 mg/2ml Vial SLOW IVP SCH (08:49)
[2019-10-19] MEDS: Tamsulosin HCl 0.4 MG CAP PO SCH (08:50)
[2019-10-19] MEDS ORDERED: Tamsulosin HCl 0.4 MG CAP PO SCH (09:00)
--- NOTE | 2019-10-19 10:57 | PRG ---
DATE OF SERVICE: 10/19/2019 SUBJECTIVE: Mr. Espino is an 89-year-old man, who is postoperative day #3 status post diverting loop transverse colostomy. He has a history of anorectal squamous cell carcinoma with resultant large and small bowel obstruction following chemoradiation therapy. The patient is awake and alert this morning. He reports adequate pain control. The colostomy has put out over 2000 mL of liquid stool in the last 24 hours. Urinary output is adequate for this patient's age and weight. OBJECTIVE: VITAL SIGNS: This morning include blood pressure of 149/68, pulse of 66, respiratory rate of 16, temperature of 97.8 degrees Fahrenheit, and oxygen saturation of 97% on room air. HEENT: Pupils are equal, round, reactive to light and accommodation. HEART: Regular rate and rhythm. No murmurs or gallops auscultated. LUNGS: Clear to auscultation bilaterally. Breathing, regular and nonlabored. ABDOMEN: Soft. Moderately distended, but nontender to palpation. Ostomy is viable and functional. The patient clearly has no peritoneal signs on examination. NEUROLOGIC: No focal deficits present. LABORATORY FINDINGS: CBC with 5100 white blood cells, hemoglobin and hematocrit stable at 9.2 and 27.6 respectively. Platelet count is 84,000. Differential counts as follows, 57 neutrophils, 23 bands, 11 lymphocytes, and 9 monocytes. This is in contrast to yesterday with 32% neutrophils and 53% bands. Metabolic profile today; sodium 147, potassium 2.6, chloride 118, bicarb 23, BUN 27, creatinine 1.06, glucose 149, magnesium 2.1, and phosphorus 3.3. IMPRESSION: 1. Postop day #3 status post loop transverse colostomy and resolved acute small and large bowel obstruction. 2. Acute hypokalemia. 3. Resolving acute hypernatremia. PLAN: 1. Correct abnormal electrolytes. 2. Adjust electrolytes in current TPN. 3. Advanced oral intake. 4. Increase activity per Physical and Occupational Therapy. 5. We will ask PM and R to evaluate the patient for possible transfer to inpatient rehabilitation post discharge. Job ID: [id number]
[2019-10-19] MEDS: Acetaminophen 500 MG TAB PO SCH ×2 (12:57→17:35)
[2019-10-19] MEDS: hydrALAZINE 20 MG/ML VIAL SLOW IVP PRN (14:22)
--- NOTE | 2019-10-19 17:15 | PDOC.HOSPP ---
- Subjective Encounter Date: 10/19/19 Encounter Time: 16:45 Subjective: f/u for large/small bowel obstruction s/p diverting transverse colostomy POD # 3. Receiving TPN and advancing diet. States he has not been walking and wants to get up. - Objective Vital Signs & Weight: Vital Signs (12 hours) Temp Pulse Resp BP Pulse Ox 10/19/19 16:29 97.4 F L 78 14 159/68 H 97 10/19/19 14:22 78 10/19/19 11:04 98.2 F 78 16 174/65 H 100 Weight Admit Weight 152 lb 1.903 oz Weight 152 lb 1.903 oz Most Recent Monitor Data Heart Rate from ECG 83 NIBP 161/62 NIBP BP-Mean 76 Respiration from ECG 25 SpO2 100 I&O: 10/18/19 10/19/19 10/20/19 06:59 06:59 06:59 Intake Total 4150 2427 480 Output Total 4884 2835 Balance -740 -408 480 Result Diagrams: 10/19/19 05:30 10/19/19 05:30 Additional Labs: Accuchecks 10/19/19 11:54 POC Glucose 266 H Microbiology 10/16/19 22:10 Urine paulino catheter Urine Culture - Final NO GROWTH AT 36 HOURS 10/07/19 19:54 Venous blood - Right Arm Blood Culture - Final NO GROWTH IN 5 DAYS 10/07/19 19:54 Venous blood - Left Arm Blood Culture - Final NO GROWTH IN 5 DAYS 10/07/19 16:35 Urine Straight Catheter Urine Culture - Final NO GROWTH AT 36 HOURS 10/16/19 21:48 Venous blood - Right Arm Blood Culture - Preliminary Specimen has been received and culture in progress. No Growth to date. 10/16/19 21:48 Venous blood - Left Arm Blood Culture - Preliminary Specimen has been received and culture in progress. No Growth to date. Laboratory Tests 10/07/19 10/08/19 10/08/19 14:06 04:56 04:56 WBC 11.2 H 8.7 Hgb 13.0 L 11.6 L Band Neuts % (Manual) Sodium 139 Potassium 3.7 BUN Creatinine Lactic Acid Phosphorus Magnesium 10/13/19 10/13/19 10/17/19 15:03 15:03 03:30 WBC 3.6 L Hgb 13.4 L Band Neuts % (Manual) 48 H Sodium 155 H Potassium 2.9 L* BUN Creatinine Lactic Acid Phosphorus Magnesium 10/17/19 10/17/19 10/17/19 08:30 14:56 14:56 WBC Hgb Band Neuts % (Manual) Sodium 150 H Potassium 3.0 L BUN 32 H Creatinine 1.23 Lactic Acid 1.6 Phosphorus 3.1 Magnesium 2.0 10/17/19 10/17/19 10/18/19 14:56 22:00 05:10 WBC Hgb Band Neuts % (Manual) 53 H Sodium 151 H 152 H Potassium 2.7 L* 2.6 L* BUN Creatinine Lactic Acid Phosphorus Magnesium Hospitalist ROS - Medication Medications: Active Medications Generic Name Dose Route Start Last Admin Trade Name Freq PRN Reason Stop Dose Admin Acetaminophen 1,000 mg 10/19/19 12:00 10/19/19 12:57 Tylenol PO 1,000 mg Q6HR TAMMY Administration Enoxaparin Sodium 40 mg 10/15/19 21:00 10/18/19 20:36 Lovenox SC Not Given 2100 TAMMY Famotidine 20 mg 10/17/19 09:00 10/19/19 08:49 Pepcid SLOW IVP 20 mg DAILY TAMMY Administration Hydralazine HCl 10 mg 10/11/19 11:28 10/19/19 14:22 Apresoline SLOW IVP 10 mg Q4H PRN Administration SBP>150 Piperacillin Sod/Tazobactam 100 mls @ 200 mls/hr 10/16/19 23:59 10/19/19 12: 57 Sod 3.375 gm/ Sodium Chloride IVPB 10/24/19 00:00 100 mls Q6HR TAMMY Administration Norepinephrine Bitartrate 8 mg 250 mls @ 0 mls/hr 10/16/19 23:20 10/17/19 03: 48 / Dextrose/Water IVPB 250 mls INF PRN Administration TO MAINTAIN MAP > 65 Protocol As Directed Fat Emulsion Intravenous 250 2,333.9699 mls @ 70 mls/hr 10/17/19 22:00 22:15 ml/ Potassium Acetate 50 meq/ IV 10/19/19 21:59 2,333.9699 mls Potassium Chloride 10 meq/ 2200 TAMMY Administration Potassium Phosphate 20 mmol/ Calcium Gluconate 15 meq/ Magnesium Sulfate 15 meq/ Multivitamins 10 ml/ Chromium/ Copper/Manganese/Seleni/Zn 1 ml/ Amino Acids/Dextrose Insulin Human Regular 0 units 10/17/19 02:31 10/19/19 13:13 Humulin R SC 4 unit .MILD SLIDING SCALE PRN Administration Mild Correctional Scale Melatonin 3 mg 10/18/19 21:00 10/18/19 20:36 Melatonin PO 3 mg HS TAMMY Administration Ondansetron HCl 4 mg 10/14/19 19:58 10/14/19 20:04 Zofran IVP 4 mg Q6H PRN Administration Nausea/Vomiting Sodium Chloride 10 ml 10/07/19 21:00 10/19/19 08:50 Flush - Normal Saline IVF 10 ml Q12HR TAMMY Administration Tamsulosin HCl 0.4 mg 10/19/19 09:00 10/19/19 08:50 Flomax PO 0.4 mg DAILY TAMMY Administration - Exam General Appearance: NAD, awake alert Eye: PERRL, anicteric sclera ENT: normocephalic atraumatic, no oropharyngeal lesions Neck: supple, symmetric, no JVD, no thyromegaly Heart: RRR, no gallops, no rubs, normal peripheral pulses Heart - other findings: S1, S2 Respiratory: CTAB, no wheezes, no rales, no ronchi, normal chest expansion Gastrointestinal: soft, non-tender, non-distended, normal bowel sounds Gastrointestinal - other findings: + colostomy in place with mustard/green soft stool Extremities: no cyanosis, no clubbing, no edema Skin: normal turgor, no lesions Neurological: cranial nerve grossly intact, no new deficit Musculoskeletal: normal tone, generalized weakness Psychiatric: oriented to person Hosp A/P (1) Large bowel obstruction Code(s): K56.609 - UNSP INTESTNL OBST, UNSP TO PARTIAL VERSUS COMPLETE OBST Status: Acute Plan: s/p diverting loop transverse colostomy POD #3, continue supportive mgmt, pain control, TPN for nutritional support (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, UNSPECIFIED Status: Chronic (3) Acute kidney injury Code(s): N17.9 - ACUTE KIDNEY FAILURE, UNSPECIFIED Status: Acute (4) Hypernatremia Code(s): E87.0 - HYPEROSMOLALITY AND HYPERNATREMIA Status: Acute Plan: Improved, continue supportive mgmt, serial Na+ monitoring (5) Hypokalemia Code(s): E87.6 - HYPOKALEMIA Status: Acute Plan: Persistent, likely due to GI losses, continue KCL supplementation - Plan continue antibiotics, PT/OT, social media marketing analyst, out of bed/ambulate, DVT proph w/ SCDs continue Zosyn OOB/PT Continue TPN @ 70ml/h Palliative measures KCL supplementation Code Status: DNAR AM lab: BMP, CBC, Mg++, PO3
[2019-10-19 20:21] LABS: Anion Gap 12 mmol/L (10-20); BUN (Urea Nitrogen) 22 mg/dL (8.4-25.7); Calc. Creatinine Clearance 53 mL/min (70-130); Carbon Dioxide 20 mmol/L (23-31); Chloride 112 mmol/L (98-107); Estimated GFR-MDRD 75; Glucose 181 mg/dL (83-110); Phosphorus 2.8 mg/dL (2.3-4.7); Sodium 141 mmol/L (136-145)
[2019-10-19] MEDS: Melatonin 3 MG TAB PO SCH (20:27)
[2019-10-19] MEDS: Enoxaparin Sodium 40 MG/0.4 ML SYRINGE SC SCH (20:28)
[2019-10-19 20:32] LABS: Potassium 2.7 mmol/L (3.5-5.1)
[2019-10-19] MEDS ORDERED: Potassium Chloride 20 MEQ TAB PO SCH (20:45)
[2019-10-19] MEDS ORDERED: [UNRECOGNIZED DRUG - OTHER] IV SCH (22:00)
[2019-10-19] MEDS ORDERED: POTASSIUM PHOSPHATE IV SCH (22:00)
[2019-10-19] MEDS ORDERED: FAT EMULSION IV SCH (22:00)
[2019-10-19] MEDS ORDERED: POTASSIUM ACETATE IV SCH (22:00)
[2019-10-20] MEDS: Piperacillin/Tazobactam 3.375 GM in Sodium Chloride 0.9% 100 ML IVPB SCH ×3 (00:10→13:10)
[2019-10-20] MEDS: Acetaminophen 500 MG TAB PO SCH ×3 (00:10→13:10)
[2019-10-20] MEDS: Insulin Regular 300 UNITS/3 ML VIAL SC PRN ×2 (00:16→05:46)
[2019-10-20 05:18] LABS: Anion Gap 11 mmol/L (10-20); BUN (Urea Nitrogen) 20 mg/dL (8.4-25.7); Calc. Creatinine Clearance 53 mL/min (70-130); Calcium 7.9 mg/dL (7.8-10.44); Carbon Dioxide 19 mmol/L (23-31); Chloride 113 mmol/L (98-107); Estimated GFR-MDRD 74; Glucose 166 mg/dL (83-110); Phosphorus 3.5 mg/dL (2.3-4.7); Sodium 140 mmol/L (136-145)
[2019-10-20 05:33] LABS: Anisocytosis SLIGHT = 6-15 cells (100X) (0-5/hpf); Band 11 % (5-11); Hemoglobin 10.4 g/dL (14.0-18.0); Lymphocytes 15 % (21-51); MDiff Complete? YES; Mean Corpuscular HGB CONC 33.3 g/dL (32.0-36.0); Mean Corpuscular Hemoglobin 30.2 pg (27.0-31.0); Mean Corpuscular Volume 90.6 fL (78.0-98.0); Mean Platelet Volume 9.2 fL (7.4-10.4); Monocytes 8 % (0-10); Neutrophil 66 % (42-75); Platelet Count 101 thou/uL (130-400); Platelet Morphology Comment Appears Decreased; RBC Distribution Width 14.9 % (11.5-14.5); Red Blood Cell (RBC) Count 3.43 mill/uL (4.70-6.10); White Blood Cell (WBC) Count 4.9 thou/uL (4.8-10.8)
--- NOTE | 2019-10-20 06:41 | PRG ---
DATE OF SERVICE: 10/19/2019 SUBJECTIVE: The patient was seen this evening during rounds. He was sitting up in bed and had just completed dinner. He had no signs of acute distress. He reported his pain was well controlled, and he denies any nausea, vomiting, or abdominal pain. Nursing reported no acute events. OBJECTIVE: VITAL SIGNS: Temperature 97.2, pulse 73, respirations 16, oxygen saturation 96% on room air, and blood pressure 155/66. GENERAL: Well-appearing elderly male, sitting up in bed with no signs of acute distress. PULMONARY: Equal chest rise and fall. No signs of acute respiratory distress. ASSESSMENT: 1. Postoperative day #3, status post diverting loop transverse colostomy for acute large bowel obstruction due to rectal and anal cancers. 2. Acute small-bowel obstruction versus ileus, resolving. 3. Acute kidney injury, resolved. 4. Acute hypernatremia, resolved. 5. Acute hypokalemia, persistent. 6. History of diabetes, hypertension, pacemaker, bladder cancer, status post radiation and chemotherapy. PLAN: Continue current regular diet. Continue TPN overnight. We will monitor his intake. Stop TPN when he is taking appropriate caloric intake. Replace potassium and phosphorus this evening IV and oral. Continue antibiotics for a total of 7 days. Discontinue Pepcid as the patient is now taking a regular diet. The patient is pending placement in acute rehab facility. Repeat blood work in the morning. Job ID: [id number]
[2019-10-20] MEDS: Tamsulosin HCl 0.4 MG CAP PO SCH (09:25)
--- NOTE | 2019-10-20 12:13 | DIS ---
DATE OF ADMISSION: 10/07/2019 DATE OF DISCHARGE: 10/20/2019 DISCHARGE DIAGNOSES: 1. Large and small bowel obstruction secondary to squamous cell carcinoma of the rectum. 2. Status post diverting loop transverse colostomy. 3. Squamous cell anorectal carcinoma. 4. Acute kidney injury, resolved. 5. Hypernatremia, resolving. 6. Hypokalemia, improved. 7. Deconditioning. CONSULTATIONS: 1. Dr. Velasco with General Surgery Service. 2. Medical Oncology Service. 3. Dr. Holman with GI Service. PERTINENT LABORATORY AND X-RAY FINDINGS: Potassium level ranged between 2.6 to 3.7. Lactic acid level ranged between 1.6 to 2.6. Phosphorus level ranged between 2.5 to 4.6, magnesium level ranged between 1.8 to 2.3. BNP 975. Lipase less than 4. Cortisol level 31.4. CBC showed a white blood cell count ranging between 3.6 to 11.2, hemoglobin ranged between 9.2 to 15.4, platelet count ranged between 46 to 218. Sodium level ranged between [address] of the abdomen and pelvis dated 10/07/2019, showed large amount of stool retention in the colon. Partial small bowel obstruction suspected. Diverticulosis. CT of the brain without contrast dated 10/07/2019, showed no acute intracranial process. Acute abdominal series dated 10/07/2019, showed distended loops of small bowel secondary to small bowel obstruction. CT of the abdomen and pelvis dated 10/15/2019, showed persistent dilated loops of small bowel. HOSPITAL COURSE: The patient initially presented with anorexia, poor oral intake with intermittent nausea. The patient also had complained of abdominal pain with distention in the context of known squamous cell carcinoma of the anorectal region. The patient was initially evaluated with plain radiographs showing distended small bowel loops and placed on IV fluids. The patient was evaluated by the General Surgery Service, who initially recommended conservative management and no surgical intervention due to the bowel obstruction. The patient continued to clinically decline at which point, surgical intervention was entertained after discussions with the family. The patient and family decided to proceed with surgical intervention at which point, the patient underwent diverting loop transverse colostomy on 10/16/2019. The patient received nutrition through peripheral modality, transitioning to total parenteral nutrition postoperatively. The patient slowly regained the ability to take clear liquids advancing to regular diet by the time of discharge. Output through the ostomy site was adequate and appropriate and patient's obstructive process had resolved. Due to patient's overall comorbid status and deconditioning, the patient was deemed an appropriate candidate for ongoing skilled care. The patient has been approved for snf care transfer and we will discharge on 10/20/2019. DISCHARGE MEDICATIONS: 1. Megace 40 mg p.o. daily. 2. Flomax 0.4 mg p.o. daily. 3. Tramadol 50 mg p.o. q.i.d. p.r.n. 4. Melatonin 3 mg p.o. at bedtime p.r.n. FOLLOWUP: The patient may follow up with his primary care provider, Dr. Ramsey Yuen after discharge. The patient may follow up with Dr. Gonzalez with Medical Oncology Service. CONDITION ON DISCHARGE: Guarded. ACTIVITY: Rolling walker with standby/contact guard assistance. DIET: Regular. Supplements, Glucerna shakes t.i.d. CODE STATUS: Do not attempt resuscitation. DISPOSITION: Discharged to snf care, 10/20/2019. TIME SPENT: Total time preparing and coordinating discharge, 37 minutes. Job ID: [id number]
[2019-10-20] MEDS ORDERED: [UNRECOGNIZED DRUG - OTHER] IV SCH (14:00)
[2019-10-20] MEDS ORDERED: POTASSIUM PHOSPHATE IV SCH (14:00)
[2019-10-20] MEDS ORDERED: POTASSIUM ACETATE IV SCH (14:00)
[2019-10-20 15:26] VITALS: BP 157/67; TEMP 97.5
--- NOTE | 2019-10-22 07:38 | EKG ---
Test Reason : Blood Pressure : / mmHG Vent. Rate : 093 BPM Atrial Rate : 101 BPM P-R Int : 000 ms QRS Dur : 172 ms QT Int : 456 ms P-R-T Axes : 000 -75 099 degrees QTc Int : 566 ms Ventricular-paced rhythm Abnormal ECG When compared with ECG of 07-OCT-2019 14:03, Vent. rate has increased BY 3 BPM Confirmed by INDIRA MEZA MD ([id number]) on 10/22/2019 7:38:33 AM Referred By: ZOILA Confirmed By:INDIRA MEZA MD
--- NOTE | 2019-10-27 04:49 | PQF ---
JOHN,HOMER AYAN CAO DO [id number] CLINICAL DOCUMENTATION CLARIFICATION FORM: POST DISCHARGE Addendum to original discharge summary date: ____ Late entry note date: __ DATE: 10/27/2019 ATTN: AYAN JAIMES DO Please exercise your independent, professional judgment in responding to the clarification form. Clinical indicators are provided on the bottom of this form for your review Please check appropriate box(s) to clarify if the following diagnosis has been ruled in or ruled out: Sepsis [ ] Ruled in diagnosis [ ] Continue to treat [ ] Resolved [ x ] Ruled out diagnosis [ ] Cannot rule out diagnosis [ ] Other diagnosis [ ] Unable to determine In addition, please specify: Present on Admission (POA): [ ] Yes [ x ] No [ ] Unable to determine For continuity of documentation, please document condition throughout progress notes and discharge summary. Thank You. CLINICAL INDICATORS - SIGNS / SYMPTOMS / LABS - He was still transferred at that time as it is likely that the patient has developing sepsis- Progress note, 10/15, Mariely Pryor PA-C -She started she was ordering sepsis protocol on him-Event note, 10/15 - Hypotension, likely due to sepsis, etiology unknown, but likely abdominal source-Progress note, 10/15, Mariely Pryor PA-C - Hypotension related to hypovolemia- Progress note 10/16, Terrie Weinstein - Temp: 97.5L -10/19, RR: 24H on 10/13, 30H on 10/15, 18 on 10/19- Vital signs - Pulse: 112H on 10/15, 110H on 10/15- Vital Signs - WBC: 5.1 on 10/17, 4.3L on 10/18- Laboratory report RISK FACTORS - Acute kidney injury- DS, 10/19, Ayan Jaimes DO - Squamous cell carcinoma off the rectum- DS, 10/19, Ayan Jaimes DO TREATMENTS -Zosyn.IV- MAR, 10/15 (This form is maintained as a part of the permanent medical record) 2014 [employer], [employer]. All Rights Reserved [email or web address]
== END 2019-10-20 15:45 | DRG 330 ==
LOC: ERS 13:46 → T4-A 16:59 → CCU 10-17 01:17 → SURG A 10-18 12:31
PROVIDERS: ADMIT Internal Medicine Hematology & Oncology; ATTEND Internal Medicine
PROC: 02HV33Z Insertion of Infusion Device into Superior Vena Cava, Percutaneous Approach (ICD-10-PCS; 2019-10-15)
PROC: B548ZZA Ultrasonography of Superior Vena Cava, Guidance (ICD-10-PCS; 2019-10-15)
PROC: 0DH67UZ Insertion of Feeding Device into Stomach, Via Natural or Artificial Opening (ICD-10-PCS; 2019-10-15)
PROC: 3E0436Z Introduction of Nutritional Substance into Central Vein, Percutaneous Approach (ICD-10-PCS; 2019-10-15)
PROC: 0D1L0Z4 Bypass Transverse Colon to Cutaneous, Open Approach (ICD-10-PCS; principal; 2019-10-16)
DX: C19 Malignant neoplasm of rectosigmoid junction (principal); C21.8 Malignant neoplasm of overlapping sites of rectum, anus and anal canal; N17.9 Acute kidney failure, unspecified; E87.0 Hyperosmolality and hypernatremia; G93.40 Encephalopathy, unspecified; K56.690 Other partial intestinal obstruction; Z66 Do not resuscitate; Z51.5 Encounter for palliative care; C67.9 Malignant neoplasm of bladder, unspecified; E87.6 Hypokalemia; R53.81 Other malaise; N18.3 Chronic kidney disease, stage 3 (moderate); E11.22 Type 2 diabetes mellitus with diabetic chronic kidney disease; K59.00 Constipation, unspecified; I12.9 Hypertensive chronic kidney disease with stage 1 through stage 4 chronic kidney disease, or unspecified chronic kidney disease; R63.4 Abnormal weight loss; I48.91 Unspecified atrial fibrillation; R40.2242 Coma scale, best verbal response, confused conversation, at arrival to emergency department; R40.2362 Coma scale, best motor response, obeys commands, at arrival to emergency department; R40.2142 Coma scale, eyes open, spontaneous, at arrival to emergency department; Z68.21 Body mass index [BMI] 21.0-21.9, adult; Z95.0 Presence of cardiac pacemaker; Z90.49 Acquired absence of other specified parts of digestive tract; Z79.01 Long term (current) use of anticoagulants
CPT/HCPCS: 36415; 36416; 36569; 70450; 71045; 74018; 74019; 74022; 74176; 74177; 74250; 76705; 80048; 80053; 81003; 81015; 82533; 83605; 83690; 83735; 83880; 84100; 84484; 85007; 85025; 85027; 85610; 85730; 86850; 86900; 86901; 87040; 87086; 93005; 93010; 96361; 96374; C1751; J0360; J0694; J0696; J1100; J1644; J1650; J1720; J1815; J2001; J2270; J2405; J2543; J2704; J2765; J3010; J3230; J3475; J3480; J3490; J7030; J7050; J7070; J7626; P9045; Q9963; Q9967; S0028

== ENCOUNTER 2019-10-29 13:25 | Emergency (ER) | payer MEDICARE, BC ==
[2019-10-29] MEDS ORDERED: Lidocaine 1% (PF) 30 ML VIAL ONE (14:55)
--- NOTE | 2019-10-29 14:57 | CT ---
CERVICAL SPINE CT SCAN WITHOUT IV CONTRAST: HISTORY: Injury from trauma, fall from standing, dizziness. FINDINGS: Severe multilevel disk-osteophytosis and facet arthrosis with variable severity canal, lateral recess , and foraminal stenosis including C5-C6, C4-C5, and less so at C3-C4. No acute fracture or dislocat ion. IMPRESSION: Severe multilevel disk-osteophytosis and facet arthrosis without acute fracture or dislocation. POS: RRE
--- NOTE | 2019-10-29 14:58 | CT ---
CT BRAIN WITHOUT CONTRAST: Date: 10/29/2019 HISTORY: Fall from stranding, laceration to posterior scalp. Unwitnessed fall in bathroom. Dizziness. COMPARISON: 10/07/2019. FINDINGS: There are changes of cortical atrophy and chronic small vessel ischemic disease. The ventricular size is stable and the basilar cisterns are patent. No evidence of acute infarct, hemorrhage, midline shift, or abnormal extra-axial fluid collections ar e seen. The bony calvarium is intact. The visualized paranasal sinuses and mastoid air cells are well aerated. There is a scalp contusion in the left posterior parietal region. IMPRESSION: No CT evidence of acute intracranial process. POS: MZA
[2019-10-29] MEDS ORDERED: Lidocaine 1% w/Epinephrine 1:100K 20 ML VIAL ONE (15:30)
== END 2019-10-29 16:30 | disposition home or self-care (01) ==
LOC: ERS 13:25
DX: S06.0X0A Concussion without loss of consciousness, initial encounter (principal); S01.01XA Laceration without foreign body of scalp, initial encounter; E11.9 Type 2 diabetes mellitus without complications; I10 Essential (primary) hypertension; E78.00 Pure hypercholesterolemia, unspecified; M10.9 Gout, unspecified; W01.10XA Fall on same level from slipping, tripping and stumbling with subsequent striking against unspecified object, initial encounter
CPT/HCPCS: 12001; 70450; 72125; J2001

== ENCOUNTER 2020-01-07 15:06 | Inpatient (IN) | payer MEDICARE, BC, OTHER ==
[~2020-01-07 15:06] MED LIST changes: -Heparin 1,000 UNITS/ML VIAL ONE; -Iopamidol 370 76% 50 ML VIAL FS ONE; +Iopamidol-370 76% 500 ML 1 ML ONE
[2020-01-07 15:37] LABS: Hemoglobin 8.8 g/dL (14.0-18.0); Mean Corpuscular Hemoglobin 26.5 pg (27.0-31.0); Mean Corpuscular Volume 82.9 fL (78.0-98.0); Mean Platelet Volume 7.4 fL (7.4-10.4); Platelet Count 205 thou/uL (130-400); RBC Distribution Width 16.4 % (11.5-14.5); White Blood Cell (WBC) Count 8.2 thou/uL (4.8-10.8)
[2020-01-07] MEDS ORDERED: Vancomycin 1.5 GRAM/300 ML BAG 1.5 GM in Premix Bag 1 BAG IVPB SCH (15:45)
[2020-01-07 15:56] LABS: ALT (SGPT) 9 U/L (8-55); AST (SGOT) 12 U/L (5-34); Albumin 2.9 g/dL (3.4-4.8); Alkaline Phosphatase 81 U/L (40-110); Anion Gap 15 mmol/L (10-20); BUN (Urea Nitrogen) 16 mg/dL (8.4-25.7); Band 42 % (5-11); Bilirubin, Total 0.5 mg/dL (0.2-1.2); CK (CPK) 21 U/L (30-200); Calc. Creatinine Clearance 0 mL/min (70-130); Calcium 8.8 mg/dL (7.8-10.44); Carbon Dioxide 24 mmol/L (23-31); Chloride 99 mmol/L (98-107); Estimated GFR-MDRD 70; Globulin 3.1 g/dL (2.4-3.5); Glucose 172 mg/dL (83-110); Hypochromia SLIGHT = 6-15 cells (100X) (0-5/hpf); Lipase 6 U/L (8-78); Lymphocytes 7 % (21-51); MDiff Complete? YES; Monocytes 5 % (0-10); Neutrophil 43 % (42-75); Platelet Morphology Comment Appears Adequate; Polychromasia SLIGHT = 2-3 cells (100X) (0-2/hpf); Potassium 3.5 mmol/L (3.5-5.1); Reactive Lymphocytes 3 % (0-10); Reflex for Review?? YES; Sodium 134 mmol/L (136-145)
--- NOTE | 2020-01-07 15:56 | CT ---
CT head noncontrast HISTORY: Altered mental status. Fever. COMPARISON: 10/29/2019. FINDINGS: There is no evidence of acute intracranial hemorrhage or infarct. Diffuse cortical atrophy and chronic ischemic small vessel disease are similar in appearance to the previous exam. There is no mass effect or shift of midline structures. Visualized paranasal sinuses remain well aera cris. IMPRESSION : Chronic-type findings are stable. No acute abnormalities are demonstrated.
[2020-01-07 15:59] LABS: Bilirubin Negative (Negative); Blood, Urine Trace (Negative); Clarity Turbid (Clear); Glucose, Urine (Dipstick) Normal (Negative); Ketone, Urine Negative (Negative); Leukocyte Negative Leu/uL (Negative); Nitrite Negative (Negative); Protein, Urine (Dipstick) 50 mg/dL (Neg-Trace); Renal Epithelial 0-3 HPF (None Seen); Squamous Epithelial 0-3 HPF (0-3); Transitional Epithelial 0-3 HPF (None Seen); Urobilinogen Normal mg/dL (Less than 2); pH, Urine 5.5 (5.0-9.0)
[2020-01-07 16:07] LABS: WBC/HPF 0-3 HPF (0-3)
[2020-01-07 16:08] LABS: Bacteria/HPF Rare-Few HPF (None Seen)
[2020-01-07 16:18] LABS: CKMB 0.5 ng/mL (0-6.6)
--- NOTE | 2020-01-07 16:32 | RAD ---
PORTABLE CHEST 1 VIEW: Date: 01/07/2020 Time: 1600 hours HISTORY: Fever. Prostate cancer. COMPARISON: 10/17/2019. FINDINGS: Left-sided pacemaker device remains in place. The heart size is mildly enlarged. The aorta is tortuou s. No focal areas of consolidation, pneumothoraces, carlos pulmonary edema, or pleural effusions are s een. IMPRESSION: No acute process. POS: HARRY
[2020-01-07] MEDS ORDERED: Cefepime 2 GM VIAL ONE (16:55)
--- NOTE | 2020-01-07 18:11 | CT ---
ABDOMEN CT WITH CONTRAST PELVIC CT WITH CONTRAST 01/07/20 COMPARISON: 10/07/19 HISTORY: Fever. Altered mental status. Recent diverting colostomy. FINDINGS: ABDOMEN CT: Dependent atelectatic changes in the lung bases. No significant pleural fluid. Heart is enlarged. There is a small amount of pericardial fluid. There is atherosclerosis of the aort a. 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 Atherosclerosis of the aortic root is noted. Surgically absent gallbladder. Appropriate arterial phase enhancement of the liver, spleen, pancreas, and bilateral adrenal glands. No gastrohepatic, retrocrural or periportal lymphadenopathy. No mesenteric mass, free air or free flu id. There is nonspecific stranding of the abdominal mesentery compatible with edematous change. Ventral midline colostomy is identified. Limited evaluation of the alimentary canal by the lack of or al contrast. No evidence of a bowel obstruction. Ileocecal junction has a normal appearance. Normal caliber appendix. There are scattered mucosal thic kening involving the entire colon. There is diverticulosis in the sigmoid colon, without diverticulit is. There is circumferential mucosal thickening involving the mid to distal sigmoid colon and rectum, worrisome for infectious, inflammatory or neoplastic process. There are enlarged retroperitoneal lym ph nodes. Ingot Header aortocaval lymph node measures 2.2 x 1.5 cm, left periaortic lymph node cris ures 1.4 x 2.5 cm and has a component of necrosis. PELVIC CT: Decompressed urinary bladder. No pelvic mass, lymphadenopathy, free air or free fluid. There is stran ding of the presacral fat. The visualized sacrum appears to be intact. IMPRESSION: 1. Diverting colostomy without evidence of bowel obstruction. 2. Diverticulosis without evidence of diverticulitis. 3. Long segment mucosal thickening, circumferential involving the sigmoid colon and rectum, worr isome for infectious, inflammatory or neoplastic process. Interval development of retroperitoneal lym ph nodes which are presumed to be reactive and are secondary to the aforementioned infectious, inflam matory or retroperitoneal process. There is evidence of necrosis in the lymph nodes. 4. Stranding of the presacral fat which is similar to the previous examination. POS: PPP
[2020-01-07] MEDS ORDERED: Acetaminophen 650 MG Suppository PR PRN (18:35)
[2020-01-07] MEDS ORDERED: Acetaminophen 325 MG TAB PO PRN (18:35)
[2020-01-07] MEDS ORDERED: Ondansetron PF 4 MG/2 ML Vial IVP PRN (18:35)
[2020-01-07] MEDS ORDERED: Ondansetron ODT 4 MG TAB PO PRN (18:35)
[2020-01-07] MEDS ORDERED: Dextrose 5% in Water 1,000 ML IV PRN (18:42)
[2020-01-07] MEDS ORDERED: Dextrose 50% Abboject 50 ML SYRINGE SLOW IVP PRN (18:42)
[2020-01-07] MEDS ORDERED: HumaLOG 300 UNITS/3 ML VIAL SC PRN ×2 (18:42)
--- NOTE | 2020-01-07 19:11 | PDOC.EVN ---
Event Note - Event Note Event Note: Patient seen and examined. AMS today with hypotension. Has improved with fluids. Unclear if he may be septic or dehydrated. Mentation has improved. Has significant murmur. Will recommend echo. Cover with broad sprectrum abx and continue IVF. Admit to IMCU. Discussed with Anival Andrew NP.
[2020-01-07 19:40] LABS: Iron 11 ug/dL (65-175); Iron Binding Capacity, Total 136 mcg/dL (261-462)
[2020-01-07 19:49] LABS: Troponin I 0.076 ng/mL (< 0.028)
--- NOTE | 2020-01-07 20:04 | HP ---
PRIMARY CARE PHYSICIAN: Dr. Yuen. CHIEF COMPLAINT: Altered mental status and fever. HISTORY OF PRESENT ILLNESS: The HPI was taken from the patient's daughter and MPOA Mckenna Kaleb via telephone. She reports the patient spiked a fever this morning, T-max of a 104. She reports that the patient has also been displaying more generalized weakness, stating that he was unable to really bear his own weight, which is unusual for him when standing. She denies any recent cough or SOB. Denies any abdominal pain, vomiting or changes in stooling. Denies any dysuria. She also reports that the patient underwent chemo and radiation therapy for colon cancer, last treatment was in April of 2019. After his therapy, the patient had a significant weight loss of 40 to 50 pounds, had been really weak for several months until July when he started to improve, but never returned to his baseline strength or weight. 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 He underwent a diverting loop colostomy by Dr. Curry. Since his discharge from that surgery, she reports that he has had several days of low-grade temperatures, averaging 99.5 to 99.9, which usually spontaneously resolves. She denies any other symptomatology. Denies any URI symptoms, but wondered if he might have COVID since he has several caregivers at home. She reports that this morning that the fever was "wicked". He was more lethargic and had decreased activity, so she decided to call EMS. Upon EMS arrival, the patient was found to be hypotensive, tachycardic, tachypneic, and had a fever. He was given Tylenol and he was brought into the ER. In the ER, the patient has was hypotensive with a blood pressure of 78/44, tachycardic with a heart rate of 108, tachypneic with a respiratory rate of 34. He was 100% on room air. Rectal temperature was 99.8. EKG was V paced, heart rate 102. Initial troponin was 0.101. WBCs were 8.2. Lactic acid was 1.5. Urine was unremarkable. Chest x-ray was unremarkable for anything acute. CT of the brain was negative and CT of the abdomen and pelvis is pending. The patient was given a central line. He was given IV fluid resuscitation, vanc, cefepime IV piggyback. His mentation and blood pressure improved. PAST MEDICAL HISTORY: 1. Hypertension. 2. Diabetes. 3. Pacemaker. 4. Bladder cancer. 5. Colon cancer with radiation and chemotherapy, last treatment April of 2019. 6. Squamous cell anorectal carcinoma. PAST SURGICAL HISTORY: 1. Pacemaker. 2. Cholecystectomy. 3. Diverting loop colostomy. 4. Left lower extremity has a metal lisette. SOCIAL HISTORY: The patient lives at home with his family. He has 24/7 caregivers. He has no history of smoking, illicit drug use, or alcohol intake. He ambulates with a roller walker. FAMILY HISTORY: Noncontributory to this case. REVIEW OF SYSTEMS: All review of systems are negative unless otherwise stated in the HPI. PHYSICAL EXAMINATION: VITAL SIGNS: Temperature of 99.8 rectal, blood pressure 93/50, pulse 97, respirations 30, 100% on room air, 0/10 pain. CONSTITUTIONAL: The patient is alert. He is oriented to person and place. He follows commands. He moves all extremities. HEAD: Atraumatic and normocephalic. EYES: Pupils are equal, round, and reactive to light. Extraocular muscles intact. ENT: Ear exam normal. Pharynx exam normal. NECK: Supple. Trachea is midline. No cervical adenopathy. No JVD. No cervical spinous tenderness. RESPIRATORY: Chest, the patient is in mild respiratory distress. He is tachypneic in the mid 20s. Respirations are even. No secondary muscles elicited. Diffuse rhonchi and rales are present. CARDIOVASCULAR: The patient is V paced on the monitor, tachycardic. He has a 3 /6 holosystolic murmur at the apex. ABDOMEN: Soft, nontender. The patient has a colostomy bag in the upper middle quadrant. ABDOMEN: Soft and nontender to palpation. Active bowel sounds. No guarding, no rigidity, no rebound. Ostomy has a small amount of liquid stool. BACK: No central spinous tenderness. No CVA tenderness. EXTREMITIES: Upper extremities, full range of motion. Strength intact. Sensation intact. Palpable radial pulses. Lower extremities, full range of motion. Strength intact. Sensation intact. Palpable pedal pulses. No swelling. NEUROLOGIC: The patient is alert and oriented to person and place. The patient is able to follow commands. The patient moves all extremities well. No focal deficits. LABS AND DIAGNOSTICS: EKG V-paced, heart rate 102, troponin 0.101, CK-MB 0.5. TSH 1.59. Chest x-ray is negative for any acute process. IMAGIN. CT of the brain was negative for any acute process. 2. CT of the abdomen and pelvis is pending. LABORATORY DATA: Sodium 134, potassium 3.5, chloride of 99, carbon dioxide 24, BUN 16, creatinine 1.01, glucose 172, lactic acid 1.5, total bilirubin 0.5, AST 12, ALT 9, alkaline phosphatase 81. WBCs 8.2, hemoglobin 8.8, hematocrit 27.3, platelets 205. Urine was turbid, trace blood. Microalbuminemia, 4 to 6 rbcs. The patient is COVID negative. IMPRESSION AND PLAN: 1. AMS. We will admit the patient to [facility] inpatient status. Expected length of stay greater than 2 midnights. The patient presented for altered mental status and fever. The patient presented hypotensive, tachycardic and tachypneic. Lactic acid of 1.5, WBCs of 8.2 with some bandemia. UA was unremarkable. Chest x-ray was negative for any acute process. CT was negative for any acute process. CT of the abdomen and pelvis are pending. The patient was given IV fluid resuscitation, 30 mL per kg. Vancomycin and cefepime IV piggyback and had improvement of mental status. The patient has a caregiver 28/01 at his home. COVID test was negative. We will continue IV antibiotics, vancomycin and cefepime broad spectrum coverage. Urine cultures and blood cultures pending. We will continue to trend troponins. We will get a BNP. Obtain echocardiogram. We will continue gentle IV hydration. 2. Elevated troponin. The patient does not present with any chest pain. EKG showed V paced. We will continue to trend troponins likely secondary to demand ischemia. 3. Anemia. The patient presented with a hemoglobin of 8.8, baseline appears to be in the 10 range. The patient and family denies history of any hematemesis or lower GI bleeding. We will check an H and H and FOBT. We will recheck CBC in the a.m. We will check iron studies. 4. Colon cancer. The patient underwent radiation and chemotherapy. Last treatment was on 04/[address] Gonzalez. The patient was also found to have squamous cell anorectal carcinoma that resulted in a large bowel obstruction and a diverting colostomy in October. 5. Diabetes 2. The patient presented with blood sugar of 172. The patient does not take any medications for his diabetes. We will place the patient on mild sliding scale and we will check Accu-Cheks a.c. and at bedtime. 6. Hypertension. The patient is not taking any home medications for high blood pressure. The patient presented with hypotension and fever. We will continue to monitor blood pressures. 7. Pacemaker. The patient presented V paced. We will interrogate pacemaker. 8. Sequential compression devices for deep venous thrombosis prophylaxis. No pharmaco deep venous thrombosis prophylaxis, Protonix for Gastrointestinal prophylaxis. 9. The patient is a full code. Verify this with his daughter, who is the medical power of corporate attorney, Mckenna Manuel. Her number is [phone]. 10. Discussed case with Dr. Pozo. Job ID: [id number] MTDD
[2020-01-07] MEDS: Sodium Chloride 0.9% 1,000 ML IV SCH (21:35)
[2020-01-07 22:55] LABS: Troponin I 0.074 ng/mL (< 0.028)
[2020-01-08 04:03] LABS: #Lymphocytes 0.5 thou/uL (1.20-3.40); #Monocytes 0.5 thou/uL (0.11-0.59); #Neutrophils 4.1 thou/uL (1.40-6.50); %Eosinophils 0.1 % (0.0-10.0); %Lymphocytes 9.4 % (21.0-51.0); %Monocytes 9.2 % (0.0-10.0); %Neutrophils 81.3 % (42.0-75.0); Hemoglobin 7.5 g/dL (14.0-18.0); Mean Corpuscular HGB CONC 31.4 g/dL (32.0-36.0); Mean Corpuscular Hemoglobin 26.4 pg (27.0-31.0); Mean Platelet Volume 7.4 fL (7.4-10.4); Platelet Count 174 thou/uL (130-400); RBC Distribution Width 16.5 % (11.5-14.5); Red Blood Cell (RBC) Count 2.82 mill/uL (4.70-6.10); White Blood Cell (WBC) Count 5.1 thou/uL (4.8-10.8)
[2020-01-08 04:25] LABS: Anion Gap 9 mmol/L (10-20); BUN (Urea Nitrogen) 13 mg/dL (8.4-25.7); Calc. Creatinine Clearance 63 mL/min (70-130); Calcium 8.1 mg/dL (7.8-10.44); Carbon Dioxide 24 mmol/L (23-31); Chloride 105 mmol/L (98-107); Estimated GFR-MDRD Greater than 90; Glucose 126 mg/dL (83-110); Potassium 3.6 mmol/L (3.5-5.1); Sodium 134 mmol/L (136-145)
[2020-01-08] MEDS: Cefepime 2 GM in Sodium Chloride 0.9% 100 ML IVPB SCH ×2 (04:33→15:59)
--- NOTE | 2020-01-08 14:12 | PDOC.HOSPP ---
- Subjective Encounter Date: 01/08/20 Encounter Time: 12:45 Subjective: pt seen and echo being done, talk to RN. pt is not verbalizing much, appears that he is at baseline mentation-polk - Objective Vital Signs & Weight: Vital Signs (12 hours) Temp Pulse Ox 01/08/20 11:16 98.8 F 01/08/20 08:00 98 01/08/20 07:22 98.8 F 01/08/20 03:48 98.8 F Weight Weight 147 lb 14.883 oz Most Recent Monitor Data Heart Rate from ECG 73 NIBP 133/62 NIBP BP-Mean 85 Respiration from ECG 29 SpO2 100 I&O: 01/07/20 01/08/20 01/09/20 06:59 06:59 06:59 Intake Total 0 Output Total 650 Balance -650 Result Diagrams: 01/08/20 03:26 01/08/20 03:26 Additional Labs: Accuchecks 01/08/20 01/08/20 10:45 05:56 POC Glucose 125 H 133 H Hospitalist ROS - Medication Medications: Active Medications Generic Name Dose Route Start Last Admin Trade Name Freq PRN Reason Stop Dose Admin Sodium Chloride 1,000 mls @ 50 mls/hr 01/07/20 18:45 01/07/20 21:35 Normal Saline 0.9% IV 1,000 mls .Q20H TAMMY Administration Cefepime HCl 2 gm/ Sodium 100 mls @ 200 mls/hr 01/08/20 04:00 01/08/20 04:33 Chloride IVPB 100 mls 0400,1600 TAMMY Administration - Exam General Appearance: NAD, awake alert Eye: PERRL ENT: normocephalic atraumatic Neck: supple Heart: RRR Respiratory: CTAB, normal chest expansion Gastrointestinal: soft, normal bowel sounds Neurological: no focal deficits Psychiatric: A&O x 3 Hosp A/P - Plan Hypovolumic hypotension Dehydration SIRS --getting IVF - bl myra neg - u myra on non-hemolytis strep - cw Vanc and cefepime for another day and deescalate after 48 hrs. Abnormal trop -- type II demand ischemia -- will get another set -- as 1st one indeterminate -- echo - no sig..abnormality that needs immediate attention EF 55% severe Ao stenosis mild TR Mod MR Metabolic encephalopathy vs.. baseline age associated dementia. - unclear what his baseline mentation is - monitor for now.
[2020-01-08 14:39] LABS: Hemoglobin 7.4 g/dL (14.0-18.0)
[2020-01-08 15:13] LABS: CKMB 0.9 ng/mL (0-6.6)
[2020-01-08 15:20] VITALS: BMI 21.2
[2020-01-08] MEDS: Sodium Chloride 0.9% 1,000 ML IV SCH (15:51)
[2020-01-08] MEDS ORDERED: Vancomycin 1 GM in Premix Bag 1 BAG IVPB SCH (16:00)
[2020-01-08 20:57] LABS: CKMB 0.8 ng/mL (0-6.6)
[2020-01-08] MEDS: Melatonin 3 MG TAB PO SCH ×2 (20:58→22:45)
[2020-01-09] MEDS: Cefepime 2 GM in Sodium Chloride 0.9% 100 ML IVPB SCH ×2 (03:45→15:07)
[2020-01-09] MEDS: Sodium Chloride 0.9% 1,000 ML IV SCH (12:03)
[2020-01-09 15:25] LABS: Vancomycin, Trough 8.1 ug/mL
[2020-01-09] MEDS ORDERED: Vancomycin HCl 750 MG in Sodium Chloride 0.9% 250 ML 250 ML IVPB SCH (16:00)
--- NOTE | 2020-01-09 17:09 | PDOC.HOSPP ---
- Subjective Encounter Date: 01/09/20 Encounter Time: 10:00 Subjective: no overnight events. this morning, agitated, noncooperative, abusive. Spoke with daughter and requested that she arrives in order to assess if patient at baseline and to attempt to ellicit cooperation. - Objective Vital Signs & Weight: Vital Signs (12 hours) Temp Pulse Resp BP Pulse Ox 01/09/20 08:00 97 01/09/20 07:31 97.8 F 70 18 149/66 H 97 Weight Admit Weight 144 lb 13.499 oz Weight 150 lb 6.4 oz Most Recent Monitor Data Heart Rate from ECG 79 NIBP 151/72 NIBP BP-Mean 98 Respiration from ECG 32 SpO2 100 I&O: 01/08/20 01/09/20 01/10/20 06:59 06:59 06:59 Intake Total 1554 Output Total 2300 Balance -746 Result Diagrams: 01/08/20 14:17 01/08/20 03:26 Additional Labs: Accuchecks 01/09/20 01/09/20 01/08/20 11:52 04:26 21:46 POC Glucose 189 H 134 H 186 H 01/08/20 17:15 POC Glucose 181 H Hospitalist ROS - Review of Systems ROS unobtainable: due to mental status (agitated and noncooperative) - Medication Medications: Active Medications Generic Name Dose Route Start Last Admin Trade Name Freq PRN Reason Stop Dose Admin Sodium Chloride 1,000 mls @ 50 mls/hr 01/07/20 18:45 01/09/20 12:03 Normal Saline 0.9% IV Not Given .Q20H TAMMY Insulin Human Lispro 0 units 01/07/20 18:42 01/09/20 12:17 Humalog SC 2 unit .MILD SLIDING SCALE PRN Administration Mild Correctional Scale Melatonin 3 mg 01/08/20 21:00 01/08/20 22:45 Melatonin PO Not Given HS TAMMY Sodium Chloride 10 ml 01/07/20 18:35 01/08/20 20:58 Flush - Normal Saline IVF 10 ml Q12HR PRN Administration Saline Flush - Exam Psychiatric - other findings: agitated when requested to interact Hosp A/P - Plan #agitation -no fever since admission -UCx showing mild baceriuria, UA relatively benign, no associated symptoms; stopped antibiotics -Head CT shows chronic diffuse atrophy with chronic ischemic small vessel disease; however, symptoms not c/w vascular dementia -per daughter, has been on antidepressants for a month, which have been discontinued as inpatient -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
[2020-01-09] MEDS ORDERED: Electrolyte Replacement Protoc 1 EACH EACH FS SCH (17:15)
[2020-01-09] MEDS ORDERED: Escitalopram Oxalate 10 mg Tablet PO SCH (17:45)
[2020-01-09] MEDS: Melatonin 3 MG TAB PO SCH (20:34)
[2020-01-10 06:16] LABS: Hemoglobin 7.7 g/dL (14.0-18.0)
[2020-01-10 06:31] LABS: Anion Gap 12 mmol/L (10-20); BUN (Urea Nitrogen) 11 mg/dL (8.4-25.7); Calc. Creatinine Clearance 67 mL/min (70-130); Calcium 8.3 mg/dL (7.8-10.44); Carbon Dioxide 23 mmol/L (23-31); Chloride 104 mmol/L (98-107); Estimated GFR-MDRD Greater than 90; Glucose 110 mg/dL (83-110); Magnesium 1.5 mg/dL (1.6-2.6); Potassium 3.3 mmol/L (3.5-5.1); Sodium 136 mmol/L (136-145)
[2020-01-10] MEDS ORDERED: Magnesium 2 GM/50 ML 2 GM in Premix Bag 1 BAG IVPB SCH (06:45)
[2020-01-10] MEDS ORDERED: Potassium Chloride 20 MEQ TAB PO SCH (07:00)
[2020-01-10 08:38] VITALS: BP 143/70; TEMP 97.7
[2020-01-10] MEDS: Sodium Chloride 0.9% 1,000 ML IV SCH (08:40)
[2020-01-10] MEDS: Escitalopram Oxalate 10 mg Tablet PO SCH ×3 (08:59→13:50)
[2020-01-10] MEDS ORDERED: Allopurinol 300 MG TAB PO SCH (09:00)
[2020-01-10] MEDS ORDERED: Potassium Chloride 10 MEQ TAB PO SCH (09:00)
--- NOTE | 2020-01-11 08:46 | DIS ---
DATE OF ADMISSION: 01/07/2020 DATE OF DISCHARGE: 01/10/2020 HOSPITAL COURSE: Mr. Espino is an 89-year-old male with a medical history of colon cancer with radiation and chemotherapy, last treatment in April 2019; squamous cell anorectal carcinoma; bladder cancer; diabetes; severe valvulopathy and diverting loop colostomy, who presented for drowsiness and subjective fever. On presentation, the patient was found to be afebrile, but he was hypotensive and responded to fluids in the ED. The patient's urinalysis showed mild bacteriuria and urine culture showed a low burden of enterococcus, but considering the patient was unable to communicate symptoms, he was treated with antibiotics for complicated urinary tract infection and improved in terms of his hemodynamic stability and responsiveness. However, during inpatient stay, the patient became increasingly agitated. It was noticed that the patient's antidepressive medication was stopped and he was diagnosed with antidepressant discontinuation withdrawal. After his antidepressants were restarted, the patient's mood and affect improved. On the day of discharge, the patient was hemodynamically stable with no complaints and cooperative. PHYSICAL EXAMINATION: VITAL SIGNS: Blood pressure 143/70, pulse 68, respiratory rate 20, oxygen saturation 95% on room air, temperature 97.7. GENERAL: Lying comfortably in bed, in no apparent distress. HEAD: Atraumatic, normocephalic. EYES: PERRL. EOMI. NECK: No JVD. CARDIAC: Regular rate and rhythm, 3/6 holosystolic murmur at the apex. LUNGS: Clear to auscultation bilaterally. No wheezing, rales, or rhonchi. ABDOMEN: Soft, nontender, nondistended. Ostomy is functional. EXTREMITIES: No edema. NEUROLOGIC: Alert and oriented to person and place, not to time. Able to follow commands. MEDICATION LIST: New medications: 1. Levofloxacin 750 mg p.o. daily for 2 more days for the treatment of complicated urinary tract infection. 2. Lisinopril 10 mg p.o. daily considering severe valvulopathy including aortic stenosis and hypertension. Continued medications: 1. Allopurinol. 2. Escitalopram oxalate 10 mg p.o. q.i.d. for depression. 3. Melatonin. 4. Potassium chloride. 5. Tamsulosin. Modified medications: 1. Simethicone 80 mg t.i.d. with meals was changed from scheduled to p.r.n. bloating. 2. Atenolol was discontinued in favor of lisinopril considering severe aortic stenosis. Prior to discharge, the patient's family was contacted regarding the patient's acute condition in addition to his general prognosis. The patient will be followed up by his primary care physician. Of note, the patient is DNAR. Per the daughter's request who is his MPOA, the patient should remain DNAR as both inpatient and outpatient. Job ID: [id number]
--- NOTE | 2020-01-12 00:48 | PQF ---
[employer] Transverse Abdominal Muscle Nurse Crystal Reports Winform Viewer JOHN,HOMER Antonio PREMA, MASOOD [id number] IZZY- IZZY [id number] CLINICAL DOCUMENTATION CLARIFICATION FORM: POST DISCHARGE Addendum to original discharge summary date: ____ Late entry note date: __ DATE: 01/12/20 ATTN: Masood Mendoza Please exercise your independent, professional judgment in responding to the clarification form. Clinical indicators are provided on the bottom of this form for your review Can you please further clarify the diagnosis of the patient? Please check appropriate box(es): [ ] Sepsis due to UTI [ ] Severe sepsis with associated acute organ dysfunction: [ ] Encephalopathy (metabolic) (septic) [ ] Localized infection without sepsis [ ] SIRS due to non-infectious process (please specify etiology) [ ] with organ dysfunction [ ] without organ dysfunction [ x ] Other diagnosis please specify_dehydration [ ] Unable to determine For continuity of documentation, please document condition throughout progress notes and discharge summary. Thank You. CLINICAL INDICATORS - SIGNS / SYMPTOMS / LABS / RESULTS AND LOCATION IN ED Provider pg.1- brought in by EMS at increased confusion and fever at home ED Provider pg.2- PE notable for tachypnea, fever, normal o2 Sat, mild tachycardia ED Provider pg.2- VS 93/50, pulse 97, , RR 30, temp 98 ED Provider pg.3- hypotension, anemia, elevated troponin Event Note- unclear if he may be septic or dehydrated Hospitalist PN pg.3- Hypovolemic hypotension, dehydration, SIRS Hospitalist PN- Metabolic encephalopathy vs baseline age associated dementia DS pg.1- urinalysis shoed mild bacteriuria ans urine cultured showed enterococcus Labs WBC: 01/06=8.2 01/07=5.1 Labs Lactate: 07/02=1.5 Blood culture 01/06 no growth RISK FACTORS / RESULTS AND LOCATION IN MR 89 years old- H and P pg.1 Colon cancer- H and P pg.1 UTI- DS pg.1 Bladder cancer- H and P pg.1 Recto anal cancer- H and P pg.1 DM-ED Notes 01/06 TREATMENTS / RESULTS AND LOCATION IN Chest X ray 01/06 Urine culture- Microbiology Blood culture- Microbiology Abdomen/Pelvis CT 01/06 Vancomycin 1.5gm IV- MAR Cefepime 2gm IV- MAR Levaquin 750mg PO- MAR IV Fluids- MAR (This form is maintained as a part of the permanent medical record) 2014 [employer]. All Rights Reserved [email or web address]
--- NOTE | 2020-01-12 00:57 | PQF ---
SAP Basket Grader Crystal Reports Winform Viewer JOHN,HOMER MASOOD BENSON [id number] IZZY- IZZY [id number] CLINICAL DOCUMENTATION CLARIFICATION FORM: POST DISCHARGE Addendum to original discharge summary date: ____ Late entry note date: __ DATE: 01/12/20 ATTN: Masood Mendoza Please exercise your independent, professional judgment in responding to the clarification form. Clinical indicators are provided on the bottom of this form for your review Can you please further clarify the diagnosis of the patient? Please check appropriate box(s): [ ] Acute Coronary Syndrome (ACS) without Acute GA meaning Unstable Angina [ ] NSTEMI (GA type I) [ x ] NSTEMI due to Demand Ischemia (AMI Type II) [ x ] Demand Ischemia without GA [ ] Other diagnosis please specify [ ] Unable to determine CLINICAL INDICATORS - SIGNS / SYMPTOMS / LABS H and P pg.3- Elevated troponin. Patient does not present with any chest pain Hospitalist PN 01/07 pg.3- abnormal trop---type II demand ischemia H and P pg.3- EKG showed V placed. H and P pg.3- trend troponins likely 2/2 demand ischemia Laboratory-Troponin 0.101H, 0.076H, 0.074H, 0.038H, 0.038H Lab CK-MB: 01/06=0.5 01/07=0.9 01/07=0.8 Vital Signs 01/07: Temp=98.8 Pulse=78 Respi=24 RD=165/59 RISKS: 89 years old- H and P pg.1 Colon cancer- H and P pg.1 UTI- DS pg.1 HTN- Hand P pg.1 DM2- H and P pg.1 Hyperlipidemia- ED Provider pg.1 Aortic Stenosis PN 01/07 Mitral and Tricuspid regurgitation PN 07/03 TREATMENTS: Chest X ray 01/06 Echocardiogram 01/07 EKG- Ed Provider pg.3 IV Fluids- MAR Troponin Monitoring- Laboratory SAP Basket Grader Crystal Reports Winform Viewer (This form is maintained as a part of the permanent medical record) 2014 [employer], [employer]. All Rights Reserved [email or web address]
--- NOTE | 2020-01-12 20:41 | PQF ---
SAP Lump Room Supervisor Crystal Reports Winform Viewer JOHN,HOMER MASOOD BENSON [id number] TEAGAN MAGANA [id number] CLINICAL DOCUMENTATION CLARIFICATION FORM: POST DISCHARGE Addendum to original discharge summary date: ____ Late entry note date: __ DATE: 01/12/20 ATTN: Masood Mendoza Please exercise your independent, professional judgment in responding to the clarification form. Clinical indicators are provided on the bottom of this form for your review Can you please further clarify is acute metabolic encephalopathy is ruled in or ruled out? Metabolic Encephalopathy [ ] Ruled in diagnosis [ ] Continue to treat [ ] Resolved [ x ] Ruled out diagnosis [ ] Cannot rule out diagnosis [ ] Other diagnosis [ ] Unable to determine For continuity of documentation, please document condition throughout progress notes and discharge summary. Thank You. CLINICAL INDICATORS - SIGNS / SYMPTOMS / LABS ED Provider pg.1- brought in by EMS at increased confusion and fever at home H and P pg.1- chief complaint: altered mental status and fever H and P pg.2- PE: the patient is alert, he is oriented to person and place, follows commands Hospitalist PN pg.3- Hypovolemic hypotension, dehydration, SIRS Hospitalist PN- Metabolic encephalopathy vs baseline age associated dementia DS pg.1- urinalysis shoed mild bacteriuria ans urine cultured showed enterococcus RISK FACTORS 89 years old- H and P pg.1 Colon cancer- H and P pg.1 UTI- DS pg.1 HTN- Hand P pg.1 DM2- H and P pg.1 Dehydration- Hospitalist PN TREATMENTS IMCU- H and P pg.3 Chest X ray 01/06 Urine culture- Microbiology Blood culture- Microbiology Abdomen/Pelvis CT 01/06 Echocardiogram 01/07 Vancomycin 1.5gm IV- MAR Cefepime 2gm IV- MAR Levaquin 750mg PO- MAR IV Fluids- MAR (This form is maintained as a part of the permanent medical record) 2014 [employer] All Rights Reserved Riaz SATHYA
--- NOTE | 2020-01-12 20:47 | PQF ---
[employer] Solar Sales Associate Crystal Reports Winform Viewer JOHN,HOMER MASOOD BENSON [id number] TEAGAN MAGANA [id number] CLINICAL DOCUMENTATION CLARIFICATION FORM: POST DISCHARGE Addendum to original discharge summary date: ____ Late entry note date: __ DATE: 01/12/20 ATTN: Masood Mendoza Please exercise your independent, professional judgment in responding to the clarification form. Clinical indicators are provided on the bottom of this form for your review Please check appropriate box(s): Conflicting documentation was noted in the Physician Documentation note, please clarify if patient is being treated/monitored for: [ ] NSTEMI due to demand ischemia [x] Demand ischemia without IL [ ] Other diagnosis please specify [ ] Unable to determine For continuity of documentation, please document condition throughout progress notes and discharge summary. Thank You. CLINICAL INDICATORS - SIGNS / SYMPTOMS/ LABS H and P pg.3- Elevated troponin. Patient does not present with any chest pain Hospitalist PN 01/07 pg.3- abnormal trop---type II demand ischemia H and P pg.3- EKG showed V placed. H and P pg.3- trend troponins likely 2/2 demand ischemia Laboratory-Troponin 0.101H, 0.076H, 0.074H, 0.038H, 0.038H Lab CK-MB: 01/06=0.5 01/07=0.9 01/07=0.8 Vital Signs 01/07: Temp=98.8 Pulse=78 Respi=24 GM=711/59 RISK FACTORS 89 years old- H and P pg.1 Colon cancer- H and P pg.1 UTI- DS pg.1 HTN- Hand P pg.1 DM2- H and P pg.1 Hyperlipidemia- ED Provider pg.1 Aortic Stenosis PN 01/07 Mitral and Tricuspid regurgitation PN 01/07 TREATMENT Chest X ray 01/06 Echocardiogram 01/07 EKG- Ed Provider pg.3 IV Fluids- MAR Troponin Monitoring- Laboratory [employer] Solar Sales Associate Crystal Reports Winform Viewer (This form is maintained as a part of the permanent medical record) 2014 [employer]. All Rights Reserved [email or web address]
== END 2020-01-10 14:02 | disposition home or self-care (01) | DRG 690 ==
LOC: ERS 15:06 → ERHOLD 17:27 → IMCU/EMU 01-08 01:15 → T4-B 01-08 22:39 → T4-A 01-09 02:15
PROVIDERS: ADMIT Internal Medicine; ATTEND Internal Medicine
DX: N39.0 Urinary tract infection, site not specified (principal); C18.9 Malignant neoplasm of colon, unspecified; C78.5 Secondary malignant neoplasm of large intestine and rectum; I24.8 Other forms of acute ischemic heart disease; Z20.828 Contact with and (suspected) exposure to other viral communicable diseases; Z66 Do not resuscitate; I10 Essential (primary) hypertension; E11.9 Type 2 diabetes mellitus without complications; E78.00 Pure hypercholesterolemia, unspecified; M10.9 Gout, unspecified; C67.9 Malignant neoplasm of bladder, unspecified; B95.2 Enterococcus as the cause of diseases classified elsewhere; E86.0 Dehydration; T43.205A Adverse effect of unspecified antidepressants, initial encounter; R45.1 Restlessness and agitation; Z95.0 Presence of cardiac pacemaker; Z79.899 Other long term (current) drug therapy; Z93.3 Colostomy status
CPT/HCPCS: 36415; 36416; 70450; 71045; 74177; 80048; 80053; 80202; 81003; 81015; 82274; 82550; 82553; 82607; 82728; 82746; 83540; 83550; 83605; 83690; 83735; 83880; 84443; 84484; 85014; 85018; 85025; 85060; 87040; 87077; 87086; 93005; 93306; J0692; J3370; J3475; J3490; Q9967; U0002